=== PATIENT | male | born 1970 | race Caucasian/White ===

== ENCOUNTER 2020-01-15 14:40 | Emergency (ER) | payer BC ==
[~2020-01-15] VITALS: Ht 193 cm; Wt 147.4 kg
[~2020-01-15 14:40] MED LIST: CRESTOR10 MG PO; LEVOXYL200 MCG PO; TRICOR145 MG PO
--- OUTSIDE RECORDS SUMMARY | 2020-01-15 14:43 | XMS REPORT | Summary of Care ---
Author RONI Baker M.A. Organization Unknown Address [facility] Phone Unavailable Care Team Providers Care Tool Lapper Hand Name Role Phone TEREZA BARAJAS Unavailable Unavailable MONSE GARY [place], JOAQUIM MCCANN Unavailable Unavailable LEANNE GARY, PATRIZIA Walter Unavailable Unavailable MONSE Allison, JOAQUIM Unavailable Unavailable ERICKA PANIAGUA, TEREZA Unavailable Unavailable Unavailable Unavailable Functional Status Name Dates Details Functional status health issues are not documented Status: Name Dates Details Cognitive status health issues are not d ocumented Status: Problems Name Dates Details GAIL positive (795.79, R76.8) Status: Active Psoriasis (696.1, L40.9) Status: Active Inflamed scrotum (608.4, N49.2) Status: Active Paresthesia of skin (782.0, R20.2) Status: Active Morbid obesity (278.01, E66.01) Status: Active Acute pharyngitis (462, J02.9) Status: Active Malaise (780.79, R53.81) Status: Active Vitamin D deficiency (268.9, E55.9) Status: Active Hyperlipidemia (272.4, E78.5) Status: Active BMI 35.0-35.9,adult (V85.35, Z68.35) Status: Active Elevated bilirubin (277.4, R17) Status: Active Hematuria (599.70, R31.9) Status: Active Diarrhea (787.91, R19.7) Status: Active Back pain (724.5, M54.9) Status: Active Hospital discharge follow-up (V67.59, Z0 9) Status: Active Stroke (434.91, I63.9) Status: Active Word finding difficulty (V40.1, R47.89) Status: Active Speech block (784.59, R47.89) Status: Active Speech disorder (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 Quantity: 90 BARNETT P.A., TEREZA * Start : 02-Sep-2013 Active Humira Pen KIT INJECT ML Every other week pt states not being sure of dose. * Refills: 0 Active Levothyroxine Sodium 175 MCG Oral Tablet TAKE 1 TABLET DAILY * Quantity: 90 Refills: 1 BARNETT P.A., TEREZA * Start : 04-Apr-2018 Active Duexis 800-26.6 MG Oral Tablet TAKE 1 TABLET BEDTIME * Quantity: 30 Refills: 5 BARNETT P.A., TEREZA * Start : 18-Jul-2019 Active Atorvastatin Calcium 80 MG Oral Tablet TAKE 1 TABLET AT BEDTIME. * Quantity: 90 Refills: 0 BARNETT P.A., TEREZA Active Aspirin 81 MG Oral Tablet Chewable * Refills: 0 Active Clopidogrel Bisulfate 75 MG Oral Tablet TAKE 1 TABLET DAILY. 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, G51.0) Status: Resolved Procedures Procedure Dates Details [[facility]] TSH, 3RD GENERATION W/REFLEX TO FT4 Date: 09-Oct-2019 Immunization Name Dates Details Tdap on: 14-Jul-2008 Tdap (Boostrix) Lot #: [id number] on: 09-Oct-2019 Family History Name Dates Details Family history of Acute Myocardial Infar ction (V17.3) Status: Active Family history of Hypertension (V17.49) Status: Active Name Dates Details Family history of Acute Myocardial Infar ction (V17.3) Status: Active Family history of Diabetes Mellitus (V18 .0) Status: Active Social History Name Dates Details - Status: Name Dates Details Never smoked tobacco (finding) Vital Signs Date Test Result Details [id number] Physical Findings 5 Status: Comments: PH Q-9 Adult Depression Screening Results Date Description Value Details Results not documented Plan of Care Name Dates Details Planned Observations Planned Goals not documented Interventions Provided Labs/Procedures/Imaging* [[facility]] TSH, 3RD GENERATION W/REFLEX TO FT4; To Be Done: 09 Oct 2019 Follow-ups/Referrals* Dermatology Referral; To Be Done: 09 Oct 2019 Medications/Immunizations Administered* Tdap (Boostrix); Done: 09 Oct 2019 Instructions Name Dates Details Instructions not documented Encounters Appointment; TEREZA BARNETT P.A. Encounter Diagnosis: Problem not documented On: 22-Mar-2018 15:00 Appointment; TEREZA BARNETT P.A. Encounter Diagnosis: Problem not documented On: 22-Aug-2018 15:00 Appointment; TEREZA BARNETT P.A. Encounter Diagnosis: Problem not documented On: 20-Mar-2019 15:00 Appointment; PALMA CASAREZ P.A. Encounter Diagnosis: Problem not documented On: 04-May-2019 9:15 Appointment; TEREZA BARNETT P.A. Encounter Diagnosis: Problem not documented On: 22-Aug-2019 10:45 Appointment; TEREZA BARNETT P.A. Encounter Diagnosis: Problem not documented On: 09-Oct-2019 10:00
--- OUTSIDE RECORDS SUMMARY | 2020-01-15 14:43 | XMS REPORT ---
Author Author RONI Pereira Organization Unknown Address Unknown Phone Care Team Providers Care Plate Mounter Name Role Phone Shanti Pereira PP Unavailable Reason for Referral No Reason for Referral was given. History of Present Illness No HPI available. Problems * Normal Routine History And Physical Adult (V70.0); (Active) * Hypothyroidism (244.9); (Active) * Hyperlipidemia (272.4); (Active) Medication * Synthroid 200 MCG Oral Tablet; TAKE 1 TABLET DAILY. NEEDS OFFICE VISIT; Start Date: 09/02/2013; End Date: (Active) * Synthroid 25 MCG Oral Tablet; TAKE 1 TABLET DAILY.NEEDS OFFICE VISIT; Start Date: 09/02/2013; End Date: (Active) * Fenofibrate 145 MG Oral Tablet; 1 po once a day NEEDS OFFICE VISIT; Start Date: 09/02/2013; End Date: (Active) * Crestor 10 MG Oral Tablet; 1 po q dayNEEDS OFFICE VISIT; Start Date: 09/02/2013; End Date: (Active) Allergies and Adverse Reactions * Not Known Past Medical History * No Significant Medical History Advance Directives * No Advance Directives available. Encounters * AUDIT 09/02/2013
--- OUTSIDE RECORDS SUMMARY | 2020-01-15 14:43 | XMS REPORT | Summary of Care ---
Author RONI Sarabia Organization Unknown Address Unknown Phone Unavailable Care Team Providers Care Ammonia Refrigeration Worker Name Role Phone TEREZA BARAJAS Unavailable Unavailable Eduarda Goldberg, Emily Unavailable Unavailable MONSE GARY [place], JOAQUIM MCCANN Unavailable Unavailable LEANNE GARY, PATRIZIA Walter Unavailable Unavailable MONSE Allison, JOAQUIM Pyle Unavailable ERICKA PANIAGUA, TEREZA Unavailable Unavailable Unavailable [...] Status: Active Hyperlipidemia (272.4, E78.5) Status: Active Hypothyroidism (244.9, E03.9) Status: Active BMI 35.0-35.9,adult (V85.35, Z68.35) Status: Active Elevated bilirubin (277.4, R17) Status: Active Hematuria (599.70, R31.9) Status: Active Diarrhea (787.91, R19.7) Status: Active Back pain (724.5, M54.9) Status: Active Hospital discharge follow-up (V67.59, Z0 9) Status: Active Stroke (434.91, I63.9) Status: Active Word finding difficulty (V40.1, R47.89) Status: Active Speech block (784.59, R47.89) Status: Active 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 * Quantity: 30 Refills: 2 BARNETT P.A., TEREZA * Start : 09-Jul-2018 Active Duexis 800-26.6 MG Oral Tablet TAKE 1 TABLET BEDTIME * Quantity: 30 Refills: 5 BARNETT P.A., TEREZA * Start : 18-Jul-2019 Active Atorvastatin Calcium 80 MG Oral Tablet TAKE 1 TABLET AT BEDTIME. 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, G51.0) Status: Resolved Procedures Procedure Dates Details Procedures not documented Immunization Name Dates Details Tdap on: 14-Jul-2008 Family History Name Dates Details Family history of Acute Myocardial Infar ction (V17.3) Status: Active Family history of Hypertension (V17.49) Status: Active Name Dates Details Family history of Acute Myocardial Infar ction (V17.3) Status: Active Family history of Diabetes Mellitus (V18 .0) Status: Active Social History Name Dates Details - Status: Name Dates Details Never smoker Vital Signs Date Test Result Details [id number] BP Systolic 123 mm[Hg] Status: Comments: Lo cation: LUE; Position: Sitting BP Diastolic 82 mm[Hg] Status: Comments: Lo cation: LUE; Position: Sitting Height 76 in Status: Weight 311 lb Status: Body Mass Index Calculated 37.86 kg/m2 Status: Body Surface Area Calculated 2.67 m2 Status: Temperature 98 f Status: Comments: Me thod: Temporal Heart Rate 66 /min Status: Respiration Rate 16 /min Status: Physical Findings 0 Status: Comments: Maurice candelario Screen - How many times in the past yr have you had 5 (for M) or 4 (for F) or 4 (for all > 65yrs) or more drinks in a day? Results Date Description Value Details Results not documented Plan of Care Name Dates Details Planned Observations Planned Goals not documented Interventions Provided Labs/Procedures/Imaging* [O] Urine Dipstick (In Office); Done: 04 May 2019 Instructions Name Dates Details Instructions not documented Encounters Appointment; TEREZA BARNETT PHeather Encounter Diagnosis: Problem not documented On: 22-Mar-2018 15:00 Appointment; TEREZA BARNETT P.A. Encounter Diagnosis: Problem not documented On: 22-Aug-2018 15:00 Appointment; TEREZA BARNETT PHeather Encounter Diagnosis: Problem not documented On: 20-Mar-2019 15:00 Appointment; PALMA CASAREZ P.A. Encounter Diagnosis: Problem not documented On: 04-May-2019 9:15
--- OUTSIDE RECORDS SUMMARY | 2020-01-15 14:43 | XMS REPORT | Summary of Care ---
Author Author [facility] Address Unknown Phone Unavailable Encounter HQ Jose_javi(CASSIUS) [id number] Date(s): 10/10/19 - 11/08/19 [facility] Discharge Disposition: Home or Self Care Attending Physician: TEREZA BARNETT Vital Signs No data available for this section Problem List No data available for this section Allergies, Adverse Reactions, Alerts No data available for this section Medications No data available for this section Results No data available for this section Immunizations No data available for this section Procedures No data available for this section Social History Social History Type Response Assessment and Plan No data available for this section
--- OUTSIDE RECORDS SUMMARY | 2020-01-15 14:43 | XMS REPORT | Clinical Summary ---
Author Author CANDIS [facility] Address Unknown Phone Unavailable Care Team Providers Care Waxer Name Role Phone PCP Unavailable Allergies Comments Active Allergy Reactions Severity Noted Date Other reaction(s): Can not take Brand Synthroid. He takes generic levothyroxine at home Levothyroxine Sodium Itching 08/11/2019 Medications End Date Status Medication Sig Dispensed Refills Start Date Active fenofibrate (TRICOR) 145 Take 145 mg 0 MG tablet by mouth daily. Active HUMIRA PEN 40 mg/0.8 mL 0 PnKt 9 08/16/2020 Active aspirin 81 MG chewable Take 1 tablet 30 tablet 11 0 tablet (81 mg total) 0 by mouth daily. 08/15/2020 Active atorvastatin (LIPITOR) 80 Take 1 tablet 30 tablet 11 MG tablet (80 mg total) 0 by mouth nightly. Active ibuprofen-famotidine Take by mouth 0 (DUEXIS) 800-26.6 mg Tab 3 (three) times daily. Active levothyroxine sodium Take 175 mcg 0 (LEVOXYL ORAL) by mouth daily. 10/03/2019 Discontinued rosuvastatin (CRESTOR) 10 Take 10 mg by 0 08/15 0201 MG tablet mouth daily. 4 10/03/2019 Discontinued levothyroxine (SYNTHROID) Daily 0 200 MCG tablet 11/04/2019 clopidogrel (PLAVIX) 75 Take 1 tablet 30 tablet 0 mg tablet (75 mg total) 0 by mouth daily for 30 days. Active Problems Problem Noted Date PFO (patent foramen ovale) 10/03/2019 Psoriasis 08/12/2019 Status post administration of tPA (rtPA) in a [facility] facility within the 08/12/2019 last 24 hours prior to admission to [facility] Middle cerebral artery stenosis, right 08/12/2019 HTN (hypertension) 08/12/2019 Hyperlipidemia 08/12/2019 Thyroid disease 08/12/2019 Stroke 08/11/2019 Encounters Care Team Description Date Type Specialty Verona Appiah MD TRANSCATHETER CLOSURE OF PFO 10/03/2019 Surgery Aldair Macario MD 10/03/2019 Anesthesia Event Verona Appiah MD Mixed hyperlipidemia; PFO (patent foramen ovale) 10/03/2019 Hospital Cardiology - Encounter 10/04/2019 10/03/2019 Orders Only General Internal Ny dicine 10/03/2019 Travel Elena Lynch MD 08/12/2019 Anesthesia Event Virtual, Surgeon PROCEDURE DONE OUTSIDE OR 08/12/2019 Surgery 08/12/2019 Orders Only General Internal Ny Walter Molina MD Gadicherla, Sonal Muralinath, MD Acute CVA (cerebrovascular accident) (HC C) (Primary Dx); S/P admn tPA in diff fac w/n last 24 hr bef adm to crnt fac; Hyperlipidemia, unspecified hyperlipidemia type; Impaired mobility and ADLs; Hypertension, unspecified type; Status post administration of tPA (rtPA) in a different facility within the last 24 hours prior to admission to current facility; Speech and language deficits; PFO (patent foramen ovale); Cryptogenic stroke (HCC) 08/11/2019 [facility] Internal Ny dicine - Encounter 08/16/2019 08/11/2019 Travel after 01/14/2019 Social History Date Tobacco Use Types Packs/Day Years Used Never Smoker Smokeless Tobacco: Never Used Alcohol Use Drinks/Week oz/Week Comments Yes rarely Sex Assigned at Date Recorded Not on file Industry Job Start Date Occupation Not on file Not on file Not on file Travel End Travel History Travel Start No recent travel history available. Last Filed Vital Signs Time Taken Vital Sign Reading 10/04/2019 7:25 AM [employer] Blood Pressure 120/75 10/04/2019 7:25 AM [employer] Pulse 79 10/04/2019 7:25 AM [employer] Temperature 36.9 C (98.4 F) 10/04/2019 7:25 AM [employer] Respiratory Rate 18 10/04/2019 7:25 AM [employer] Oxygen Saturation 98% - Inhaled Oxygen - Concentration 10/04/2019 9:39 AM [employer] Weight 143.6 kg (316 lb 8 oz) 10/03/2019 8:58 AM [employer] Height 193 cm (6' 4") 10/04/2019 9:39 AM [employer] Body Mass Index 38.53 Plan of Treatment Not on file Implants Device Identifier Shelf Expiration Date Model / Serial / L ot Implanted Type Area Manufactur er [id number] 06/13/2024 9-PFO-025 / / [id number] Occl Pfo Amplatzer 25mm 9-Pfo-025 - IMPLANTS [employer] Navigation [id number] Implanted: Qty: 1 on 10/03/2019 by Verona Appiah MD Procedures Comments Procedure Name Priority Date/Time Associated Diag nosis ECHOCARDIOGRAM REPORT - 10/15/2019 SCAN 9:10 PM [employer] RHYTHM STRIP - SCAN 10/09/2019 7:41 AM [employer] CARDIAC CATH REPORT - 10/09/2019 SCAN 7:41 AM [employer] RHYTHM STRIP - SCAN 10/08/2019 4:00 PM [employer] ECHOCARDIOGRAM REPORT - 10/04/2019 SCAN 9:21 PM [employer] ECHO W CONTRAST & DOPPLER Pending 10/04/2019 Discharge 2:20 PM [employer] CBC W/PLT COUNT & AUTO Routine 10/04/2019 DIFFERENTIAL 4:44 AM [employer] T4, FREE Routine 10/04/2019 4:44 AM [employer] TSH/FREE T4 IF INDICATED Routine 10/04/2019 4:44 AM [employer] MAGNESIUM Routine 10/04/2019 4:44 AM [employer] CBC W/PLT COUNT & AUTO Routine 10/04/2019 DIFFERENTIAL 4:44 AM [employer] PHOSPHORUS Routine 10/04/2019 4:44 AM [employer] CALCIUM, IONIZED Routine 10/04/2019 4:44 AM [employer] BASIC METABOLIC PANEL (7) Routine 10/04/2019 4:44 AM [employer] TRANSCATHETER CLOSURE OF 10/03/2019 PFO (patent foramen PFO 5:15 PM [employer] ovale) Case Notes (1)6TOP/ ANESTHESIA Special Needs REQ. @ 11:30 POCT-ACT Routine 10/03/2019 3:54 PM [employer] CONT WAVE PULSED DOPPLER Routine 10/03/2019 2:16 PM [employer] COLOR-FLOW MAPPING Routine 10/03/2019 2:16 PM [employer] TRANSESOPHAGEAL ECHO Routine 10/03/2019 1:00 PM [employer] ECG 12-LEAD Routine 10/03/2019 9:59 AM [employer] Procedure Note - Interface, External Ris In - 10/03/2019 10:12 AM [employer] Ventricula r Rate 76 BPM Atrial Rate 76 BPM P-R Interval 160 ms QRS Duration 96 ms Q-T Interval 410 ms QTC Calculatio n(Bazett) 461 ms P [place] 46 degrees R [place] 64 degrees T [place] 33 degrees Normal sinus rhythm Normal ECG When compared with ECG of 09:19, Nonspecifi c T wave abnormalit y no longer evident in Inferior leads ECG 12-LEAD Routine 10/03/2019 9:59 AM [employer] CBC W/PLT COUNT & AUTO Routine 10/03/2019 DIFFERENTIAL 9:29 AM [employer] PT/APTT Routine 10/03/2019 9:29 AM [employer] CBC W/PLT COUNT & AUTO Routine 10/03/2019 DIFFERENTIAL 9:29 AM [employer] BASIC METABOLIC PANEL (7) Routine 10/03/2019 9:29 AM [employer] ARRYTHMIA IMPLANT REPORT 09/06/2019 - SCAN 10:21 AM [employer] REPORT OF PROCEDURE - 08/20/2019 ENDOSCOPY SCAN 11:12 AM [employer] PERMANENT LAB REPORT - 08/20/2019 SCAN 11:12 AM [employer] RHYTHM STRIP - SCAN 08/20/2019 11:11 AM [employer] CBC (HEMOGRAM ONLY) Routine 08/16/2019 4:52 AM [employer] ECHOCARDIOGRAM REPORT - 08/15/2019 SCAN 9:10 PM [employer] TRANSESOPHAGEAL ECHO Routine 08/15/2019 12:22 PM [employer] CONT WAVE PULSED DOPPLER Routine 08/15/2019 10:57 AM [employer] COLOR-FLOW MAPPING Routine 08/15/2019 10:57 AM [employer] BASIC METABOLIC PANEL (7) Routine 08/15/2019 5:17 AM [employer] CBC (HEMOGRAM ONLY) Routine 08/15/2019 5:17 AM [employer] PERIPHERAL VASCULAR 08/14/2019 REPORT - SCAN 9:10 PM [employer] BASIC METABOLIC PANEL (7) Routine 08/14/2019 4:12 AM [employer] CBC (HEMOGRAM ONLY) Routine 08/14/2019 4:12 AM [employer] TRANSFUSION SERVICE 08/13/2019 REPORT - SCAN 5:52 PM [employer] PROTEIN C ACTIVITY AP Routine 08/13/2019 4:48 PM [employer] VENOUS DOPPLER LEGS Routine 08/13/2019 BILATERAL 4:35 PM [employer] FACTOR 5 LEIDEN PCR Routine 08/13/2019 (THROMBOTIC RISK) 11:11 AM [employer] PROTHROMBIN GENE MUTATION Routine 08/13/2019 11:11 AM [employer] PROTEIN S ANTIGEN, TOTAL Routine 08/13/2019 11:11 AM [employer] PROTEIN S ACTIVITY Routine 08/13/2019 11:11 AM [employer] PROTEIN C ANTIGEN, TOTAL Routine 08/13/2019 11:11 AM [employer] BASIC METABOLIC PANEL (7) Routine 08/13/2019 4:06 AM [employer] CBC (HEMOGRAM ONLY) Routine 08/13/2019 4:06 AM [employer] CRYOGLOBULIN Routine 08/13/2019 4:06 AM [employer] ANTI-NEUTROPHIL Routine 08/13/2019 CYTOPLASMIC AB (ANCA) 4:06 AM [employer] RHEUMATOID FACTOR AB, Routine 08/13/2019 REFLEX TO TITER 4:06 AM [employer] SJOGREN'S ANTIBODIES Routine 08/13/2019 4:06 AM [employer] COMPLEMENT COMPONENT C4 Routine 08/13/2019 4:06 AM [employer] COMPLEMENT COMPONENT C3 Routine 08/13/2019 4:06 AM [employer] C-REACTIVE PROTEIN Routine 08/13/2019 4:06 AM [employer] DOUBLE-STRANDED DNA Routine 08/13/2019 (DSDNA) ANTIBODY 4:06 AM [employer] ANTI-NUCLEAR ANTIBODY Routine 08/13/2019 (GAIL) 4:06 AM [employer] HOMOCYSTEINE Routine 08/13/2019 4:06 AM [employer] ANTITHROMBIN III Routine 08/13/2019 4:06 AM [employer] ECHOCARDIOGRAM REPORT - 08/12/2019 SCAN 9:12 PM [employer] MR BRAIN WITHOUT IV STAT 08/12/2019 CONTRAST 9:01 PM [employer] NV CEREBRAL 4 VESSEL Routine 08/12/2019 ANGIOGRAM 4:02 PM [employer] PROCEDURE DONE OUTSIDE OR 08/12/2019 Cerebrovasc ular accident 1:00 PM [employer] (CVA), unspecified mechanism (HCC) ABORH, MANUAL STAT 08/12/2019 10:10 AM [employer] 2D ECHO W/ DOPPLER Routine 08/12/2019 (CW/PW/COLOR) 10:08 AM [employer] TYPE AND SCREEN STAT 08/12/2019 9:43 AM [employer] PT/APTT STAT 08/12/2019 9:43 AM [employer] ECG 12-LEAD Routine 08/12/2019 9:19 AM [employer] Procedure Note - Interface, External Ris In - 08/12/2019 2:38 PM [employer] Ventricula r Rate 78 BPM Atrial Rate 78 BPM P-R Interval 168 ms QRS Duration 94 ms Q-T Interval 400 ms QTC Calculatio n(Bazett) 456 ms P [place] 29 degrees R [place] 10 degrees T [place] 31 degrees Normal sinus rhythm Normal ECG No previous ECGs available ECG 12-LEAD STAT 08/12/2019 9:19 AM [employer] BASIC METABOLIC PANEL (7) Routine 08/12/2019 6:18 AM [employer] CBC W/PLT COUNT & AUTO Routine 08/12/2019 DIFFERENTIAL 5:15 AM [employer] CBC W/PLT COUNT & AUTO Routine 08/12/2019 DIFFERENTIAL 5:15 AM [employer] LIPID PANEL Routine 08/12/2019 12:44 AM [employer] HEMOGLOBIN A1C Routine 08/12/2019 12:44 AM [employer] TSH/FREE T4 IF INDICATED Routine 08/12/2019 12:44 AM [employer] TROPONIN I Routine 08/12/2019 12:44 AM [employer] VITAMIN B12 AND FOLATE Routine 08/12/2019 12:44 AM [employer] XR CHEST 1 VIEW STAT 08/11/2019 PORTABLE/BEDSIDE 9:12 PM [employer] CBC W/PLT COUNT & AUTO Routine 08/11/2019 DIFFERENTIAL 9:11 PM [employer] RPR Routine 08/11/2019 9:11 PM [employer] LIPID PANEL Routine 08/11/2019 9:11 PM [employer] HEMOGLOBIN A1C Routine 08/11/2019 9:11 PM [employer] TROPONIN I Routine 08/11/2019 9:11 PM [employer] TSH/FREE T4 IF INDICATED Routine 08/11/2019 9:11 PM [employer] CBC W/PLT COUNT & AUTO Routine 08/11/2019 DIFFERENTIAL 9:11 PM [employer] BASIC METABOLIC PANEL (7) Routine 08/11/2019 9:11 PM [employer] after 01/14/2019 Results * ECHOCARDIOGRAM REPORT - SCAN (10/15/2019 9:10 PM [employer]) Narrative Performed At This result has an attachment that is n ot available. * RHYTHM STRIP - SCAN (10/09/2019 7:41 AM [employer]) Only the most recent of 3 results within the time period is included. Narrative Performed At This result has an attachment that is n ot available. * CARDIAC CATH REPORT - SCAN (10/09/2019 7:41 AM [employer]) Narrative Performed At This result has an attachment that is n ot available. * ECHOCARDIOGRAM REPORT - SCAN (10/04/2019 9:21 PM [employer]) Narrative Performed At This result has an attachment that is n ot available. 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 Height: 76 inches Weight: 144.24 kg (31 8 lbs) BSA: 2.7 m^2 BMI: 38.71 kg/m^2 Summary An atrial septal occluder device appear s normally deployed. IV saline contrast injection was negati ve for a residual PFO (patent foramen ovale) at rest and post Valsalv a . Normal left ventricular chamber size. N o apparent segmental wall motion abnormalities. Estimated LVEF by qualit ative assessment is normal (>60%) . Unable to estimate peak systolic PA pre ssure; inadequate TR velocity signal. Signature Findings Left Ventricle Normal l eft ventricular chamber size. Normal wall thickness. Normal overall left ventricular systolic function. No apparent segmental wall motion abnormalities. Estimated LVEF by qualitative assessment is normal (>60%) . Left AtriumLA s ize is normal . Right VentricleNormal r ight ventricle structure and function. Right Atrium Normal right atrium. Atrial SeptumAn atr ial septal occluder device appears normally deployed. IV saline contrast injection was negative for a residual PFO (patent foramen ovale) at rest and post Valsalva . Aortic Valve Normal AoV structure. Mitral Valve Normal MV structure. Tricuspid ValveA trace of tricuspid regurgitation. Unable to estimate peak systolic PA pressure; inadequate TR velocity signal. Pulmonic Valve Normal P V structure and function by limited views and Doppler. Aorta Aortic root size (SInus of Valsalva diameter) is mildly dilated . PericardiumNo e vidence of pericardial effusion. IVC/SVC/PA/PV/PleuralThe estimated RA pressure by IVC dynamics 5-10mmHg . Chambers/Structures Left Atrium LA Dimension: 4.22 cm LA Area: 23.61 cm^2 LA Volume: 77.41 ml LA Vol. Index: 29 ml/m^2 Left Ventricle LVIDd: 5.41 cmLVEDV:141. 65 ml LV Septum Diastolic: 0.66 cm LV PW Diastolic: 0.95 cm LVEDV Appiah's:145.61 ml LVESV Appiah's:40.15 ml LVEF Appiah's: 72.4 % LVEDVI: 54 ml/m^2 LVESVI: 15 ml/m^2 LVOT Diameter: 2.29 cm Aorta Ao Root S of Kailee.: 4.19 cm Doppler/Quantitative Measurements Mitral Valve MV Peak E-Wave: 0.78 m/s MV Peak A-Wave: 0.58 m/s E/A Ratio: 1.33 Peak Gradient: 2.42 mmHg Decelera tion Time: 202.9 msec MV Mj. Peak: Aortic Valve Peak Velocity: 1.27 m/s Mean Velocity: 0.93 m/s Peak Gradient: 6.48 mmHg Mean Gradient: 3.71 mmHg AV Area (continuity): 3.75 cm^2 AV VTI: 22.76 cm AV DVI: 0.91 LVOT Peak Velocity: 1.06 m/s Peak Gradient: 4.47 mmHg Mean Velocity: 0.75 m/s Mean Gradient: 2.54 mmHg LVOT Diameter: 2.29 cm LVOT VTI: 20.71 cm LVOT Area: 4.12 cm^2 LVOT SV:85.26 ml Procedure Note Interface, External Ris In - 10/04/2019 4:37 PM [employer] Transthoracic Echocardiography Report (TTE) Demographics Patient Name RONI VENTURA Date of Study 10/04/2019 BYRANT Gender Male Visit Number [id number] Race Room Number [id number] Number Date of 1970 Referring Physician VERONA APPIAH Age 49 year(s) [employer]er Angelica Christian [facility] [employer] Interpreting Physician ABDIRAHMAN Mejia Procedure Type of Study TTE procedure:2DECHO W/CONTRAST & DOPPLER Indications:Patent foramen ovale (PFO). Height: 76 inches Weight: 144.24 kg (318 lbs) BSA: 2.7 m^2 BMI: 38.71 kg/m^2 Summary An atrial septal occluder device appears normally deployed. IV saline contrast injection was negative for a residual PFO (patent foramen ovale) at rest and post Valsalva . Normal left ventricular chamber size. No apparent segmental wall motion abnormalities. Estimated LVEF by qualitative assessment is normal (>60%) . Unable to estimate peak systolic PA pressure; inadequate TR velocity signal. Signature Findings Left Ventricle Normal left ventricular chamber size. Normal wall thickness. Normal overall left ventricular systolic function. No apparent segmental wall motion abnormalities. Estimated LVEF by qualitative assessment is normal (>60%) . Left Atrium LA size is normal . Right Ventricle Normal right ventricle structure and function. Right Atrium Normal right atrium. Atrial Septum An atrial septal occluder device appears normally deployed. IV saline contrast injection was negative for a residual PFO (patent foramen ovale) at rest and post Valsalva . Aortic Valve Normal AoV structure. Mitral Valve Normal MV structure. Tricuspid Valve A trace of tricuspid regurgitation. Unable to estimate peak systolic PA pressure; inadequate TR velocity signal. Pulmonic Valve Normal PV structure and function by limited views and Doppler. Aorta Aortic root size (SInus of Valsalva diameter) is mildly dilated . Pericardium No evidence of pericardial effusion. IVC/SVC/PA/PV/Pleural The estimated RA pressure by IVC dynamics 5-10mmHg . Chambers/Structures Left Atrium LA Dimension: 4.22 cm LA Area: 23.61 cm^2 LA Volume: 77.41 ml LA Vol. Index: 29 ml/m^2 Left Ventricle LVIDd: 5.41 cm LVEDV:141.65 ml LV Septum Diastolic: 0.66 cm LV PW Diastolic: 0.95 cm LVEDV Appiah's:145.61 ml LVESV Appiah's:40.15 ml LVEF Appiah's: 72.4 % LVEDVI: 54 ml/m^2 LVESVI: 15 ml/m^2 LVOT Diameter: 2.29 cm Aorta Ao Root S of Kailee.: 4.19 cm Doppler/Quantitative Measurements Mitral Valve MV Peak E-Wave: 0.78 m/s MV Peak A-Wave: 0.58 m/s E/A Ratio: 1.33 Peak Gradient: 2.42 mmHg Deceleration Time: 202.9 msec MV Mj. Peak: Aortic Valve Peak Velocity: 1.27 m/s Mean Velocity: 0.93 m/s Peak Gradient: 6.48 mmHg Mean Gradient: 3.71 mmHg AV Area (continuity): 3.75 cm^2 AV VTI: 22.76 cm AV DVI: 0.91 LVOT Peak Velocity: 1.06 m/s Peak Gradient: 4.47 mmHg Mean Velocity: 0.75 m/s Mean Gradient: 2.54 mmHg LVOT Diameter: 2.29 cm LVOT VTI: 20.71 cm LVOT Area: 4.12 cm^2 LVOT SV:85.26 ml Performing Organization Address City/State/Zipcode Ph one Number [facility] [id number] CPACS * TSH/Free T4 If Indicated (10/04/2019 4:44 AM [employer]) Only the most recent of 3 results within the time period is included. TSH 6.11 (H) 0.35 - 4.94 uIU/mL [facility] Specimen Blood Narrative Performed At Senior Php Web Developer MARIANN Lee [facility] Performing Organization Address City/[facility] Ph one Number [place] [phone] [place] [address] * Calcium, Ionized (10/04/2019 4:44 AM [employer]) Calcium, Ion 1.14 1.12 - 1.27 mmol/L [facility] pH, Blood 7.41 [facility] Specimen Blood Performing Organization Address [facility] Ph one Number [place] [phone] [place] [address] * CBC with platelet count + automated diff (10/04/2019 4:44 AM [employer]) Only the most recent of 4 results within the time period is included. WBC 7.9 3.5 - 10.5 K/L [facility] RBC 4.60 (L) 4.63 - 6.08 M/L [facility] Hemoglobin 13.7 13.7 - 17.5 GM/DL [facility] Hematocrit 42.2 40.1 - 51.0 % [facility] MCV 91.7 79.0 - 92.2 fL [facility] MCH 29.8 25.7 - 32.2 pg [facility] MCHC 32.5 32.3 - 36.5 GM/DL [facility] RDW 12.6 11.6 - 14.4 % [facility] Platelets 187 150 - 450 K/CU MM [facility] MPV 10.8 9.4 - 12.4 fL [facility] nRBC 0 0 - 0 /100 WBC [facility] % Neutros 63 % [facility] % Lymphs 23 % [facility] % Monos 9 % [facility] % Eos 4 % [facility] % Baso 1 % [facility] # Neutros 4.99 1.78 - 5.38 K/L [facility] # Lymphs 1.81 1.32 - 3.57 K/L [facility] # Monos 0.73 0.30 - 0.82 K/L [facility] # Eos 0.30 0.04 - 0.54 K/L [facility] # Baso 0.06 0.01 - 0.08 K/L [facility] Immature 0 0 - 1 % [facility] Granulocytes-[facility] Specimen Blood Performing Organization Address City/[facility] Ph one [place] [phone] [place] [address] * T4, free (10/04/2019 4:44 AM [employer]) Free T4 1.09 0.70 - 1.48 ng/dL [facility] Specimen Blood Narrative Performed At Senior Php Web Developer ID - BS [facility] Performing Organization Address City/[facility] Ph one Number [place] [phone] [facility] * Phosphorus (10/04/2019 4:44 AM [employer]) Phosphorus 3.3 2.3 - 4.7 mg/dL [facility] Specimen Blood Narrative Performed At Senior Php Web Developer ID - ANNE Lee [facility] Performing Organization Address City/[facility] Ph one Number [address] [facility] * Magnesium (10/04/2019 4:44 AM [employer]) Magnesium 1.9 1.6 - 2.6 mg/dL [facility] Specimen Blood Narrative Performed At Senior Php Web Developer ID - ANNE Lee [facility] Performing Organization Address City/[facility] Ph one Number [phone] [facility] * Basic Metabolic Panel (10/04/2019 4:44 AM [employer]) Only the most recent of 7 results within the time period is included. Sodium 142 136 - 145 meq/L [facility] Potassium 3.8 3.5 - 5.1 meq/L [facility] Chloride 111 (H) 98 - 107 meq/L [facility] CO2 24 22 - 29 meq/L [facility] BUN 16 7 - 21 mg/dL [facility] Creatinine 1.06 0.57 - 1.25 mg/dL [facility] Glucose 93 70 - 105 mg/dL [facility] Calcium 8.9 8.4 - 10.2 mg/dL [facility] EGFR 75Comment: ESTIMATED GFR IS mL/min/1.[address] [facility] NOT ACCURATE CREATININE [facility] CLEARANCE IN PREDICTING GLOMERULAR FILTRATION RATE. ESTIMATED GFR IS NOT APPLICABLE FOR DIALYSIS PATIENTS. Specimen Blood Narrative Performed At Senior Php Web Developer ID - ANNE Rosa [facility] Performing Organization Address City/[facility] Ph one Number [address] [address] [facility] * POC ACTIVATED CLOTTING TIME (10/03/2019 3:54 PM [employer]) Activated Clotting Time 252Comment: : 74-137 seconds, sec [facility] Baseline: TESTED AT [facility] [address] [facility], [address]: Senior Php Web Developer/Nutritional Health Coach ID = [id number] for MICHAEL WILSON Specimen Blood Performing Organization Address City/State/Zipcode Ph one Number [address] [facility] * Transesophageal echo (10/03/2019 1:00 PM [employer]) Ejection Fraction [facility] E[facility]ART[facility] Specimen Narrative Performed At Transesophageal Echocardiography Report (WILLIAM) [facility] Demographics [facility], a Division of [facility] Patient Name RONI VENTURA ate of Study 10/03/2019 [id number] GenderMale Visit Number [id number] Greg boyle [id number] Room Number C623 Number Date of Birth1970 Referring Physician Verona Appiah MD 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 Clinical History HLD,STROKE,THYROID DISEASE Height: 76 inches Weight: 144.24 kg (31 8 lbs) BSA: 2.7 m^2 BMI: 38.71 kg/m^2 HR: 74 bpm BP: 142/94 mmHg Summary POST PROCEDURE: PFO closure An atrial septal occluder device appear s normally deployed. No residual atrial level shunt noted by color Doppler. No significant pericardial effusion is visualized. Signature Findings Rhythm/BP Regular sinus rhythm during the exam. LeftNormal left rony tricular chamber size. Normal wall thickness. Ventricle Normal overall left v entricular systolic function. No apparent s egmental wall motion abnormalities. Left Atrium No evidence of left atr ial or left atrial appendage thrombus. Right RV chamber size i s mildly enlarged . Ventricle Global RV systolic fu nction is normal . Right AtriumNo mass or thrombus is seen in the right atrium. Atrial Septum The interatrial septum is adequately visualized. An atrial septal occluder device appears normally deployed. No residua l atrial level shunt noted by color Doppler. Aortic ValveAoV is not well visuali zed. Mitral ValveNormal MV structure and function. Tricuspid TV is not well visual ized. Valve PulmonicPV is not well visu alized. Valve Aorta Aortic root and p roximal ascending aorta are not well visualized in this limited study Pericardium No significant pericard ial effusion is visualized. 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 Clinical History HLD,STROKE,THYROID DISEASE Height: 76 inches Weight: 144.24 kg (318 lbs) BSA: 2.7 m^2 BMI: 38.71 kg/m^2 HR: 74 bpm BP: 142/94 mmHg Summary POST PROCEDURE: PFO closure An atrial septal occluder device appears normally deployed. No residual atrial level shunt noted by color Doppler. No significant pericardial effusion is visualized. Signature Findings Rhythm/BP Regular sinus rhythm during the exam. Left Normal left ventricular chamber size. Normal wall thickness. Ventricle Normal overall left ventricular systolic function. No apparent segmental wall motion abnormalities. Left Atrium No evidence of left atrial or left atrial appendage thrombus. Right RV chamber size is mildly enlarged . Ventricle Global RV systolic function is normal . Right Atrium No mass or thrombus is seen in the right atrium. Atrial Septum The interatrial septum is adequately visualized. An atrial septal occluder device appears normally deployed. No residual atrial level shunt noted by color Doppler. Aortic Valve AoV is not well visualized. Mitral Valve Normal MV structure and function. Tricuspid TV is not well visualized. Valve Pulmonic PV is not well visualized. Valve Aorta Aortic root and proximal ascending aorta are not well visualized in this limited study Pericardium No significant pericardial effusion is visualized. Performing Organization Address City/State/[facility] one Number [facility] ECHO [facility]ART[facility] * ECG 12 lead (10/03/2019 9:59 AM [employer]) Only the most recent of 2 results within the time period is included. Specimen Narrative Performed At Ventricular Rate 76 BPM SeeMedia Atrial Rate 76 BPM P-R Interval 160 ms QRS Duration 96 ms Q-T Interval 410 ms QTC Calculation(Bazett) 461 ms P [place] 46 degrees R [place] 64 degrees T [place] 33 degrees Normal sinus rhythm Normal ECG When compared with ECG of 12-AUG-2019 0 9:19, Nonspecific T wave abnormality no longe r evident in Inferior leads Confirmed by Estefany LARRY, SARITA ([id number]) on 10/04/2019 7:58:15 AM Procedure Note Interface, External Ris In - 10/04/2019 7:58 AM [employer] Ventricular Rate 76 BPM Atrial Rate 76 BPM P-R Interval 160 ms QRS Duration 96 ms Q-T Interval 410 ms QTC Calculation(Bazett) 461 ms P [place] 46 degrees R [place] 64 degrees T [place] 33 degrees Normal sinus rhythm Normal ECG When compared with ECG of 12-AUG-2019 09:19, Nonspecific T wave abnormality no longer evident in Inferior leads Confirmed by Estefany LARRY BASANT ([id number]) on 10/04/2019 7:58:15 AM Performing Organization Address [facility] Ph one Number GE MUSE * PT/aPTT (10/03/2019 9:29 AM [employer]) Only the most recent of 2 results within the time period is included. Protime 13.1 11.9 - 14.2 seconds [facility] INR 1.0 <=5.9 [facility] PTT 25.7 22.5 - 36.0 seconds [facility] Specimen Blood Narrative Performed At Effective 01/09/2019: PT Reference Range Change [facility] New: 11.9-14.2Previous: 11.7-14.7 [facility] MEDICAL CE NTER RECOMMENDED COUMADIN/WARFARIN INR THERA PY RANGES STANDARD DOSE: 2.0-3.0Includes: PRO PHYLAXIS for venous thrombosis, systemic embolization; TREATMENT for venous thro mbosis and/or pulmonary embolus. HIGH RISK: Target INR is 2.5-3.5 for pa tients wiht mechanical heart valves. Performing Organization Address [facility] Ph one Number [place] [address] [facility] * ARRYTHMIA IMPLANT REPORT - SCAN (09/06/2019 10:21 AM [employer]) Narrative Performed At This result has an attachment that is n ot available. * EKG-SCANNED (08/20/2019 11:12 AM [employer]) Narrative Performed At This result has an attachment that is n ot available. * PERMANENT LAB REPORT - SCAN (08/20/2019 11:12 AM [employer]) Narrative Performed At This result has an attachment that is n ot available. * CBC (Hemogram only) (08/16/2019 4:52 AM [employer]) Only the most recent of 4 results within the time period is included. WBC 7.2 3.5 - 10.5 K/L [facility] RBC 5.12 4.63 - 6.08 M/L [facility] Hemoglobin 15.2 13.7 - 17.5 GM/DL [facility] Hematocrit 45.7 40.1 - 51.0 % [facility] MCV 89.3 79.0 - 92.2 fL [facility] MCH 29.7 25.7 - 32.2 pg [facility] MCHC 33.3 32.3 - 36.5 GM/DL [facility] RDW 12.3 11.6 - 14.4 % [facility] Platelets 196 150 - 450 K/CU MM [facility] MPV 10.6 9.4 - 12.4 fL [facility] nRBC 0 0 - 0 /100 WBC [facility] Specimen Blood Performing Organization Address City/State/[facility] Ph one Number [place] [address] [phone] [place] [address] * ECHOCARDIOGRAM REPORT - SCAN (08/15/2019 9:10 PM [employer]) Narrative Performed At This result has an attachment that is n ot available. 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 Clinical History HLD,PSORIASIS,THYROID DISEASE,HTN Height: 76 inches Weight: 131.54 kg (29 0 lbs) BSA: 2.59 m^2 BMI: 35.3 kg/m^2 HR: 72 bpm BP: 121/74 mmHg Procedure Informed Consent WILLIAM procedure notes Moderate sedation by performing MD dillin g 4 mg IV versed and 100 mcg IV fentanyl. . Summary 1. Hypermobile, redundant interatrial s eptum is noted. IV saline contrast injection demonstrates a PFO (patent fo ramen ovale) at rest and post Valsalva. The amount of PFO shunting ap pears to be moderate. 2. The left ventricle is chamber size i s normal. All of the LV segments are hyperkinetic. Global LV systolic fu nction hyperdynamic. No evidence of left atrial or left atrial appendage th rombus. 3. The right ventricular chamber size a nd systolic function are within normal limits. Previous Study Compared to prior study dated 9, there is no significant change. Signature Findings Rhythm/BPRegular sinus rhythm d uring the exam. Left The left ventricle is chamber size is normal. No evidence of VentricleLV hypertrophy. All of the LV segments are hyperkinetic . Global LV s ystolic function hyperdynamic . LVEF by Appiah's method of d isk assessment is increased (>70%) Left AtriumLA size is normal . No evidence of left atrial or left atrial appendage thrombus. RightThe right ventricu lar chamber size and systolic function are Ventriclewithin normal limits. Right Atrium RA size is normal. Atrial IV saline contrast i njection demonstrates a PFO (patent Septum foramen ovale) at re st and post Valsalva. The amount of PFO shunting ap pears to be moderate . Hypermobile , redundant interatrial septum is noted. Aortic Valve Normal AoV structure and f unction. Mitral Valve Normal MV structure and fu nction. TricuspidTV structure is normal . ValveA trace of tricusp id regurgitation. Unable to e stimate peak systolic PA pressure; inadequate TR velocity si gnal. Pulmonic Normal PV structure an d function by limited views and ValveDoppler. PericardiumNo pericardial effusion is visualized. 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 Clinical History HLD,PSORIASIS,THYROID DISEASE,HTN Height: 76 inches Weight: 131.54 kg (290 lbs) BSA: 2.59 m^2 BMI: 35.3 kg/m^2 HR: 72 bpm BP: 121/74 mmHg Procedure Informed Consent WILLIAM procedure notes Moderate sedation by performing MD using 4 mg IV versed and 100 mcg IV fentanyl. . Summary 1. Hypermobile, redundant interatrial septum is noted. IV saline contrast injection demonstrates a PFO (patent foramen ovale) at rest and post Valsalva. The amount of PFO shunting appears to be moderate. 2. The left ventricle is chamber size is normal. All of the LV segments are hyperkinetic. Global LV systolic function hyperdynamic. No evidence of left atrial or left atrial appendage thrombus. 3. The right ventricular chamber size and systolic function are within normal limits. Previous Study Compared to prior study dated 08/12/2019, there is no significant change. Signature Findings Rhythm/BP Regular sinus rhythm during the exam. Left The left ventricle is chamber size is normal. No evidence of Ventricle LV hypertrophy. All of the LV segments are hyperkinetic . Global LV systolic function hyperdynamic . LVEF by Appiah's method of disk assessment is increased (>70%) Left Atrium LA size is normal . No evidence of left atrial or left atrial appendage thrombus. Right The right ventricular chamber size and systolic function are Ventricle within normal limits. Right Atrium RA size is normal. Atrial IV saline contrast injection demonstrates a PFO (patent Septum foramen ovale) at rest and post Valsalva. The amount of PFO shunting appears to be moderate . Hypermobile, redundant interatrial septum is noted. Aortic Valve Normal AoV structure and function. Mitral Valve Normal MV structure and function. Tricuspid TV structure is normal. Valve A trace of tricuspid regurgitation. Unable to estimate peak systolic PA pressure; inadequate TR velocity signal. Pulmonic Normal PV structure and function by limited views and Valve Doppler. Pericardium No pericardial effusion is visualized. Performing Organization Address City/State/[facility] Ph one Number [facility] * PERIPHERAL VASCULAR REPORT - SCAN (08/14/2019 9:10 PM [employer]) Narrative Performed At This result has an attachment that is n ot available. * TRANSFUSION SERVICE REPORT - SCAN (08/13/2019 5:52 PM [employer]) Narrative Performed At This result has an attachment that is n ot available. * Protein C activity (08/13/2019 4:48 PM [employer]) Protein C Activity 134.0 (H) 70.0 - 130.0 % [facility] Specimen Blood Performing Organization Address City/State/Zipcode Ph one Number [facility] [address] [place] [phone] [facility] * Venous doppler legs bilateral (08/13/2019 4:35 PM [employer]) Ejection Fraction [facility] Specimen Impressions Performed At Right Impression [facility] 1. There is no deep venous obstruction in the common femoral, profunda [facility] femoral, femoral, popliteal, posterior tibial or peroneal veins. 2. There is no superficial venous obstr uction in the great saphenous vein. Left Impression 1. There is no deep venous obstruction in the common femoral, profunda femoral, femoral, popliteal, posterior tibial or peroneal veins. 2. There is no superficial venous obstr uction in the great saphenous vein. Conclusions Summary Venous duplex imaging and compression o f the bilateral lower extremities were performed. The veins were adequate ly visualized. The bilateral venous systems were patent and compressible wi th no evidence of thrombus. The venous Doppler waveforms were phasic wi th respiration . Signature Velocities are measured in cm/s ; Diame ters are measured in cm Narrative Performed At PV LAB - Lower Extremities DVT Study [facility] ECHO HEART [facility] Demographics [facility] Patient NameTORONI VASQUEZ Date of Study 08/13/2019 49 Visit [id number] Date of 1970 Referring [facility] Room Number 2243 Physician Melissajeannie Cake Batter Mixer Rishabh Vaca, RV S Physician Procedure Type of Study: Veins: Lower Extremities DVT Study, RONY OUS DOPPLER LEG, BILATERAL. Indications for Study:Embolic stroke wi th PFO. Patient Status:TODAY. Study Location:Portable. Technical Quality:Adequate visualizatio n. Risk Factors History of Disease + + +------ + !Diagnosis !Date!Comments ! + + +------ + !History/Risk! 9!HTN, HLD, Right MCA stenosis, STROKE, S/P ! !Factors:!!tPA ! + + +------ + Procedure Note Interface, External Ris In - 08/14/2019 2:05 PM [employer] PV LAB - Lower Extremities DVT Study Demographics Patient Name RONI VENTURA Date of Study 08/13/2019 Age 49 Visit Number [id number] Gender Male Accession Number [id number] Date of 1970 Referring [facility] Room Number 2243 Physician Gurijt Cake Batter Mixer Rishabh Coronel Interpreting Rosa Elena Vaca, RVS Physician Procedure Type of Study: Veins: Lower Extremities DVT Study, VENOUS DOPPLER LEG, BILATERAL. Indications for Study:Embolic stroke with PFO. Patient Status:TODAY. Study Location:Portable. Technical Quality:Adequate visualization. Risk Factors History of Disease + + +------- + !Diagnosis !Date !Comments ! + + +------- + !History/Risk !08/13/2019!HTN, HLD, Right MCA stenosis, STROKE, S/P ! !Factors: ! !tPA ! + + +------- + Impressions Right Impression 1. There is no deep venous obstruction i n the common femoral, profunda femoral, femoral, popliteal, posterior tibial or peroneal veins. 2. There is no superficial venous obstru ction in the great saphenous vein. Left Impression 1. There is no deep venous obstruction i n the common femoral, profunda femoral, femoral, popliteal, posterior tibial or peroneal veins. 2. There is no superficial venous obstru ction in the great saphenous vein. Conclusions Summary Venous duplex imaging and compression of the bilateral lower extremities were performed. The veins were adequately visualized. The bilateral venous systems were patent and compressible with no evidence of thrombus. The venous Doppler waveforms were phasic with respiration . Signature Velocities are measured in cm/s ; Diameters are measured in cm Performing Organization Address City/State/Zipcode Ph one Number [facility] * Prothrombin Gene Mutation (08/13/2019 11:11 AM [employer]) PROTHROMBIN GENE ANALYSIS SEE BELOWComment: RESULT: [facility] [id number] variant not detected [facility]PORATED Interpretation SEE BELOW [facility] Comment: INCORPORATED INTERPRETATION: This individual is negative (normal) for the [id number] variant in the Prothrombin/Factor II gene. Increased risk of thrombophilia can be caused by a variety of genetic and non-genetic factors not screened for by this assay. Laboratory testing supervised and results monitored by Iris Solomon, Ph.D., [facility], [facility]. The C05163I mutation [[id number]: g.06702Q>A (c.*97G>A)] in the Prothrombin/Factor II gene is the second most common inherited risk factor for thrombosis occurring in approximately 2% of Caucasians. Presence of the mutation is associated with an elevation of prothrombin levels to about 30% above normal in heterozygotes and to 70% above normal in homozygotes. Prothrombin (L73677V) mutations are detected by amplification of their selected gene regions by polymerase chain reaction (PCR) and fluorescent probe hybridization to the targeted region, followed by melting curve analysis with a real time PCR system. Although rare, false positive or false negative results may occur. All results should be interpreted in context of clinical findings, relevant history, and other laboratory data. Health care providers, please contact your local [facility] genetic counselor or call [phone] ([phone]) for assistance with interpretation of these results. This test was developed and its analytical performance characteristics have been determined by [facility] [place]. It has not been cleared or approved by FDA. This assay has been validated pursuant to the CLIA regulations and is used for clinical purposes. Specimen Blood Narrative Performed At Performing Lab [employer] [facility] [address] [address] [place] [address] Keshia Loomis MD, PhD, MOISE Performing Organization Address [facility] one Number [facility], [address] [place] [address] INCORPORATED [facility] [address] * Protein S antigen, total (08/13/2019 11:11 AM [employer]) Protein S, Total Antigen 104 70 - 140 % normal [facility] Specimen Blood Narrative Performed At Performing Lab [facility] [address] [address] [place] [address] Ksehia Loomis MD, PhD, MOISE Performing Organization Address [facility] one Number [facility], [address] [place] [address] * Protein S activity (08/13/2019 11:11 AM [employer]) Protein S Functional 105 70 - 150 % normal [facility] Comment: INCORPORATED Decreased levels of Protein S activity may be found in patients with hereditary deficiency, warfarin therapy, vitamin k deficiency, liver disease, DIC, or recent thrombosis as well as after surgery. In addition, it may be physiologic in . An elevated Protein S activity is not clinically significant. Only deficiencies are associated with an increased thrombotic risk. Specimen Blood Narrative Performed At Performing Lab [facility] [address] [address] [place] [address] Keshia Loomis MD, PhD, MOISE Performing Organization Address [facility] one Number [facility], [address] [facility] [address] * Protein C antigen, total (08/13/2019 11:11 AM [employer]) Protein C Antigen 143 (H) 70 - 140 % normal [facility] Comment: INCORPORATED Decreased levels of Protein C antigen may be found in congenital deficiency, treatment with oral anticoagulants, liver disease, D.I.C. and post surgery. Specimen Blood Narrative Performed At Performing Lab [facility] [address] [address] [place] [address] Keshia Loomis MD, PhD, MOISE Performing Organization Address [facility] one Number [facility], [address] [facility] [address] [address] * Factor 5 Leiden PCR (thrombotic risk) (08/13/2019 11:11 AM [employer]) Factor V Leiden Mutation SEE BELOWComment: RESULT: [facility] FACTOR V LEIDEN (R506Q) INCORPORATED VARIANT NOT DETECTED Interpretation SEE BELOW [facility] Comment: INC[facility]PORATED INTERPRETATION: This individual is negative (normal) for the Factor V Leiden (R506Q) variant in the Factor V gene. Increased risk of thrombophilia can be caused by a variety of genetic and non-genetic factors not screened for by this assay. Laboratory testing supervised and results monitored by Irina Patino MD, PhD, [facility], [facility]. MUTATION ANALYSIS: The Factor V Leiden (R506Q) mutation [NM 499549.2: c.1601G>A (p.R534Q)] in the Factor V gene is one of the most common causes of inherited thrombophilia. This mutation causes resistance to degradation of activated Factor V protein by activated protein C (APC). The Factor V Leiden (R506Q) mutation is detected by amplification of the selected region of Factor V gene by polymerase chain reaction (PCR) and fluorescent probe hybridization to the targeted region, followed by melting curve analysis with a real time PCR system. Although rare, false positive or false negative results may occur. All results should be interpreted in context of clinical findings, relevant history, and other laboratory data. This test was developed and its analytical performance characteristics have been determined by [facility]. It has not been cleared or approved by FDA. This assay has been validated pursuant to the CLIA regulations and is used for clinical purposes. Health care providers, please contact your local [facility] genetic counselor or call [phone] ([phone]) for assistance with interpretation of these results. Specimen Blood Narrative Performed At Performing Lab [facility] [address] [address] [place] [address] Keshia Loomis MD, PhD, MOISE Performing Organization Address [facility]/Zipcode Ph one Number [facility] [place], [address] [place] [facility] [facility] [address] * Sjogren's antibodies (08/13/2019 4:06 AM [employer]) Anti-Ss-A <1.0 NEG <1.0 NEGATIVE AI [facility] Anti-Ss-B <1.0 NEG <1.0 NEGATIVE AI [facility] Specimen Blood Narrative Performed At Performing Lab [facility] [address] [address] [place] [address] Keshia Loomis MD, PhD, MOISE Performing Organization Address [facility] one Number [facility] [address] [place] [address] * C-Reactive Protein (08/13/2019 4:06 AM [employer]) CRP 0.04 0.00 - 0.50 mg/dL [facility] Specimen Blood Performing Organization Address [facility] one Number [facility] [address] [place] [address] [phone] [place] [address] * Cryoglobulin (08/13/2019 4:06 AM [employer]) CRYOGLOBULIN([facility]) POSITIVE (A) NEGATIVE [facility] CRYOGLOBULIN/SERUM TOTAL SEE BELOW NONE DETECTED % [facility] Comment: INCORPORATED A LOW cryoprecipitate was detected (Cryocrit = <1 %). The Cryocrit is primarily intended for following a patient with previously defined and quantitated cryoglobulins. The cryocrit may consist of cryoglobulins, fibrins, complement, or mixtures of these. If not previously characterized, consider ordering test code 70133, Cryoglobulin Screen with Reflex to Cryoglobulin Profile, Serum. Specimen Blood Narrative Performed At Performing Lab [facility] [address] [address] [place] [address] Keshia Loomis MD, PhD, MOISE Performing Organization Address [facility] Ph one Number [facility] [employer] [place], [address] [place] [facility] [address] * Double-Stranded DNA (dsDNA) Antibody (08/13/2019 4:06 AM [employer]) ds DNA Ab Negative [facility] Specimen Blood Performing Organization Address City/[facility] Ph one Number [facility] [address] [place] [address] [address] [facility] * Rheumatoid factor Ab, reflex to titer (08/13/2019 4:06 AM [employer]) Rheumatoid Factor Negative [facility] Specimen Blood Performing Organization Address [facility] Ph one Number [place] [id number] [place], [place] [phone] [place] [address] * Anti-Neutrophil Cytoplasmic Ab (ANCA) (08/13/2019 4:06 AM [employer]) Proteinase-3 Ab <1.0 <1.0 AI [facility] Comment: INCORPORATED <1.0 AI No Antibody Detected > or = 1.0 AI Antibody Detected Autoantibodies to proteinase-3 (VT-3) are accepted as characteristic for granulomatosis with polyangiitis (GPA, Wei's), and are detectable in 95% of the histologically proven cases. The cytoplasmic IFA pattern, (c-ANCA), is based largely on autoantibody to VT-3 which serves as the primary antigen. These autoantibodies are present in active disease. Myeloperoxidase Ab <1.0 <1.0 AI [facility] Comment: INCORPORATED <1.0 AI No Antibody Detected > or = 1.0 AI Antibody Detected Autoantibodies to myeloperoxidase (MPO) are commonly associated with the following small-vessel vasculitides: microscopic polyangiitis, polyarteritis nodosa, Churg-Kyaw syndrome, necrotizing and crescentic glomerulonephritis and occasionally granulomatosis with polyangiitis (GPA, Wei's). The perinuclear IFA pattern, (p-ANCA) is based largely on autoantibody to myeloperoxidase which serves as the primary antigen. These autoantibodies are present in active disease. Specimen Blood Narrative Performed At Performing Lab [facility] [employer] [facility] [address] [address] [place] [address] Keshia Loomis MD, PhD, MOISE Performing Organization Address City/[facility]/Zipcode Ph one Number [facility], [address] [place] [address] [address] * Antithrombin III (08/13/2019 4:06 AM [employer]) Antithrombin III 87.0 80.0 - 120.0 % [facility] Specimen Blood Performing Organization Address City/[facility] Ph one Number [address] [facility] * Complement Component C3 (08/13/2019 4:06 AM [employer]) C3 Complement 135 82 - 193 mg/dL [facility] Specimen Blood Performing Organization Address [facility] one Number [address] [facility] * Complement Component C4 (08/13/2019 4:06 AM [employer]) C4 Complement 21 15 - 57 mg/dL [facility] Specimen Blood Performing Organization Address [facility] Ph one Number [address] [facility] * Anti-Nuclear Antibody (GAIL) (08/13/2019 4:06 AM [employer]) GAIL Negative Negative [facility] Specimen Blood Narrative Performed At Test performed by IFA method. [facility] Test performed by IFA method. [facility] Performing Organization Address [facility] Ph one Number [address] [facility] * Homocysteine (08/13/2019 4:06 AM [employer]) Homocysteine 9.5 5.1 - 15.4 umol/L [facility] Specimen Blood Performing Organization Address [facility] Ph one Number [address] [facility] CENTER * ECHOCARDIOGRAM REPORT - SCAN (08/12/2019 9:12 PM [employer]) Narrative Performed At This result has an attachment that is n ot available. * MR brain without IV contrast (08/12/2019 9:01 PM [employer]) Specimen Narrative Performed At FINAL REPORT [facility] MRI Brain without contrast Clinical History: Stroke, follow up Technique: MRI of the brain utilizing a xial T2, FLAIR, GRE, DWI; sagittal and coronal T1-weighted images . Comparisons: None Findings: No intracranial hemorrhage. Scattered f oci of restricted diffusion within the left frontal and parietal lo be cortex consistent with acute infarction.. Few bilateral T2 and FLAIR hyperintense white matter foci likely represent chronic wh ite matter microvascular disease. Remote small left cerebellar h emisphere infarction. Ventricles are normal in size and confi guration.There is no hydrocephalus or midline shift. There a re no extra-axial fluid collections. The craniocervical junctio n is preserved. The major intracranial flow-voids appear patent. Mucous retention cyst in the bilateral maxillary sinuses. 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 Air-fluid lev els in the bilateral sphenoid sinuses . Middle ears and mastoid air c ells are clear. Intraorbital contents are unremarkable. No aggressiv e osseous or soft tissue lesions identified. IMPRESSION: Scattered foci of restricted diffusion within the left frontal and parietal lobe cortex consistent with ac lucy infarction.. No intracranial hemorrhage. Air-fluid levels in the bilateral sphen oid sinuses may be related to recent oropharyngeal tubes, correlate c linically.. Signed: Devang Corbett MD Report Verified Date/Time: 22:00:00 Procedure Note Interface, External Ris In - 08/12/2019 10:02 PM [employer] FINAL REPORT MRI Brain without contrast Clinical History: Stroke, follow up Technique: MRI of the brain utilizing axial T2, FLAIR, GRE, DWI; sagittal and coronal T1-weighted images. Comparisons: None Findings: No intracranial hemorrhage. Scattered foci of restricted diffusion within the left frontal and parietal lobe cortex consistent with acute infarction.. Few bilateral T2 and FLAIR hyperintense white matter foci likely represent chronic white matter microvascular disease. Remote small left cerebellar hemisphere infarction. Ventricles are normal in size and configuration. There is no hydrocephalus or midline shift. There are no extra-axial fluid collections. The craniocervical junction is preserved. The major intracranial flow-voids appear patent. Mucous retention cyst in the bilateral maxillary sinuses. 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 Air-fluid levels in the bilateral sphenoid sinuses . Middle ears and mastoid air cells are clear. Intraorbital contents are unremarkable. No aggressive osseous or soft tissue lesions identified. IMPRESSION: Scattered foci of restricted diffusion within the left frontal and parietal lobe cortex consistent with acute infarction.. No intracranial hemorrhage. Air-fluid levels in the bilateral sphenoid sinuses may be related to recent oropharyngeal tubes, correlate clinically.. Signed: Devang Corbett MD Report Verified Date/Time: 08/12/2019 22:00:00 Performing Organization Address City/State/Zipcode Ph one Number [employer] * [place] cerebral 4 vessel angiogram (08/12/2019 4:02 PM [employer]) Specimen Narrative Performed At FINAL REPORT [facility] DATE OF PROCEDURE: 08/12/2019 SURGEON: Rio Zarate M.D. WOOD INSPECTOR: Josr Lombardi MD PREOPERATIVE DIAGNOSIS:Transient is chemic attack, possible vasculitis POST OPERATIVE DIAGNOSIS:Transient ischemic attack, No vascular abnormalities PROCEDURE:Diagnostic Cerebral Angio gram ANESTHESIA: MAC ESTIMATED BLOOD LOSS: Minimal COMPLICATIONS: None INDICATIONS: The patient is a 49 years old Male who presented with transient right sided weakness and spee ch difficulty, subsequently resolved. CT angiogram showed some abno rmalities in the caliber of his intracranial vessels, so diagnostic cerebral angiogram was requested to rule out diagnosis of vasc ulitis. PROCEDURE: Following explanation of the benefits, risks and alternatives for the procedure, informe d consent was obtained from the patient. The risks including but no t limited to stroke, intracranial hemorrhage, vascular injur y to the cervical or femoral vessels and puncture site hematoma were discussed with the patient. A time-out was performed. The right arm w as prepped in the usual sterile fashion using Chloraprep, and s terilely draped. The skin over the right wrist was anesthetized with 1 % lidocaine. Using ultrasound guidance, a single wall puncture of the right radial artery was performed using a micropuncture set and a 5-Fr short sheath was inserted into the right distal radial a rtery and maintained on heparinized flush. Using coaxial technique, a 5-Fr Angled Watts catheter was advanced into the subclavian, back-bled, and flu shed in the usual fashion. Using coaxial technique, the catheter w as advanced into the innominate artery, confirming the locat ion with fluoroscopy, and with the aid of the roadmapping, digital flu oroscopy, and careful guidewire manipulation the left vertebr al artery, left common carotid artery, right common carotid artery, an d right vertebral artery were catheterized. Upon each successive cammy ctive catheterization, digital subtraction angiography using the appro priate rate and volume of contrast in multiple projections was pe rformed. The catheter was removed. The sheath wa s removed and hemostasis was achieved with a TR band. The patient to lerated the procedure well and was taken back to the recovery area in stable condition. FINDINGS: LEFT VERTEBRAL ARTERY (DSA - PA, LATERA L - HEAD) The left vertebral artery is patent wit hout significant stenotic lesion. The left posterior inferior cer ebellar artery fills fully and is normal in course and appearance. The basilar artery shows no significant abnormality. 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 No aneurysms, vascular malformations, or stenotic lesions are noted in the vertebrobasila r system. The venous phase shows patent bilateral transverse and s igmoid sinuses. LEFT COMMON CAROTID ARTERY (DSA - PA, L ATERAL - CERVICAL) The origins of the left internal and ex ternal carotid arteries are widely patent without evidence of ulcer ation or stenosis. LEFT COMMON CAROTID ARTERY (DSA - PA, L ATERAL, OBLIQUE - HEAD) The petrous, cavernous, supraclinoid, a nd terminal segments of the ICA are patent without any stenosis. Th e left anterior cerebral artery fills slowly and is normal in co urse and appearance. There is spontaneous flash filling across the an terior communicating artery. The left middle cerebral artery fills s lowly and is normal in course and appearance. No posterior communicat ing artery is visualized. No vascular malformations, stenosis, or va sospasm is observed. No significant abnormalities are seen in t he capillary and venous phases. The venous phase demonstrates p atent transverse and sigmoid sinuses. The visualized portions of the external carotid artery and its branches are normal without evidenc e of ulceration or stenosis. There is no evidence of arteriovenous s hunting. The venous phase is normal. RIGHT COMMON CAROTID ARTERY (DSA - PA, LATERAL - CERVICAL) The origins of the right internal and e xternal carotid arteries are widely patent without evidence of ulcer ation or stenosis. RIGHT COMMON CAROTID ARTERY (DSA - PA, LATERAL, OBLIQUE - HEAD) The petrous, cavernous, supraclinoid, a nd terminal segments of the ICA are patent without any stenosis. Th ere is physiologic filling of the MCA and CONOR branches and territorie s. The distal branches of the anterior cerebral and middle cerebral a rteries are normal in appearance. No posterior communicating artery is visualized. There is spontaneous flash crossfilling across t he anterior communicating artery. No vascular malformation or art eriovenous shunting is noted. No stenosis or vasospasm is observed. N o significant abnormalities are seen in the capillary and venous ph ases. The venous phase demonstrates patent transverse and sigm oid sinuses. The visualized portions of the external carotid artery and its branches are normal without evidence of ulceration or steno sis. There is no evidence of arteriovenous shunting. The venous phas e is normal. RIGHT VERTEBRAL ARTERY (DSA - PA, LATER AL - HEAD) The right vertebral artery is patent wi thout significant stenotic lesion. The right PICA fills fully and is normal in course and appearance. There is contrast reflux in to the left vertebral artery including PICA. The basilar artery show s no significant abnormality. 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 No aneurysms, vascular malformations, or s tenotic lesions are noted in the vertebrobasilar system. The venous phase shows patent bilateral transverse and sigmoid sinuses. SUPERVISION AND INTERPRETATION: Angiographic study demonstrates: 1. No vascular abnormalities. No immediate technical or clinical comp lications. Signed: Rio Zarate MD Report Verified Date/Time: 0 15:33:22 Reading Location: [facility] [address] [place] [address] Reading Room Procedure Note Interface, External Ris In - 08/14/2019 3:35 PM [employer] FINAL REPORT DATE OF PROCEDURE: 08/12/2019 SURGEON: Rio Zarate M.D. WOOD INSPECTOR: Josr Lombardi MD PREOPERATIVE DIAGNOSIS: Transient ischemic attack, possible vasculitis POST OPERATIVE DIAGNOSIS: Transient ischemic attack, No vascular abnormalities PROCEDURE: Diagnostic Cerebral Angiogram ANESTHESIA: MAC ESTIMATED BLOOD LOSS: Minimal COMPLICATIONS: None INDICATIONS: The patient is a 49 years old Male who presented with transient right sided weakness and speech difficulty, subsequently resolved. CT angiogram showed some abnormalities in the caliber of his intracranial vessels, so diagnostic cerebral angiogram was requested to rule out diagnosis of vasculitis. PROCEDURE: Following explanation of the benefits, risks and alternatives for the procedure, informed consent was obtained from the patient. The risks including but not limited to stroke, intracranial hemorrhage, vascular injury to the cervical or femoral vessels and puncture site hematoma were discussed with the patient. A time-out was performed. The right arm was prepped in the usual sterile fashion using Chloraprep, and sterilely draped. The skin over the right wrist was anesthetized with 1% lidocaine. Using ultrasound guidance, a single wall puncture of the right radial artery was performed using a micropuncture set and a 5-Fr short sheath was inserted into the right distal radial artery and maintained on heparinized flush. Using coaxial technique, a 5-Fr Angled [employer] catheter was advanced into the subclavian, back-bled, and flushed in the usual fashion. Using coaxial technique, the catheter was advanced into the innominate artery, confirming the location with fluoroscopy, and with the aid of the roadmapping, digital fluoroscopy, and careful guidewire manipulation the left vertebral artery, left common carotid artery, right common carotid artery, and right vertebral artery were catheterized. Upon each successive selective catheterization, digital subtraction angiography using the appropriate rate and volume of contrast in multiple projections was performed. The catheter was removed. The sheath was removed and hemostasis was achieved with a TR band. The patient tolerated the procedure well and was taken back to the recovery area in stable condition. FINDINGS: LEFT VERTEBRAL ARTERY (DSA - PA, LATERAL - HEAD) The left vertebral artery is patent without significant stenotic lesion. The left posterior inferior cerebellar artery fills fully and is normal in course and appearance. The basilar artery shows no significant abnormality. 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 No aneurysms, vascular malformations, or stenotic lesions are noted in the vertebrobasilar system. The venous phase shows patent bilateral transverse and sigmoid sinuses. LEFT COMMON CAROTID ARTERY (DSA - PA, LATERAL - CERVICAL) The origins of the left internal and external carotid arteries are widely patent without evidence of ulceration or stenosis. LEFT COMMON CAROTID ARTERY (DSA - PA, LATERAL, OBLIQUE - HEAD) The petrous, cavernous, supraclinoid, and terminal segments of the ICA are patent without any stenosis. The left anterior cerebral artery fills slowly and is normal in course and appearance. There is spontaneous flash filling across the anterior communicating artery. The left middle cerebral artery fills slowly and is normal in course and appearance. No posterior communicating artery is visualized. No vascular malformations, stenosis, or vasospasm is observed. No significant abnormalities are seen in the capillary and venous phases. The venous phase demonstrates patent transverse and sigmoid sinuses. The visualized portions of the external carotid artery and its branches are normal without evidence of ulceration or stenosis. There is no evidence of arteriovenous shunting. The venous phase is normal. RIGHT COMMON CAROTID ARTERY (DSA - PA, LATERAL - CERVICAL) The origins of the right internal and external carotid arteries are widely patent without evidence of ulceration or stenosis. RIGHT COMMON CAROTID ARTERY (DSA - PA, LATERAL, OBLIQUE - HEAD) The petrous, cavernous, supraclinoid, and terminal segments of the ICA are patent without any stenosis. There is physiologic filling of the MCA and CONOR branches and territories. The distal branches of the anterior cerebral and middle cerebral arteries are normal in appearance. No posterior communicating artery is visualized. There is spontaneous flash crossfilling across the anterior communicating artery. No vascular malformation or arteriovenous shunting is noted. No stenosis or vasospasm is observed. No significant abnormalities are seen in the capillary and venous phases. The venous phase demonstrates patent transverse and sigmoid sinuses. The visualized portions of the external carotid artery and its branches are normal without evidence of ulceration or stenosis. There is no evidence of arteriovenous shunting. The venous phase is normal. RIGHT VERTEBRAL ARTERY (DSA - PA, LATERAL - HEAD) The right vertebral artery is patent without significant stenotic lesion. The right PICA fills fully and is normal in course and appearance. There is contrast reflux into the left vertebral artery including PICA. The basilar artery shows no significant abnormality. 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 No aneurysms, vascular malformations, or stenotic lesions are noted in the vertebrobasilar system. The venous phase shows patent bilateral transverse and sigmoid sinuses. SUPERVISION AND INTERPRETATION: Angiographic study demonstrates: 1. No vascular abnormalities. No immediate technical or clinical complications. Signed: Rio Zarate MD Report Verified Date/Time: 08/14/2019 15:33:22 Reading Location: [facility] Y026 Neuro Angio Reading Room Performing Organization Address City/State/Zipcode Ph one Number GE [facility]IS * ABORH, manual (08/12/2019 10:10 AM [employer]) ABO Grouping A [facility] Rh Factor NEG [facility] Specimen Blood Performing Organization Address City/[facility]/Zipcode Ph one Number [facility] [address] [place] [address] MEDICAL CENTER * 2D Echo W/Doppler(CW/PW/Color) (08/12/2019 10:08 AM [employer]) Ejection Fraction [facility] ECHO [facility] Specimen Narrative Performed At Transthoracic Echocardiography Report (TTE) [facility] ECH O HEARTLAB Demographics [facility] Patient Name RONI VENTURA e of Study 08/12/2019 [id number] GenderMale Visit Number [id number] Greg boyle [id number] Room Number 7402 Number Date of Birth1970 Referring Physician Walter Cagle Age49 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 Clinical History HGB 14.8 HCT 44.2 % DEFINITY HTN, HLD, HYPOTHYROID Contrast Medium: Bubble Study. Height: 76 inches Weight: 131.54 kg (29 0 lbs) BSA: 2.59 m^2 BMI: 35.3 kg/m^2 HR: 81 bpm BP: 129/96 mmHg Summary LV endocardium is adequately visualized with IV ultrasound enhancing agent. The left ventricle is chamber si ze (by vol index) is normal (male - LVED vol - 34-74ml/m2). No evidence of LV hypertrophy. All of the LV segments are hyperkinetic . Global LV s ystolic function hyperdynamic . LVEF by Appiah's method of disk assess ment is increased (>70%) . Normal diastolic function. TV structure is normal. A trace of tricuspid regurgitation. Unable to estimate peak systolic PA pre ssure; inadequate TR velocity signal. The estimated RA pressure by IVC dynami cs 11-15mmHg . IV saline contrast injection demonstrat es a PFO (patent foramen ovale) at rest and post Valsalva . The amount of PFO shunting appears to b e moderate . Previous Study No prior studies available for comparis on. Signature Findings Technical Quality: Technically adequate exam. Left Ventricle LV endoc ardium is adequately visualized with IV ultrasound enhancing agent. The left ventricle is chamber size (by vol index) is normal (male - LVED vol - 34-74ml/m2). No evidence of LV hypertrophy. All of the LV segments are hyperkinetic . Global LV systolic function hyperdynamic . LVEF by Appiah's method of disk assessment is increased (>70%) . Normal diastolic function. Left AtriumLA s ize is normal (16-34 ml/m2) . Right VentricleThe righ t ventricular chamber size and systolic function are within normal limits. Right Atrium RA siz e is normal. Atrial SeptumIV treva ine contrast injection demostrates a PFO (patent foramen ovale) at rest and post Valsalva . The amount of PFO shunting appears to be moderate . Aortic Valve Normal AoV structure and function. Mitral Valve Normal MV structure and function. Tricuspid ValveTV struc ture is normal. A trace of tricuspid regurgitation. Unable to estimate peak systolic PA pressure; inadequate TR velocity signal. Pulmonic Valve Normal P V structure and function by limited views and Doppler. Aorta Aortic root size (Sinus of Valsalva diameter) is borderline dilated. 4.0 cm PericardiumNo p ericardial effusion is visualized. IVC/SVC/PA/PV/PleuralThe estimated RA pressure by IVC dynamics 11-15mmHg . Chambers/Structures Left Atrium LA Volume: 87.54 ml LA Area: 26.42 cm^2 LA Vol. Index: 34 ml/m^2 Left Ventricle LVIDd: 5.85 cm LV Septum Diastolic: 0.97 cm LV PW Diastolic: 1.03 cm LVEDV Appiah's:148.55 ml LVESV Appiah's:38.12 ml LVEF Appiah's: 74.3 % LVEDVI: 57 ml/m^2 LVESVI: 15 ml/m^2 LVOT Diameter: 2.27 cm Aorta Ao Root S of Kailee.: 4.05 cm Doppler/Quantitative Measurements Mitral Valve MV Peak E-Wave: 0.81 m/s MV Peak A-Wave: 0.74 m/s P1/2t: 66.9 msec E/A Ratio: 1.09 Peak Gradient: 2.64 mmHg Deceleration Time: 209.9 msec MV Area (PHT): 3.29 cm^2 MV Mj. Peak: Tissue Doppler E' Lateral Velocity: 0.09 m/s E/E': 9.35 Aortic Valve Peak Velocity: 1.59 m/s Mean Velocity: 1.17 m/s Peak Gradient: 10.15 mmHg Mean Gradient: 5.9 mmHg AV Area (continuity): 3.64 cm^2 AV VTI: 29.79 cm AV DVI: 0.9 LVOT Peak Velocity: 1.32 m/s Peak Gradient: 6.97 mmHg Mean Velocity: 0.93 m/s Mean Gradient: 3.87 mmHg LVOT Diameter: 2.27 cm LVOT VTI: 26.82 cm LVOT Area: 4.05 cm^2 LVOT SV:108.49 ml LVOT CO: 8.79 l/min LVOT CI: 3.39 l/min/m^2 Procedure Note Interface, External Ris In - 08/12/2019 5:35 PM [employer] Transthoracic Echocardiography Report (TTE) Demographics Patient Name RONI VENTURA Date of Study 08/12/2019 Gender Male Visit Number [id number] Race Room Number 7402 Number Date of 1970 Referring Physician Walter Cagle Age 49 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 Clinical History HGB 14.8 HCT 44.2 % DEFINITY HTN, HLD, HYPOTHYROID Contrast Medium: Bubble Study. Height: 76 inches Weight: 131.54 kg (290 lbs) BSA: 2.59 m^2 BMI: 35.3 kg/m^2 HR: 81 bpm BP: 129/96 mmHg Summary LV endocardium is adequately visualized with IV ultrasound enhancing agent. The left ventricle is chamber size (by vol index) is normal (male - LVED vol - 34-74ml/m2). No evidence of LV hypertrophy. All of the LV segments are hyperkinetic . Global LV systolic function hyperdynamic . LVEF by Appiah's method of disk assessment is increased (>70%) . Normal diastolic function. TV structure is normal. A trace of tricuspid regurgitation. Unable to estimate peak systolic PA pressure; inadequate TR velocity signal. The estimated RA pressure by IVC dynamics 11-15mmHg . IV saline contrast injection demonstrates a PFO (patent foramen ovale) at rest and post Valsalva . The amount of PFO shunting appears to be moderate . Previous Study No prior studies available for comparison. Signature Findings Technical Quality: Technically adequate exam. Left Ventricle LV endocardium is adequately visualized with IV ultrasound enhancing agent. The left ventricle is chamber size (by vol index) is normal (male - LVED vol - 34-74ml/m2). No evidence of LV hypertrophy. All of the LV segments are hyperkinetic . Global LV systolic function hyperdynamic . LVEF by Appiah's method of disk assessment is increased (>70%) . Normal diastolic function. Left Atrium LA size is normal (16-34 ml/m2) . Right Ventricle The right ventricular chamber size and systolic function are within normal limits. Right Atrium RA size is normal. Atrial Septum IV saline contrast injection demostrates a PFO (patent foramen ovale) at rest and post Valsalva . The amount of PFO shunting appears to be moderate . Aortic Valve Normal AoV structure and function. Mitral Valve Normal MV structure and function. Tricuspid Valve TV structure is normal. A trace of tricuspid regurgitation. Unable to estimate peak systolic PA pressure; inadequate TR velocity signal. Pulmonic Valve Normal PV structure and function by limited views and Doppler. Aorta Aortic root size (Sinus of Valsalva diameter) is borderline dilated. 4.0 cm Pericardium No pericardial effusion is visualized. IVC/SVC/PA/PV/Pleural The estimated RA pressure by IVC dynamics 11-15mmHg . Chambers/Structures Left Atrium LA Volume: 87.54 ml LA Area: 26.42 cm^2 LA Vol. Index: 34 ml/m^2 Left Ventricle LVIDd: 5.85 cm LV Septum Diastolic: 0.97 cm LV PW Diastolic: 1.03 cm LVEDV Appiah's:148.55 ml LVESV Appiah's:38.12 ml LVEF Appiah's: 74.3 % LVEDVI: 57 ml/m^2 LVESVI: 15 ml/m^2 LVOT Diameter: 2.27 cm Aorta Ao Root S of Kailee.: 4.05 cm Doppler/Quantitative Measurements Mitral Valve MV Peak E-Wave: 0.81 m/s MV Peak A-Wave: 0.74 m/s P1/2t: 66.9 msec E/A Ratio: 1.09 Peak Gradient: 2.64 mmHg Deceleration Time: 209.9 msec MV Area (PHT): 3.29 cm^2 MV Mj. Peak: Tissue Doppler E' Lateral Velocity: 0.09 m/s E/E': 9.35 Aortic Valve Peak Velocity: 1.59 m/s Mean Velocity: 1.17 m/s Peak Gradient: 10.15 mmHg Mean Gradient: 5.9 mmHg AV Area (continuity): 3.64 cm^2 AV VTI: 29.79 cm AV DVI: 0.9 LVOT Peak Velocity: 1.32 m/s Peak Gradient: 6.97 mmHg Mean Velocity: 0.93 m/s Mean Gradient: 3.87 mmHg LVOT Diameter: 2.27 cm LVOT VTI: 26.82 cm LVOT Area: 4.05 cm^2 LVOT SV:108.49 ml LVOT CO: 8.79 l/min LVOT CI: 3.39 l/min/m^2 Performing Organization Address [facility] one Number [facility] ECHO HEARTLAB MKCKESSON CPACS * Type and screen (08/12/2019 9:43 AM [employer]) Ab Scrn NEGATIVEComment: PEG [facility] ABO Grouping A [facility] Rh Factor NEG [facility] Specimen Blood Performing Organization Address [facility] one Number [address] [address] [facility] * Vitamin B12 and Folate (08/12/2019 12:44 AM [employer]) Vitamin B12 427 213 - 816 pg/mL [facility] Folate 16.9 >=7.0 ng/mL [facility] Specimen Blood Performing Organization Address [facility] one Number [address] [address] [facility] * Troponin I (08/12/2019 12:44 AM [employer]) Only the most recent of 2 results within the time period is included. Troponin I 0.01 0.00 - 0.03 ng/mL [facility] Specimen Blood Narrative Performed At Troponin I (TnI) levels must be interpreted in the co ntext of the presenting [facility] symptoms and the clinical findings. Elevated TnI leve ls indicate myocardial [facility] damage, but are not specific for ischem ic heart disease. Elevated TnI levels are seen in patients with other cardiac con ditions (including myocarditis and congestive heart failure), and slight T nI elevations occur in patients with other conditions, including sepsis, kandace al failure, acidosis, acute neurological disease, and persistent tachyarrhythmia . Fasting Performing Organization Address [facility] one Number [place] [address] [facility] * Hemoglobin A1c (08/12/2019 12:44 AM [employer]) Only the most recent of 2 results within the time period is included. Hemoglobin A1C 5.2 4.3 - 6.1 % [facility] Specimen Blood Performing Organization Address [facility] one Number [place] [address] [facility] * Fasting lipid panel (08/12/2019 12:44 AM [employer]) Only the most recent of 2 results within the time period is included. Triglycerides 126 mg/dL [facility] Cholesterol 183 mg/dL [facility] HDL 64 mg/dL [facility] LDL Calculated 94 mg/dL [facility] Specimen Blood Narrative Performed At Triglyceride Reference Range: [facility] Low Risk <150 [facility] R [id number] High Risk 200-499 Very High Risk>=500 Cholesterol Reference Range: Low Risk <200 [id number] High Risk>240 HDL Cholesterol Reference Range: Low Risk >=60 High Risk <40 LDL Cholesterol Reference Range: Optimal<100 Near [id number] [id number] Qlkm164-160 Very High >=190 Fasting Performing Organization Address [facility] one Number [place] [address] [facility] * XR chest 1 view portable / bedside (08/11/2019 9:12 PM [employer]) Specimen Narrative Performed At FINAL REPORT [facility] History: CVA. Comparison: None. Findings: A single view of the chest is submitted . The cardiomediastinal contours are unre markable. There is no focal consolidation, pneumo thorax, large pleural effusion or evidence of overt pulmonary edema. There is no acute bony abnormality. Impression: No acute abnormality. Signed: Ralf Taylor MD Report Verified Date/Time: 9 21:32:20 Procedure Note Interface, External Ris In - 08/11/2019 9:34 PM [employer] FINAL REPORT History: CVA. Comparison: None. Findings: A single view of the chest is submitted. The cardiomediastinal contours are unremarkable. There is no focal consolidation, pneumothorax, large pleural effusion or evidence of overt pulmonary edema. There is no acute bony abnormality. Impression: No acute abnormality. Signed: Ralf Taylor MD Report Verified Date/Time: 08/11/2019 21:32:20 Performing Organization Address [facility]/State[facility] one Number GE RIS * RPR (08/11/2019 9:11 PM [employer]) RPR Nonreactive Nonreactive [facility] Specimen Blood Performing Organization Address [facility] Ph one Number [address] [address] [facility] after 01/14/2019 Insurance Payer Benefit Subscriber ID Type Phone Address Plan / Group BLUE CROSS/BLUE SHIELD BCBS PPO xxxxxxxxxxxx PPO [address] [place] [address] CHOICE [phone] Advance Directives For more information, please contact: [address] [phone] Date Inactivated Comments Code Status Date Activated 10/04/2019 5:34 PM Full Code 10/03/2019 9:12 AM This code status was determined by: Patient 08/16/2019 6:04 PM Full Code 08/15/2019 12:59 PM This code status was determined by: Patient 08/15/2019 12:59 PM Full Code 08/11/2019 8:56 PM This code status was determined by: Patient
--- OUTSIDE RECORDS SUMMARY | 2020-01-15 14:43 | XMS REPORT | Summary of Care ---
Author Author RONI Mcgee LVN [facility] Unknown Address [facility] Phone Unavailable Care Team Providers Care Bit Sharpener Operator Name Role Phone ERICKA Romo, TEREZA Unavailable Unavailable MONSE GARY [place], JOAQUIM MCCANN Unavailable Unavailable PATRIZIA PERDOMO MD Unavailable Unavailable MONSE Allison, JOAQUIM Unavailable Unavailable [...] smoker Vital Signs Date Test Result Details [id number] BP Systolic 123 mm[Hg] Status: Comments: Lo [...] Observations Planned Goals not documented Interventions Provided Medication Changes* Fenofibrate 145 MG Oral Tablet - Renew * Levoxyl 175 MCG Oral Tablet - Renew Instructions Name Dates Details Instructions not documented Encounters Appointment; TEREZA BARNETT P.A. Encounter Diagnosis: Problem not documented On: 22-Mar-2018 15:00 Appointment; TEREZA BARNETT P.A. Encounter Diagnosis: Problem not documented On: 22-Aug-2018 15:00 Appointment; TEREZA BARNETT P.A. Encounter Diagnosis: Problem not documented On: 20-Mar-2019 15:00 Appointment; PALMA CSAAREZ P.A. Encounter Diagnosis: Problem not documented On: 04-May-2019 9:15 Appointment; TEREZA BARNETT P.A. Encounter Diagnosis: Problem not documented On: 22-Aug-2019 10:45
--- OUTSIDE RECORDS SUMMARY | 2020-01-15 14:43 | XMS REPORT | Summary of Care ---
Author RONI Sarabia Organization Unknown Address Unknown Phone Unavailable Care Team Providers Care Energy Analyst Name Role Phone TEREZA BARAJAS Unavailable Unavailable MONSE GARY [place], JOAQUIM MCCANN Unavailable Unavailable PATRIZIA PERDOMO MD Unavailable Unavailable MONSE Allison, JOAQUIM Unavailable Unavailable TEREZA BARNETT PA-C Unavailable Unavailable Unavailable Unavailable Functional Status Name [...] G51.0) Status: Resolved Procedures Procedure Dates Details [[facility]] T3, TOTAL Date: 09-Oct-2019 [[facility]] T4, FREE Date: 09-Oct-2019 [QL] TSH, 3RD GENERATION W/REFLEX TO FT4 Date: [...] (finding) Vital Signs Date Test Result Details [id number] Physical Findings 5 Status: Comments: PH Q-9 Adult Depression Screening Results Date Description Value Details Results not documented Plan of Care Name Dates Details Planned Observations Planned Goals not documented Planned Encounters Dermatology Referral Interventions Provided Labs/Procedures/Imaging* [QLH] T3, TOTAL; To Be Done: 09 Oct 2019 * [QL] T4, FREE; To Be Done: 09 Oct 2019 * [QL] TSH, 3RD GENERATION W/REFLEX TO FT4; To Be Done: 09 Oct 2019 Medications/Immunizations [...]
--- OUTSIDE RECORDS SUMMARY | 2020-01-15 14:43 | XMS REPORT | Continuity of Care Document ---
Author Author [employer] RONI Pérez Organization [employer] Address Unknown Phone Unavailable Care Team Providers Care Pellet Press Operator Name Role Phone [employer] Unavailable Un available Problems Problem Status Onset Date Classification Date Reported Comments Source SPEECH Active 08/30/2019 [facility] [place] STROKE Active 08/27/2019 [facility] QUIQUE BILLING Active 08/11/2019 [facility] Hypothyroidism Active 09/24/2013 [facility] Hyperlipidemia Active 09/24/2013 [facility] Arthralgia Active 09/24/2013 [facility] Medications Medication Details Route Status Patient Instructions Ordering Provider Order Date Source Ibuprofen 800 MG Oral Tablet ; Start Date: 09/20/2013; End Date: 10/20/2013 (Active) Active 09/20/2013 [facility] Synthroid 200 MCG Oral Tablet ; Start Date: 09/02/2013; End Date: 03/19/2014 (Active) Active 09/02/2013 [facility] Synthroid 25 MCG Oral Tablet ; Start Date: 09/02/2013; End Date: (Active) Active 09/02/2013 [facility] Fenofibrate 145 MG Oral Tablet ; Start Date: 09/02/2013; End Date: 03/19/2014 (Active) Active 09/02/2013 [facility] Crestor 10 MG Oral Tablet ; St art Date: 09/02/2013; End Date: 03/19/2014 (Active) Active 09/02/2013 [facility] Allergies, Adverse Reactions, Alerts Substance Category Reaction Severity Reaction type Status Date Reported Comments Source Not Known [facility] Levothyroxine Sodium TABS drug allergy drug aller gy Active [facility] Immunizations No Data Provided for This Section Results No Data Provided for This Section Pathology Reports No Data Provided for This Section Diagnostic Reports No Data Provided for This Section Consultation Notes No Data Provided for This Section Discharge Summaries No Data Provided for This Section History and Physicals No Data Provided for This Section Vital Signs No Data Provided for This Section Encounters Location Location Details Encounter Type Encounter Number Reason For Visit Attending Provider ADM Date DC Date Status Source AUDIT [id number] 09/02/2013 09/02/2013 [facility] AUDIT [id number] 09/24/2013 09/24/2013 [facility] [place] OP Therapy Patients [id number] TEREZA BARNETT 08/30/2019 09/29/2019 [facility] [place] [facility] [id number] TEREZA BROWNOS 10/10/2019 11/09/2019 [facility] [place] Procedures No Data Provided for This Section Assessment and Plan No Data Provided for This Section Plan of Care Plan of Care Date Source [QL] TSH, 3RD GENERATION W/REFLEX TO FT 4 09/20/2013 Routine 09/24/2013 [facility] Social History Social History Date Source Social History TypeResponse 11/09/2019 [facility] Marital History - Currently (Active) Alcohol Use Comments: one drink a month (Active) Never A Smoker (Active) No History of Drug Use (Denied) 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 09/24/2013 [facility] Advance Directives Advance Dir ectives No Advance Directives available. 09/02/2013 [facility] Functional Status No Data Provided for This Section
--- OUTSIDE RECORDS SUMMARY | 2020-01-15 14:43 | XMS REPORT | Summary of Care ---
Author RONI Sarabia Organization Unknown Address Unknown Phone Unavailable Care Team Providers Care Center Consultant Name Role Phone TEREZA BARAJAS Unavailable Unavailable MONSE GARY [place], JOAQUIM MCCANN Unavailable Unavailable PATRIZIA PERDOMO MD [...] being sure of dose. * Refills: 0 M.A. Active Levothyroxine Sodium 175 MCG Oral Tablet [...] MG Oral Tablet Chewable * Refills: 0 M.A. Active Clopidogrel Bisulfate 75 MG Oral Tablet TAKE 1 TABLET DAILY. * Refills: 0 M.A. 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 40-4.50 Plan of Care Name Dates Details Planned Observations Planned Goals not documented Interventions Provided Discussion/Summary* Thyroid is stable // no change in meds months Instructions Name Dates Details Instructions not documented [...]
--- OUTSIDE RECORDS SUMMARY | 2020-01-15 14:43 | XMS REPORT ---
Author Author RONI BEAVER Organization Unknown Address Unknown Phone Care Team Providers Care Coupon Collection Clerk Name Role Phone SD BRAYDEN PP Unavailable Reason for Referral No Reason for Referral was given. History of Present Illness No HPI available. Problems * Normal Routine History And Physical Adult (V70.0); (Active) * Hyperlipidemia (272.4); (Active) * Hypothyroidism (244.9); (Active) * Arthralgia (719.40); (Active) Medication * Synthroid 200 MCG Oral Tablet; TAKE 1 TABLET DAILY.; Start Date: 09/02/2013; End Date: 03/19/2014 (Active) * Synthroid 25 MCG Oral Tablet; TAKE 1 TABLET DAILY; Start Date: 09/02/2013; End Date: (Active) * Fenofibrate 145 MG Oral Tablet; TAKE 1 TABLET DAILY.; Start Date: 09/02/2013; End Date: 03/19/2014 (Active) * Crestor 10 MG Oral Tablet; TAKE 1 TABLET DAILY; Start Date: 09/02/2013; End Date: 03/19/2014 (Active) * Ibuprofen 800 MG Oral Tablet; TAKE 1 TABLET 3 TIMES DAILY WITH FOOD NEEDED. ; Start Date: 09/20/2013; End Date: 10/20/2013 (Active) Allergies and Adverse Reactions * Levothyroxine Sodium TABS (Active) Past Medical History * No Significant Medical History Family History * Paternal history of Acute Myocardial Infarction (V17.3); (Active) * Maternal history of Acute Myocardial Infarction (V17.3); (Active) * Paternal history of Diabetes Mellitus (V18.0); (Active) * Maternal history of Hypertension (V17.49); (Active) Social History * Marital History - Currently (Active) * Alcohol Use Comments: one drink a month (Active) * Never A Smoker (Active) * No History of Drug Use (Denied) * 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 Encounters * AUDIT 09/24/2013
--- OUTSIDE RECORDS SUMMARY | 2020-01-15 14:43 | XMS REPORT | Summary of Care ---
Author RONI Sarabia Organization Unknown Address Unknown Phone Unavailable Care Team Providers Care Mail Agent Name Role Phone TEREZA BARAJAS Unavailable Unavailable MONSE GARY [place], JOAQUIM MCCANN Unavailable Unavailable PATRIZIA PERDOMO MD Unavailable Unavailable MONSE Allison, JOAQUIM Unavailable Unavailable TEREZA BARNETT PA-C Unavailable Unavailable Unavailable Unavailable Functional Status Name Dates Details Functional status health issues are not documented Status: Name Dates Details Cognitive status health issues are not d ocumented Status: Problems Name Dates Details GAIL positive (795.79, R76.8) Status: Active Psoriasis (696.1, L40.9) Status: Active Paresthesia of skin (782.0, R20.2) Status: Active Malaise (780.79, R53.81) Status: Active Vitamin D deficiency (268.9, E55.9) Status: Active Hyperlipidemia (272.4, E78.5) Status: Active Elevated bilirubin (277.4, R17) Status: Active Back pain (724.5, M54.9) Status: Active Stroke (434.91, I63.9) Status: Active Word finding difficulty (V40.1, R47.89) Status: Active Speech block (784.59, R47.89) Status: Active Speech disorder (784.59, R47.9) Status: Active Hypothyroidism (244.9, E03.9) Status: Active Nevus, non-neoplastic (448.1, I78.1) Status: Active Need for Tdap vaccination (V06.1, Z23) Status: Active BMI 37.0-37.9, adult (V85.37, Z68.37) Status: Active Morbid obesity (278.01, E66.01) Status: Active Medications Name Dates Details Fenofibrate 145 MG Oral Tablet TAKE 1 TABLET BY MOUTH EVERY DAY. Quantity: 90 ERICKA Feliz., TEREZA * Start : 02-Sep-2013 Active Humira [...] of Morgan's palsy (351.0, G51.0) Status: Resolved History of BMI 35.0-35.9,adult (V85.35, Z68.35) Status: Resolved Procedures Procedure Dates Details [QLH] [...] (finding) Vital Signs Date Test Result Details [id number]-Frz-[id number] Physical Findings 5 Status: Comments: PH Q-9 Adult Depression Screening Results Date Description Value Details [id number] [QLH] T3, TOTAL T3, TOTAL 85 ng/dl (Normal) Range: 76-181 47-Fen-[id number] [QLH] T4, FREE T4, FREE 1.5 ng/dl (Normal) Range: 0.8-1 .8 59-[id number] [QLH] TSH, 3RD GENERATION Comments: REP ORT COMMENT:FASTING:NO TSH 3.43 {MIU/L} (Normal) Range: 0. 40-4.50 Plan of Care Name Dates Details Planned Observations Planned Goals not documented Interventions Provided Labs/Procedures/Imaging* [[facility]] TSH, 3RD GENERATION W/REFLEX TO FT4; To [...]
--- OUTSIDE RECORDS SUMMARY | 2020-01-15 14:43 | XMS REPORT | Summary of Care ---
Author Author RONI Mcgee LVN Organization Unknown Address [facility] Phone Unavailable Care Team Providers Care Wort Extractor Name Role Phone ERICKA Romo, TEREZA Unavailable Unavailable Alicia Mcgee LVN Unavailable Unavailable MONSE GARY [place], JOAQUIM MCCANN Unavailable Unavailable LEANNE GARY, PATRIZIA [...] 145 MG Oral Tablet TAKE 1 TABLET DAILY Quantity: 90 BARNETT P.A., TEREZA * Start [...] P.A., TEREZA * Start : 18-Jul-2019 Active Aspirin 81 MG Oral Tablet Chewable * Refills: 0 Active Atorvastatin Calcium 80 MG Oral Tablet TAKE 1 TABLET AT BEDTIME. * Quantity: 90 Refills: 0 BARNETT P.A., TEREZA Active Allergies and Adverse Reactions Name Dates [...] smoker Vital Signs Date Test Result Details [id number] BP Systolic 123 mm[Hg] Status: Comments: Lo [...] Details Planned Observations Planned Goals not documented Instructions Name Dates Details Instructions not documented Encounters Appointment; DANTE SINGH NP Encounter Diagnosis: Problem not documented On: 08-Sep-2017 15:45 Appointment; TEREZA BARNETT P.A. Encounter Diagnosis: Problem [...]
--- OUTSIDE RECORDS SUMMARY | 2020-01-15 14:43 | XMS REPORT | Summary of Care ---
Author RONI De La Cruz M.A. Organization Unknown Address Unknown Phone Unavailable Care Team Providers Care Plug Machine Operator Name Role Phone BARNETT P.A., TEREZA Unavailable Unavailable Priya Goldberg, Nathaly Unavailable Unavailable MONSE GARY [place], JOAQUIM MCCANN Unavailable Unavailable LEANNE GARY, PATRIZIA Walter Unavailable Unavailable MONSE Allison, JOAQUIM Pyle Unavailable BARNETT PA-C, TEREZA Unavailable Unavailable Unavailable Unavailable Functional Status [...] (finding) Vital Signs Date Test Result Details [id number] Physical Findings 5 Status: Comments: PH Q-9 Adult Depression Screening Results Date Description Value Details [id number] [QLH] T3, TOTAL T3, TOTAL 85 ng/dl (Normal) Range: 76-181 96-[id number] [QL] T4, FREE T4, FREE 1.5 ng/dl (Normal) Range: 0.8-1 .8 [id number] [[facility]] TSH, 3RD GENERATION Comments: REP ORT COMMENT:FASTING:NO [...]
--- OUTSIDE RECORDS SUMMARY | 2020-01-15 14:43 | XMS REPORT | Summary of Care ---
Author Author [facility] Organization [facility] Address Unknown Phone Unavailable Care Team Providers Care Chair Car Driver Name Role Phone PCP Unavailable Reason for Visit * Reason Comments Cerebrovascular Accident Encounter Details Care Team Description Date Type Department Rosa Elena Saleh, KAY-ACNP [address] [facility] [address] [place] [address] Cerebrovascular Accident 09/12/2019 Office Visit [facility] Cardiology [address], [address] [place] [address] Allergies No Known Allergiesdocumented as of this encounter (statuses as of 09/13/2019) Medications End Date Status Medication Sig Dispensed Refills Start Date 08/16/2020 Active aspirin EC 81 MG tablet Take 81 mg by 0 mouth. 0 08/15/2020 Active atorvastatin (LIPITOR) 80 Take 80 mg by 0 202 MG tablet mouth. 0 Active fenofibrate (TRICOR) 145 Take 145 mg 0 MG tablet by mouth. Active levothyroxine (SYNTHROID) Daily 0 200 MCG tablet Active Adalimumab (HUMIRA SC) Inject into 0 the skin every 14 days. documented as of this encounter (statuses as of 09/13/2019) Active Problems Problem Noted Date Cryptogenic stroke (HCCode) 09/13/2019 HTN (hypertension) 09/13/2019 HLD (hyperlipidemia) 09/13/2019 Psoriasis 09/13/2019 PFO (patent foramen ovale) 09/13/2019 documented as of this encounter (statuses as of 09/13/2019) Social History Date Tobacco Use Types Packs/Day Years Used Never Smoker Smokeless Tobacco: Never Used Sex Assigned at Date Recorded Not on file Industry Job Start Date Occupation Not on file Not on file Not on file Travel End Travel History Travel Start No recent travel history available. documented as of this encounter Last Filed Vital Signs Reading Time Taken Comments Vital Sign 140/98 09/12/2019 2:03 PM [employer] Blood Pressure 63 09/12/2019 1:02 PM [employer] Pulse - - Temperature 15 09/12/2019 1:02 PM [employer] Respiratory Rate 99% 09/12/2019 1:02 PM [employer] Oxygen Saturation - - Inhaled Oxygen Concentration 144.7 kg (319 lb) 09/12/2019 1:02 PM [employer] Weight 193 cm (6' 4") 09/12/2019 1:02 PM [employer] Height 38.83 09/12/2019 1:02 PM [employer] Body Mass Index documented in this encounter Patient Instructions * Patient Instructions* Rosa Elena Saleh AG-ЕЛЕНА - 09/12/2019 1:00 PM [employer] Thank you for choosing the [facility]. 1. Please let us know what we can do better. Please provide comments on the surv ey you will receive. We value your feedback. 2. Continue same medications 3. PFO closure - scheduled for October 03, 2019 4. Call office if new symptoms occur Tell Us About Your Experience You may receive an email or letter from [facility] via our partn er, Summer Moura. This is a survey about your experience as a patient at [facility]. ? Please take time to fill out the survey as your feedback is important to us. ? If you would like to recognize one of our employees for great service, you can either write this on the [employer] survey or call our customer service repres entative at . Call Us You are also welcome to call us at if you would like to speak wit h a Vascular Technologist Sonographer. Thank you for helping us to improve our service. We look forward to hearing from you. Your team today: ? Eric Appiah MD - Rivet Sticker [phone] ? Rosa Elena Saleh, THERAPY ADMINISTRATIVE ASSISTANT - Nurse practitioner [phone] ? Jennifer Hubbard CMA - Jewelry Salesperson [phone] ? Becca Espinoza, MPH - Home Worker [phone] Our Fax Number is [phone] [employer] documented in this encounter Progress Notes * Rosa Elena Saleh AG-ACNP - 09/12/2019 1:00 PM [employer] Patient name: Barry Ventura : 1970 Today's date: 09/12/19 CHIEF COMPLAINT: PFO closure consult HISTORY OF PRESENT ILLNESS: Patient is a 49 year old male with past medical history significant for Barry Ventura is a 49 y.o. old male with medical history significant for CVA s/p tPA 08/11/19, HTN, HLD, moderate PFO presents for follow-up of ILR for cryptoge darron stroke. Went to OSH with R sided weakness consistent with CVA, tPA was administered and he was transferred to [facility] for further management. Imaging showed R frontopariet al multifocal stroke concerning for cardioembolic source. Echo did not demonstra te LV or LA thrombus, but a moderate PFO was noted on TTE and WILLIAM. No evidence o f arrhythmias on telemetry. Underwent ILR prior to discharge. ILR monitored by Dr. Chowdary - no AF detected. Pt was referred to us for evaluatio n for PFO closure. Given PFO with moderate shunting and cryptogenic stroke, pt is a good candidate for PFO closure. BP was 132/88 this AM at home. Will monitor at home, call if consistently >140 systolic or >90 diastolic. In speech therapy for residual expressive aphasia Has some L arm tingling Otherwise feels well Denies palpitations, chest pain PAST MEDICAL HISTORY: 1) Cryptogenic stroke - s/p tPA 08/11/19 - Residual expressive aphasia, L arm tingling - PFO with moderate shunting on WILLIAM 2) Hypertension 3) Hyperlipidemia 4) Psoriasis PAST SURGICAL HISTORY: CURRENT MEDICATIONS: Current Outpatient Medications Medication Sig Dispense Refill Adalimumab (HUMIRA SC) Inject into the skin every 14 days. aspirin EC 81 MG tablet Take 81 mg by mouth. atorvastatin (LIPITOR) 80 MG tablet Take 80 mg by mouth. fenofibrate (TRICOR) 145 MG tablet Take 145 mg by mouth. levothyroxine (SYNTHROID) 200 MCG tablet Daily No current facility-administered medications for this visit. 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 HENT: Negative. Eyes: Negative. Respiratory: Negative for shortness of breath. Cardiovascular: Negative Gastrointestinal: Negative for abdominal pain. Genitourinary: Negative. Musculoskeletal: Negative. Skin: Negative. Neurological: Negative. Endo/Heme/Allergies: Negative. Psychiatric/Behavioral: Negative. PHYSICAL EXAMINATION: BP (!) 150/98 | Pulse 63 | Resp 15 | Ht 6' 4" (1.93 m) | Wt (!) 319 lb (144. 7 kg) | SpO2 99% | BMI 38.83 kg/m General Appearance: Alert, cooperative, no distress, appears stated age Head: Normocephalic, without obvious abnormality, atraumatic Eyes: PERRL, conjunctiva/corneas clear, EOM's intact, fundi benign, both eyes Nose: Nares normal, septum midline, mucosa normal, no drainage or sinus tendern ess Throat: Lips, mucosa, and tongue normal; teeth and gums normal Neck: Supple, symmetrical, trachea midline, no adenopathy; thyroid: no enlargement/tenderness/nodules; no carotid bruit or JVD Back: Symmetric, no curvature, ROM normal, no CVA tenderness Lungs: Clear to auscultation bilaterally, respirations unlabored Chest Wall: No tenderness or deformity Heart: Regular rate and rhythm, S1 and S2 normal, no murmur, rub or gallop Abdomen: Soft, non-tender, bowel sounds active all four quadrants, no masses, no organomegaly Extremities: Extremities normal, atraumatic, no cyanosis or edema Pulses: 2+ and symmetric all extremities Skin: Skin color, texture, turgor normal, no rashes or lesions Psychiatry : Normal mood and Affect Lymph nodes: Cervical, supraclavicular, and axillary nodes normal Neurologic: CNII-XII intact, normal strength, sensation and reflexes throughout PERTINENT TEST RESULTS: ECHO 08/12/2019 LV endocardium is adequately visualized with IV ultrasound enhancing agent. The left ventricle is chamber size (by vol index) is normal (male - LVED vol - 34-74ml/m2). No evidence of LV hypertrophy. All of the LV segments are hyperkinetic . Global LV systolic function hyperdynamic . LVEF by Papiah's method of disk assessment is increased (>70%) [...] of PFO shunting appears to be moderate. Previous Study No prior studies available for comparison. WILLIAM 08/15/2019 Summary 1. Hypermobile, redundant interatrial septum is [...] dated 08/12/2019, there is no significant change. ASSESSMENT: Cryptogenic CVA s/p ILR 07/2019 no AF on ILR Residual expressive aphasia, L arm tingling on ASA PFO Moderate shunting on TTE 08/12/19, WILLIAM 08/15/2019 HTN HLD On statin, fibrate Psoriasis On Humira PLAN: PFO closure - scheduled for 10/03/2019 Risk factor modification BP control Statin - dose recently increased Fibrate ASA Procedure discussed with pt, Discussed DAPT post PFO closure Activity restrictions after procedure as pt has a physical job - will need exten amanda of FMLA All questions answered Rosa Elena Saleh RN, AGAP- Nurse Practitioner/Instructor Office Office direct Nurse Practitioner to Eric Appiah MD [facility]/[place], [place] [address] [employer] documented in this encounter Plan of Treatment Care Team Description Date Type Specialty Lyn Chowdary MD [address] [facility] [address] [place] [address] [phone] 11/27/2019 Office Visit Cardiology Health Maintenance Due Date Last Done Comments TETANUS SHOT (ADULT) 1987 BMI FOLLOW UP PLAN 1990 HIV SCREENING 1990 FLU VACCINE > 6 MONTHS 03/14/2019 documented as of this encounter Results Not on filedocumented in this encounter Visit Diagnoses Diagnosis PFO (patent foramen ovale) - Primary Ostium secundum type atrial septal defe ct Hyperlipidemia, unspecified hyperlipide tanya type Essential hypertension Unspecified essential hypertension Cryptogenic stroke (HCCode) Unspecified cerebral artery occlusion w ith cerebral infarction documented in this encounter Insurance Type Payer Benefit Subscriber ID Effective Phone Address Plan / Dates Group PPO BLUE CROSS BLUE SHIELD PPO/EPO - xxxxxxxxxxxx 2008-P [address] [employer] [id number] [place] [phone] documented as of this encounter
--- OUTSIDE RECORDS SUMMARY | 2020-01-15 14:43 | XMS REPORT | Summary of Care ---
Author Author [facility] Address Unknown Phone Unavailable Encounter HQ Jose_javi(CASSIUS) [id number] Date(s): 08/30/19 - 09/28/19 [facility] Discharge Disposition: Home or Self Care Attending [...]
--- OUTSIDE RECORDS SUMMARY | 2020-01-15 14:43 | XMS REPORT | Continuity of Care Document ---
Author Author [facility] t Organization [facility] Address [address] [place] [address] Phone Unavailable Care Team Providers Care Shower Screen Installer Name Role Phone NONSTAFF PCP Unavailable TEREZA BARNETT Attphys Unavailable Rosa Elena Curtis Attphys [phone] TEREZA BARNETT, P.A. Attphys Unavailable VERONA GARCIA Attphys Unavailable HIRZALLAH, I. MOHAMMAD Attphys Unavailable Scott ESPARZA Attphys Unavailable PALMA CASAREZ P.A. Attphys Unavailable DANTE SINGH NP Attphys Unavailable GARCIA, VERONA Admphys Unavailable HIRZALLAH, I. MOHAMMAD Admphys Unavailable Payers Payer Name Policy Type Policy Number Effective Date Expiration Date S mark [employer] [place] Ppo [id number] 2008 00:00:00 [facility] Problems Condition Name Condition Details Condition Category Status Onset Date Resolution Date Last Treatment Date Treating Clinician Comments Source SPEECH SPEE CH Active 08/30/2019 [facility] [place] Diagnosis Active 2019-08-30 08:00:00 2019-10-10 09:45:00 [facility] STROKE STRO KE Active 08/27/2019 [facility] [place] Diagnosis Active 2019-08-27 08:00:00 2019-08-30 10:59:00 [facility] QUIQUE BILLING RUDDY DILLON BILLMARÍA Active 08/11/2019 [facility] Diagnosis Active 2019-08-11 00:00:00 2019-07 20:22:00 [facility] 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 [facility] History of BMI 35.0-35.9,adult History of BMI 35.0-35.9,adult Probl em Resolved [facility] Malaise Malaise Problem Active [facility] Morbid obesity Morbid obesity Problem Active [facility] BMI 37.0-37.9, adult BMI 37.0-37.9, adult Problem Active [facility] Back pain Back pain Problem Active [facility] Hyperlipidemia Hyperlipidemia Problem Active [facility] Hypothyroidism Hypothyroidism Problem Active [facility] Speech block Speech block Problem Active [facility] Nevus, non-neoplastic Nevus, non-neoplastic Problem Active [facility] Speech disorder Speech disorder Problem Active [facility] Stroke Stroke Problem Active [facility] Vitamin D deficiency Vitamin D deficiency Problem Active [facility] Psoriasis Psoriasis Problem Active [facility] GAIL positive GAIL positive Problem Active [facility] Need for Tdap vaccination Need for Tdap vaccination Problem Active [facility] Paresthesia of skin Paresthesia of skin Problem Active [facility] Elevated bilirubin Elevated bilirubin Problem Active [facility] Hypothyroidism Hypo thyroidism Active 09/24/2013 [facility] Problem Active 2013-09-24 21:56:18 [facility] Hyperlipidemia Hype rlipidemia Active 09/24/2013 [facility] Problem Active 2013-09-24 21:56:18 [facility] Arthralgia Arth ralgia Active 09/24/2013 [facility] Problem Active 2013-09-24 21:56:18 [facility] Allergies, Adverse Reactions, Alerts Allergy Name Allergy Type Status Severity Reaction(s) Onset Date Inacti ve Date Treating Clinician Comments Source Levothyroxine sodium Allergy to Substance Active 2019-08-11 00:00:00 [facility] Not Known Not Known Active Tavares toro [facility] Levothyroxine Sodium TABS Levothyroxine Sodium TABS Active [facility] Family History Family Member Diagnosis Comments Start Date Stop Date Source Mother Family history of Acute Myocardial Infarction [facility] Mother Family history of Hypertension [facility] Father Family history of Acute Myocardial Infarction [facility] Father Family history of Diabetes Mellitus [facility] Social History Social Habit Start Date Stop Date Quantity Comments Source Social History 2013-09-24 21:56:18 2013-09-24 21:56:18 [facility] Smoking Status Start Date Stop Date Source [facility] smoked tobacco (finding[facility] Medications Ordered Medication Name Filled Medication Name Start Date Stop Da te Current Medication? Ordering Clinician Indication Dosage Frequency Signature (SIG) Comments Components Source Duexis 800-26.6 MG Oral Tablet Duexis 800-26.6 MG Oral Table t 2019-07-18 00:00:00 Yes TEREZA BARNETT P.A. 1 TAKE 1 TABLET BED TIME [facility] Levoxyl 175 MCG Oral Tablet Levoxyl 175 MCG Oral Tablet 2018-07-09 00:00:00 Yes TEREZA BARNETT P.A. TAKE 1 TABLET BY MOUTH EVERY DAY. [facility] Levothyroxine Sodium 175 MCG Oral Tablet Levothyroxine Sodium 175 MCG Oral Tablet 2018-04-04 00:00:00 Yes TEREZA BARNETT P.A. 1 Q D TAKE 1 TABLET DAILY [facility] Ibuprofen 800 MG Oral Tablet 2013-09-20 06:00:00 Yes ; Start Date: 09/20/2013; End Date: 10/20/2013 (Active) [facility] Synthroid 200 MCG Oral Tablet 2013-09-02 06:00:00 Yes ; Start Date: 09/02/2013; End Date: 03/19/2014 (Active) [facility] Synthroid 25 MCG Oral Tablet 2013-09-02 06:00:00 Yes ; Start Date: 09/02/2013; End Date: (Active) [facility] Fenofibrate 145 MG Oral Tablet 2013-09-02 06:00:00 Yes ; Start Date: 09/02/2013; End Date: 03/19/2014 (Active) [facility] Crestor 10 MG Oral Tablet 2013-09-02 06:00:00 Yes ; Start Date: 09/02/2013; End Date: 03/19/2014 (Active) [facility] Fenofibrate 145 MG Oral Tablet Fenofibrate 145 MG Oral Table t 2013-09-02 00:00:00 Yes TEREZA BARNETT P.A. 1 QD TAKE 1 TABLET EDGARD LY. [facility] Fenofibrate (Tricor) 145 Mg Tab Fenofibrate (Tricor) 145 Mg Tab Yes 1 Daily [facility] Levothyroxine Sodium (Levoxyl) 200 Mcg Tablet Levothyr oxine Sodium (Levoxyl) 200 Mcg Tablet Yes 250 Daily [facility] Rosuvastatin Calcium (Crestor) 10 Mg Tab Rosuvastatin Calcium (Crestor) 10 Mg Tab Yes 1 Daily [facility] Humira Pen KIT Humira Pen KIT Yes INJECT ML Every other week pt states not being sure of dose. [facility] Atorvastatin Calcium 80 MG Oral Tablet Atorvastatin Calcium 80 M G Oral Tablet Yes TEREZA BARNETT P.A. 1 TAKE 1 TABLET AT BEDT DAFNE. [facility] Aspirin 81 MG Oral Tablet Chewable Aspirin 81 MG Oral Tablet Chewable Yes [facility] Clopidogrel Bisulfate 75 MG Oral Tablet Clopidogrel Bisulfat e 75 MG Oral Tablet Yes 1 QD TAKE 1 TABLET DAILY. [facility] Immunizations Ordered Immunization Name Filled Immunization Name Date Status Comments Source Tdap (Boostrix) 2019-10-09 10:47:00 Completed [facility] Tdap 2008-07-14 00:00:00 Completed [facility] Vital Signs Vital Name Observation Time Observation Value Comments Source BP Systolic 2019-08-22 10:30:00 123 mm[Hg] Location: [place] on: Sitting [facility] BP Diastolic 2019-08-22 10:30:00 82 mm[Hg] Location: [place]: Sitting [facility] Height 2019-08-22 10:30:00 76 [in_us] [facility] Weight 2019-08-22 10:30:00 311 [lb_av] [facility] Body Mass Index Calculated 2019-08-22 10:30:00 37.86 kg/m2 [facility] Temperature 2019-08-22 10:30:00 98 [degF] Method: Temporal [facility] Heart Rate 2019-08-22 10:30:00 66 /min [facility] Respiration Rate 2019-08-22 10:30:00 16 /min [facility] BP Systolic 2019-03-20 15:03:00 119 mm[Hg] Location: [place] on: Sitting [facility] BP Diastolic 2019-03-20 15:03:00 81 mm[Hg] Location: LUE; [place] on: Sitting [facility] Height 2019-03-20 15:03:00 76 [in_us] [facility] Weight 2019-03-20 15:03:00 295.125 [lb_av] [facility] Body Mass Index Calculated 2019-03-20 15:03:00 35.92 kg/m2 [facility] Temperature 2019-03-20 15:03:00 98 [degF] Method: Temporal [facility] Heart Rate 2019-03-20 15:03:00 67 /min [facility] Respiration Rate 2019-03-20 15:03:00 16 /min [facility] Procedures Procedure Date / Time Performed Performing Clinician Sour e [QL] T3, TOTAL 2019-10-09 00:00:00 [place] [facility] [QL] T4, FREE 2019-10-09 00:00:00 [place] [facility] [QL] TSH, 3RD GENERATION W/REFLEX TO FT4 2019-10-09 00:00:00 [facility] [QL] TSH, 3RD GENERATION W/REFLEX TO FT4 2019-10-09 00:00:00 [facility] Computed tomography of brain without radiopaque contrast 201 04-25-29 00:00:00 TAD SHARP [facility] Computed tomography angiography of brain 2019-08-11 00:00:00 PIYUSH RODRIGUEZ [facility] [[facility]] HEPATIC FUNCTION PANEL 2019-05-05 00:00:00 [facility] [QL] CBC (INCLUDES DIFF/PLT) 2019-05-04 00:00:00 [facility] [QL] CMP W/EGFR 2019-05-04 00:00:00 [facility] [[facility]] CULTURE, URINE, ROUTINE 2019-05-04 00:00:00 [facility] [Q] CULTURE, STOOL, ERNESTO/SHIG/CAMPY AND SHIGA TOXINS EI A W/RFL E.COLI O157 CULT 2019-05-04 00:00:00 [facility] [QL] OVA AND PARASITES, STOOL CONC/PERM SMEAR, 3 SPEC 2019-04-15 1 00:00:00 [facility] [Q] Clostridium difficile Toxin/GDH with reflex to PCR 2019-04-15 1 00:00:00 [facility] [QLH] TSH, 3RD GENERATION W/REFLEX TO FT4 2019-03-20 00:00:00 [facility] Plan of Care Planned Activity Planned Date Details Comments Source Diagnostic Test Pending 2019-05-19 00:00:00 [QL] HEPATIC FU NCTION PANEL [code = [[facility]] HEPATIC FUNCTION PANEL] [facility] Future Scheduled Test Plan of Care [code = 42041-3] [facility] Encounters Start Date/Time End Date/Time Encounter Type Admission Type [facility] Care Department Encounter ID Source 2019-10-10 15:43:00 2019-11-09 04:59:00 OP Therapy Patients [facility] [id number] [facility] 2019-10-10 09:43:00 2019-11-08 23:59:00 Outpatient TEREZA BARNETT [id number] 2019-10-24 14:50:17 2019-10-24 15:54:00 Office Visit Rosa Elena Jasmine ra [facility] [id number] 2019-10-09 10:00:00 2019-10-09 10:00:00 Appointment; TEREZA BARNETT P.A. CAMPOS, BERTHA, P.A. [facility], [address] [id number] [facility] 2019-08-30 16:40:00 2019-09-29 05:59:00 OP Therapy Patients MH[facility]ALT [facility] [id number] [facility] 2019-08-30 10:40:00 2019-09-28 23:59:00 Outpatient TEREZA BARNETT [id number] 2019-09-12 12:53:23 2019-09-12 16:42:22 Office Visit Rosa Elena Jasmine ra [facility] [id number] 2019-08-22 10:45:00 2019-08-22 10:45:00 Appointment; TEREZA BARNETT P.A. CAMPOS, BERTHA PHeather ROSALES [facility] [id number] [facility] 2019-08-11 17:13:00 2019-08-11 19:25:00 Departed Emergency Room 1 PIYUSH ESPARZA [facility] [id number] [facility] 2019-08-11 00:00:00 2019-08-11 00:00:00 Outpatient [facility] [id number] [facility] 2019-05-04 09:15:00 2019-05-04 09:15:00 Appointment; ELLIOT CASAREZ P.A. SPOONER, JOSEPH, P.A. UTP [facility] [id number] [facility] 2019-03-20 15:00:00 2019-03-20 15:00:00 Appointment; TEREZA BARNETT P.A. CAMPOS, BERTHA PHeather ROSALES UTP [id number] [facility] 2018-08-22 15:00:00 2018-08-22 15:00:00 Appointment; TEREZA BARNETT P.A. CAMPOS, BERTHA PHeather ROSALES UTP [id number] [facility] 2018-03-22 15:00:00 2018-03-22 15:00:00 Appointment; TEREZA BARNETT P.A. CAMPOS, BERTHA, PKirstenAKirsten ROSALES UTP [id number] [facility] 2017-09-08 15:45:00 2017-09-08 15:45:00 Appointment; DANTE SINGH NP TRAN, THUY, NP [facility] UTP [id number] [facility] 2013-09-24 15:56:18 2013-09-24 21:56:18 AUDIT [facility] [id number] [facility] 2013-09-24 15:56:18 2013-09-24 15:56:18 Outpatient MHIEA LT [facility] [id number] 2013-09-02 16:36:38 2013-09-02 22:36:37 [facility] [id number] [facility] 2013-09-02 16:36:38 2013-09-02 16:36:37 [facility] [id number] Results Test Description Test Time Test Comments Results Result Comments Source [[facility]] T3, TOTAL 2019-10-09 10:58:00 Test Item T3, TOTAL (test code = T3, TOTAL) 85 ng/dl 76-181 N [facility]] T4, [id number] 10:58:00* Test Item Value Reference Range Interpretation Comments T4, FREE (test code = T4, FREE) 1.5 ng/dl 0.8-1.8 N [facility]] TSH, 3RD [id number] 10:58:00* Test Item Value Reference Range Interpretation Comments TSH; Normal (test code = 32086-8) 3.43 {MIU/L} 0.40-4.50 N [facility]icians[facility], [id number] 07:32:00* Test Item Value Reference Range Interpretation Comments FREE T4 (BEAKER) (test code = 655) 1.09 ng/dL 0.70-1.48 Speech/Language Therapist ID - BSTSH/FREE T4 IF [id number] 06:13:00* Test Item Value Reference Range Interpretation Comments THYROID STIMULATING HORMONE (BEAKER) (test code = 772) 6.11 uIU/mL 0.35-4.94 H Speech/Language Therapist ID - ANNE [id number] 05:49:00* Test Item Value Reference Range Interpretation Comments PHOSPHORUS (BEAKER) (test code = 604) 3.3 mg/dL 2.3-4.7 Speech/Language Therapist ID - ANNE [id number] 05:49:00* Test Item Value Reference Range Interpretation Comments MAGNESIUM (BEAKER) (test code = 627) 1.9 mg/dL 1.6-2.6 Speech/Language Therapist ID - ANNE MBASIC METABOLIC [id number] 05:49:00* Test Item Value Reference Range Interpretation Comments SODIUM (BEAKER) (test code = 381) 142 meq/L 136-145 POTASSIUM (BEAKER) (test code = 379) 3.8 meq/L 3.5-5.1 CHLORIDE (BEAKER) (test code = 382) 111 meq/L 98-107 H CO2 (BEAKER) (test code = 355) 24 meq/L 22-29 BLOOD UREA NITROGEN (BEAKER) (test code = 354) 16 mg/dL 7-21 CREATININE (BEAKER) (test code = 358) 1.06 mg/dL 0.57-1.25 GLUCOSE RANDOM (BEAKER) (test code = 652) 93 mg/dL 70-105 CALCIUM (BEAKER) (test code = 697) 8.9 mg/dL 8.4-10.2 EGFR (BEAKER) (test code = 1092) 75 mL/min/1.73 sq m ESTIMATED GFR IS NOT ACCURATE CREATININE CLEARANCE IN PREDICTING GLOMERULAR FILTRATION RATE. ESTIMATED GFR IS NOT APPLICABLE FOR DIALYSIS PATIENTS. Speech/Language Therapist ID - ANNE MCALCIUM, [id number] 05:22:00* Test Item Value Reference Range Interpretation Comments CALCIUM IONIZED (BEAKER) (test code = 698) 1.14 mmol/L 1.12-1.27 PH, BLOOD (BEAKER) (test code = 1810) 7.41 CBC W/PLT COUNT & AUTO [id number] 05:11:00* Test Item Value Reference Range Interpretation Comments WHITE BLOOD CELL COUNT (BEAKER) (test code = 775) 7.9 K/ L 3.5- 10.5 RED BLOOD CELL COUNT (BEAKER) (test code = 761) 4.60 M/ L 4.63-6 .08 L HEMOGLOBIN (BEAKER) (test code = 410) 13.7 GM/DL 13.7-17.5 HEMATOCRIT (BEAKER) (test code = 411) 42.2 % 40.1-51.0 MEAN CORPUSCULAR VOLUME (BEAKER) (test code = 753) 91.7 fL 79. 0-92.2 MEAN CORPUSCULAR HEMOGLOBIN (BEAKER) (test code = 751) 29.8 pg 25.7-32.2 MEAN CORPUSCULAR HEMOGLOBIN CONC (BEAKER) (test code = 752) 32.5 GM/DL 32.3-36.5 RED CELL DISTRIBUTION WIDTH (BEAKER) (test code = 412) 12.6 % 11.6-14.4 PLATELET COUNT (BEAKER) (test code = 756) 187 K/CU MM 150-450 MEAN PLATELET VOLUME (BEAKER) (test code = 754) 10.8 fL 9.4-12 .4 NUCLEATED RED BLOOD CELLS (BEAKER) (test code = 413) 0 /100 WBC 0 -0 NEUTROPHILS RELATIVE PERCENT (BEAKER) (test code = 429) 63 % LYMPHOCYTES RELATIVE PERCENT (BEAKER) (test code = 430) 23 % MONOCYTES RELATIVE PERCENT (BEAKER) (test code = 431) 9 % EOSINOPHILS RELATIVE PERCENT (BEAKER) (test code = 432) 4 % BASOPHILS RELATIVE PERCENT (BEAKER) (test code = 437) 1 % NEUTROPHILS ABSOLUTE COUNT (BEAKER) (test code = 670) 4.99 K/ L 1.78-5.38 LYMPHOCYTES ABSOLUTE COUNT (BEAKER) (test code = 414) 1.81 K/ L 1.32-3.57 MONOCYTES ABSOLUTE COUNT (BEAKER) (test code = 415) 0.73 K/ L 0. 30-0.82 EOSINOPHILS ABSOLUTE COUNT (BEAKER) (test code = 416) 0.30 K/ L 0.04-0.54 BASOPHILS ABSOLUTE COUNT (BEAKER) (test code = 417) 0.06 K/ L 0. 01-0.08 IMMATURE GRANULOCYTES-RELATIVE PERCENT (BEAKER) (test code = 2801) 0 % 0-1 [id number] 16:19:00* Test Item Value Reference Range Interpretation Comments ACTIVATED CLOTTING TIME (BEAKER) (test code = 441) 252 sec : 74-137 seconds, Baseline: TESTED AT [address], [address]: Speech/Language Therapist/Tourist Information Officer ID = [id number] for MICHAEL WILSON BASIC METABOLIC [id number] 10:01:00* Test Item Value Reference Range Interpretation Comments SODIUM (BEAKER) (test code = 381) 143 meq/L 136-145 POTASSIUM (BEAKER) (test code = 379) 4.0 meq/L 3.5-5.1 CHLORIDE (BEAKER) (test code = 382) 109 meq/L 98-107 H CO2 (BEAKER) (test code = 355) 28 meq/L 22-29 BLOOD UREA NITROGEN (BEAKER) (test code = 354) 16 mg/dL 7-21 CREATININE (BEAKER) (test code = 358) 1.14 mg/dL 0.57-1.25 GLUCOSE RANDOM (BEAKER) (test code = 652) 96 mg/dL 70-105 CALCIUM (BEAKER) (test code = 697) 9.4 mg/dL 8.4-10.2 EGFR (BEAKER) (test code = 1092) 69 mL/min/1.73 sq m ESTIMATED GFR IS NOT ACCURATE CREATININE CLEARANCE IN PREDICTING GLOMERULAR FILTRATION RATE. ESTIMATED GFR IS NOT APPLICABLE FOR DIALYSIS PATIENTS. Speech/Language Therapist ID - PIAYA LPT/[id number] 09:45:00* Test Item Value Reference Range Interpretation Comments PROTIME (BEAKER) (test code = 759) 13.1 seconds 11.9-14.2 INR (BEAKER) (test code = 370) 1.0 <=5.9 PARTIAL THROMBOPLASTIN TIME (BEAKER) (test code = 760) 25.7 seconds 22.5-36.0 Effective 01/09/2019: PT Reference Range ChangeNew: 11.9-14.2 Previous: 11.7-14. 7RECOMMENDED COUMADIN/WARFARIN INR THERAPY RANGESSTANDARD DOSE: 2.0-3.0 Include s: PROPHYLAXIS for venous thrombosis, systemic embolization; TREATMENT for venou s thrombosis and/or pulmonary embolus.HIGH RISK: Target INR is 2.5-3.5 for patie nts wiht mechanical heart valves.CBC W/PLT COUNT & AUTO [id number] 09:38:00* Test Item Value Reference Range Interpretation Comments WHITE BLOOD CELL COUNT (BEAKER) (test code = 775) 5.3 K/ L 3.5- 10.5 RED BLOOD CELL COUNT (BEAKER) (test code = 761) 5.03 M/ L 4.63-6 .08 HEMOGLOBIN (BEAKER) (test code = 410) 15.1 GM/DL 13.7-17.5 HEMATOCRIT (BEAKER) (test code = 411) 46.3 % 40.1-51.0 MEAN CORPUSCULAR VOLUME (BEAKER) (test code = 753) 92.0 fL 79. 0-92.2 MEAN CORPUSCULAR HEMOGLOBIN (BEAKER) (test code = 751) 30.0 pg 25.7-32.2 MEAN CORPUSCULAR HEMOGLOBIN CONC (BEAKER) (test code = 752) 32.6 GM/DL 32.3-36.5 RED CELL DISTRIBUTION WIDTH (BEAKER) (test code = 412) 12.6 % 11.6-14.4 PLATELET COUNT (BEAKER) (test code = 756) 196 K/CU MM 150-450 MEAN PLATELET VOLUME (BEAKER) (test code = 754) 10.6 fL 9.4-12 .4 NUCLEATED RED BLOOD CELLS (BEAKER) (test code = 413) 0 /100 WBC 0 -0 NEUTROPHILS RELATIVE PERCENT (BEAKER) (test code = 429) 52 % LYMPHOCYTES RELATIVE PERCENT (BEAKER) (test code = 430) 35 % MONOCYTES RELATIVE PERCENT (BEAKER) (test code = 431) 8 % EOSINOPHILS RELATIVE PERCENT (BEAKER) (test code = 432) 4 % BASOPHILS RELATIVE PERCENT (BEAKER) (test code = 437) 1 % NEUTROPHILS ABSOLUTE COUNT (BEAKER) (test code = 670) 2.75 K/ L 1.78-5.38 LYMPHOCYTES ABSOLUTE COUNT (BEAKER) (test code = 414) 1.85 K/ L 1.32-3.57 MONOCYTES ABSOLUTE COUNT (BEAKER) (test code = 415) 0.42 K/ L 0. 30-0.82 EOSINOPHILS ABSOLUTE COUNT (BEAKER) (test code = 416) 0.21 K/ L 0.04-0.54 BASOPHILS ABSOLUTE COUNT (BEAKER) (test code = 417) 0.06 K/ L 0. 01-0.08 IMMATURE GRANULOCYTES-RELATIVE PERCENT (BEAKER) (test code = 2801) 0 % 0-1 PROTEIN C [id number] 09:09:00* Test Item Value Reference Range Interpretation Comments PROTEIN C ACTIVITY (BEAKER) (test code = 582) 134.0 % 70.0-130 .0 H CBC (HEMOGRAM ONLY)2019-08-16 05:03:00* Test Item Value Reference Range Interpretation Comments WHITE BLOOD CELL COUNT (BEAKER) (test code = 775) 7.2 K/ L 3.5- 10.5 RED BLOOD CELL COUNT (BEAKER) (test code = 761) 5.12 M/ L 4.63-6 .08 HEMOGLOBIN (BEAKER) (test code = 410) 15.2 GM/DL 13.7-17.5 HEMATOCRIT (BEAKER) (test code = 411) 45.7 % 40.1-51.0 MEAN CORPUSCULAR VOLUME (BEAKER) (test code = 753) 89.3 fL 79. 0-92.2 MEAN CORPUSCULAR HEMOGLOBIN (BEAKER) (test code = 751) 29.7 pg 25.7-32.2 MEAN CORPUSCULAR HEMOGLOBIN CONC (BEAKER) (test code = 752) 33.3 GM/DL 32.3-36.5 RED CELL DISTRIBUTION WIDTH (BEAKER) (test code = 412) 12.3 % 11.6-14.4 PLATELET COUNT (BEAKER) (test code = 756) 196 K/CU MM 150-450 MEAN PLATELET VOLUME (BEAKER) (test code = 754) 10.6 fL 9.4-12 .4 NUCLEATED RED BLOOD CELLS (BEAKER) (test code = 413) 0 /100 WBC 0 -0 BASIC METABOLIC [id number] 07:12:00* Test Item Value Reference Range Interpretation Comments SODIUM (BEAKER) (test code = 381) 140 meq/L 136-145 POTASSIUM (BEAKER) (test code = 379) 3.7 meq/L 3.5-5.1 Specimen slightly hemolyzed CHLORIDE (BEAKER) (test code = 382) 107 meq/L 98-107 CO2 (BEAKER) (test code = 355) 23 meq/L 22-29 BLOOD UREA NITROGEN (BEAKER) (test code = 354) 17 mg/dL 7-21 CREATININE (BEAKER) (test code = 358) 0.92 mg/dL 0.57-1.25 Specimen slightly hemolyzed GLUCOSE RANDOM (BEAKER) (test code = 652) 78 mg/dL 70-105 CALCIUM (BEAKER) (test code = 697) 9.3 mg/dL 8.4-10.2 EGFR (BEAKER) (test code = 1092) 88 mL/min/1.73 sq m ESTIMATED GFR IS NOT ACCURATE CREATININE CLEARANCE IN PREDICTING GLOMERULAR FILTRATION RATE. ESTIMATED GFR IS NOT APPLICABLE FOR DIALYSIS PATIENTS. CBC (HEMOGRAM ONLY)2019-08-15 06:56:00* Test Item Value Reference Range Interpretation Comments WHITE BLOOD CELL COUNT (BEAKER) (test code = 775) 7.0 K/ L 3.5- 10.5 RED BLOOD CELL COUNT (BEAKER) (test code = 761) 4.97 M/ L 4.63-6 .08 HEMOGLOBIN (BEAKER) (test code = 410) 14.9 GM/DL 13.7-17.5 HEMATOCRIT (BEAKER) (test code = 411) 44.5 % 40.1-51.0 MEAN CORPUSCULAR VOLUME (BEAKER) (test code = 753) 89.5 fL 79. 0-92.2 MEAN CORPUSCULAR HEMOGLOBIN (BEAKER) (test code = 751) 30.0 pg 25.7-32.2 MEAN CORPUSCULAR HEMOGLOBIN CONC (BEAKER) (test code = 752) 33.5 GM/DL 32.3-36.5 RED CELL DISTRIBUTION WIDTH (BEAKER) (test code = 412) 12.6 % 11.6-14.4 PLATELET COUNT (BEAKER) (test code = 756) 193 K/CU MM 150-450 MEAN PLATELET VOLUME (BEAKER) (test code = 754) 11.8 fL 9.4-12 .4 NUCLEATED RED BLOOD CELLS (BEAKER) (test code = 413) 0 /100 WBC 0 -0 NV, ANGIOGRAM, [id number] 15:33:00Reason for exam:->stroke, stenosis FINAL REPORT DATE OF PROCEDURE: 08/12/2019 SURGEON: James Zarate M.D. CEMETERY KEEPER: Josr Lombardi MD PREOPERATIVE DIAGNOSIS: Transient ischemic attack, possible vasculitis POST OPERATIVE DIAGNOSIS: Transient ische sharee attack, No vascular abnormalities PROCEDURE: Diagnostic Cerebral Angiogram ANESTHESIA: MAC ESTIMATED BLOOD LOSS: Minimal COMPLICATIONS: None INDICATIONS: T he patient is a 49 years old Male who presented with transient right sided weakn ess and speech difficulty, subsequently resolved. CT angiogram showed some abnor malities in the caliber of his intracranial vessels, so diagnostic cerebral judi ogram was requested to rule out diagnosis of vasculitis. PROCEDURE: Following ex planation of the benefits, risks and alternatives for the procedure, informed co nsent was obtained from the patient. The risks including but not limited to stro ke, intracranial hemorrhage, vascular injury to the cervical or femoral vessels and puncture site hematoma were discussed with the patient. A time-out was perfo rmed. The right arm was prepped in the usual sterile fashion using Chloraprep, a nd sterilely draped. The skin over the right wrist was anesthetized with 1% lido mary kay. Using ultrasound guidance, a single wall puncture of the right radial art enzo was performed using a micropuncture set and a 5-Fr short sheath was inserted into the right distal radial artery and maintained on heparinized flush. Using coaxial technique, a 5-Fr Angled Watts catheter was advanced into the subclavi an, back-bled, and flushed in the usual fashion. Using coaxial technique, the ca theter was advanced into the innominate artery, confirming the location with flu oroscopy, and with the aid of the roadmapping, digital fluoroscopy, and careful guidewire manipulation the left vertebral artery, left common carotid artery, ri ght common carotid artery, and right vertebral artery were catheterized. Upon ea ch successive selective catheterization, digital subtraction angiography using t he appropriate rate and volume of contrast in multiple projections was performed . The catheter was removed. The sheath was removed and hemostasis was achieved w ith a TR band. The patient tolerated the procedure well and was taken back to th e recovery area in stable condition. FINDINGS: LEFT VERTEBRAL ARTERY (DSA - PA, LATERAL - HEAD) The left vertebral artery is patent without significant stenoti c lesion. The left posterior inferior cerebellar artery fills fully and is rajinder l in course and appearance. The basilar artery shows no significant abnormality. 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 No aneurysms, vascu lar malformations, or stenotic lesions are noted in the vertebrobasilar system. The venous phase shows patent bilateral transverse and sigmoid sinuses. LEFT COM MON CAROTID ARTERY (DSA - PA, LATERAL - CERVICAL) The origins of the left application support intern al and external carotid arteries are widely patent without evidence of ulceratio n or stenosis. LEFT COMMON CAROTID ARTERY (DSA - PA, LATERAL, OBLIQUE - HEAD) Th e petrous, cavernous, supraclinoid, and terminal segments of the ICA are patent without any stenosis. The left anterior cerebral artery fills slowly and is norm al in course and appearance. There is spontaneous flash filling across the anter ior communicating artery. The left middle cerebral artery fills slowly and is no rmal in course and appearance. No posterior communicating artery is visualized. No vascular malformations, stenosis, or vasospasm is observed. No significant ab normalities are seen in the capillary and venous phases. The venous phase demons trates patent transverse and sigmoid sinuses. The visualized portions of the ext ernal carotid artery and its branches are normal without evidence of ulceration or stenosis. There is no evidence of arteriovenous shunting. The venous phase is normal. RIGHT COMMON CAROTID ARTERY (DSA - PA, LATERAL - CERVICAL) The origins of the right internal and external carotid arteries are widely patent without ev idence of ulceration or stenosis. RIGHT COMMON CAROTID ARTERY (DSA - PA, LATERAL , OBLIQUE - HEAD) The petrous, cavernous, supraclinoid, and terminal segments of the ICA are patent without any stenosis. There is physiologic filling of the MC A and CONOR branches and territories. The distal branches of the anterior cerebral and middle cerebral arteries are normal in appearance. No posterior communicati ng artery is visualized. There is spontaneous flash crossfilling across the ante rior communicating artery. No vascular malformation or arteriovenous shunting is noted. No stenosis or vasospasm is observed. No significant abnormalities are s een in the capillary and venous phases. The venous phase demonstrates patent tra nsverse and sigmoid sinuses. The visualized portions of the external carotid art enzo and its branches are normal without evidence of ulceration or stenosis. Ther e is no evidence of arteriovenous shunting. The venous phase is normal. RIGHT VE RTEBRAL ARTERY (DSA - PA, LATERAL - HEAD) The right vertebral artery is patent w ithout significant stenotic lesion. The right PICA fills fully and is normal in course and appearance. There is contrast reflux into the left vertebral artery i ncluding PICA. The basilar artery shows no significant abnormality. There is sym metric caudal regression of the basilar artery. No aneurysms, vascular malformat ions, or stenotic lesions are noted in the vertebrobasilar system. The venous ph ase shows patent bilateral transverse and sigmoid sinuses. SUPERVISION AND INTE RPRETATION: Angiographic study demonstrates: 1. No vascular abnormalities. No im mediate technical or clinical complications. Signed: Rio Zarate Date/Time: 08/14/2019 15:33:22 Reading Location: [facility] Y026 Neuro Angio Read ing Room C METABOLIC [id number] 05:38:00* Test Item Value Reference Range Interpretation Comments SODIUM (BEAKER) (test code = 381) 142 meq/L 136-145 POTASSIUM (BEAKER) (test code = 379) 3.8 meq/L 3.5-5.1 CHLORIDE (BEAKER) (test code = 382) 109 meq/L 98-107 H CO2 (BEAKER) (test code = 355) 23 meq/L 22-29 BLOOD UREA NITROGEN (BEAKER) (test code = 354) 12 mg/dL 7-21 CREATININE (BEAKER) (test code = 358) 0.90 mg/dL 0.57-1.25 GLUCOSE RANDOM (BEAKER) (test code = 652) 89 mg/dL 70-105 CALCIUM (BEAKER) (test code = 697) 9.5 mg/dL 8.4-10.2 EGFR (BEAKER) (test code = 1092) 90 mL/min/1.73 sq m ESTIMATED GFR IS NOT ACCURATE CREATININE CLEARANCE IN PREDICTING GLOMERULAR FILTRATION RATE. ESTIMATED GFR IS NOT APPLICABLE FOR DIALYSIS PATIENTS. CBC (HEMOGRAM ONLY)2019-08-14 05:02:00* Test Item Value Reference Range Interpretation Comments WHITE BLOOD CELL COUNT (BEAKER) (test code = 775) 7.9 K/ L 3.5- 10.5 RED BLOOD CELL COUNT (BEAKER) (test code = 761) 5.08 M/ L 4.63-6 .08 HEMOGLOBIN (BEAKER) (test code = 410) 15.1 GM/DL 13.7-17.5 HEMATOCRIT (BEAKER) (test code = 411) 45.6 % 40.1-51.0 MEAN CORPUSCULAR VOLUME (BEAKER) (test code = 753) 89.8 fL 79. 0-92.2 MEAN CORPUSCULAR HEMOGLOBIN (BEAKER) (test code = 751) 29.7 pg 25.7-32.2 MEAN CORPUSCULAR HEMOGLOBIN CONC (BEAKER) (test code = 752) 33.1 GM/DL 32.3-36.5 RED CELL DISTRIBUTION WIDTH (BEAKER) (test code = 412) 12.5 % 11.6-14.4 PLATELET COUNT (BEAKER) (test code = 756) 191 K/CU MM 150-450 MEAN PLATELET VOLUME (BEAKER) (test code = 754) 11.1 fL 9.4-12 .4 NUCLEATED RED BLOOD CELLS (BEAKER) (test code = 413) 0 /100 WBC 0 -0 [id number] 09:40:00* Test Item Value Reference Range Interpretation Comments RPR SCREEN (BEAKER) (test code = 420) Nonreactive Nonreactive RHEUMATOID FACTOR AB, REFLEX TO [id number] 09:39:00* Test Item Value Reference Range Interpretation Comments RHEUMATOID FACTOR (BEAKER) (test code = 573) Negative ANTI-NUCLEAR ANTIBODY (GAIL)2019-08-13 09:22:00* Test Item Value Reference Range Interpretation Comments ANTI-NUCLEAR ANTIBODY (GAIL) (BEAKER) (test code = 418) Negative Negative Test performed by IFA method.Test performed by IFA method.DOUBLE-STRANDED DNA (DSDNA) [id number] 09:22:00* Test Item Value Reference Range Interpretation Comments ANTI-DNA DS (BEAKER) (test code = 1055) Negative ANTITHROMBIN [id number] 08:35:00* Test Item Value Reference Range Interpretation Comments ANTITHROMBIN III ACTIVITY (BEAKER) (test code = 711) 87.0 % 8 0.0-120.0 [id number] 06:14:00* Test Item Value Reference Range Interpretation Comments HOMOCYSTEINE (BEAKER) (test code = 642) 9.5 umol/L 5.1-15.4 COMPLEMENT COMPONENT [id number] 05:29:00* Test Item Value Reference Range Interpretation Comments C4 COMPLEMENT (BEAKER) (test code = 394) 21 mg/dL 15-57 COMPLEMENT COMPONENT [id number] 05:29:00* Test Item Value Reference Range Interpretation Comments C3 COMPLEMENT (BEAKER) (test code = 393) 135 mg/dL 82-193 BASIC METABOLIC [id number] 05:15:00* Test Item Value Reference Range Interpretation Comments SODIUM (BEAKER) (test code = 381) 140 meq/L 136-145 POTASSIUM (BEAKER) (test code = 379) 3.7 meq/L 3.5-5.1 CHLORIDE (BEAKER) (test code = 382) 109 meq/L 98-107 H CO2 (BEAKER) (test code = 355) 23 meq/L 22-29 BLOOD UREA NITROGEN (BEAKER) (test code = 354) 13 mg/dL 7-21 CREATININE (BEAKER) (test code = 358) 0.93 mg/dL 0.57-1.25 GLUCOSE RANDOM (BEAKER) (test code = 652) 89 mg/dL 70-105 CALCIUM (BEAKER) (test code = 697) 9.1 mg/dL 8.4-10.2 EGFR (BEAKER) (test code = 1092) 87 mL/min/1.73 sq m ESTIMATED GFR IS NOT ACCURATE CREATININE CLEARANCE IN PREDICTING GLOMERULAR FILTRATION RATE. ESTIMATED GFR IS NOT APPLICABLE FOR DIALYSIS PATIENTS. C-REACTIVE [id number] 05:15:00* Test Item Value Reference Range Interpretation Comments C-REACTIVE PROTEIN (BEAKER) (test code = 676) 0.04 mg/dL 0.00-0.5 0 CBC (HEMOGRAM ONLY)2019-08-13 04:47:00* Test Item Value Reference Range Interpretation Comments WHITE BLOOD CELL COUNT (BEAKER) (test code = 775) 7.1 K/ L 3.5- 10.5 RED BLOOD CELL COUNT (BEAKER) (test code = 761) 4.88 M/ L 4.63-6 .08 HEMOGLOBIN (BEAKER) (test code = 410) 14.4 GM/DL 13.7-17.5 HEMATOCRIT (BEAKER) (test code = 411) 44.3 % 40.1-51.0 MEAN CORPUSCULAR VOLUME (BEAKER) (test code = 753) 90.8 fL 79. 0-92.2 MEAN CORPUSCULAR HEMOGLOBIN (BEAKER) (test code = 751) 29.5 pg 25.7-32.2 MEAN CORPUSCULAR HEMOGLOBIN CONC (BEAKER) (test code = 752) 32.5 GM/DL 32.3-36.5 RED CELL DISTRIBUTION WIDTH (BEAKER) (test code = 412) 12.6 % 11.6-14.4 PLATELET COUNT (BEAKER) (test code = 756) 189 K/CU MM 150-450 MEAN PLATELET VOLUME (BEAKER) (test code = 754) 11.2 fL 9.4-12 .4 NUCLEATED RED BLOOD CELLS (BEAKER) (test code = 413) 0 /100 WBC 0 -0 MR, BRAIN, WITHOUT [id number] 22:00:00FINAL REPORT MRI Brain without contrast Clinical History: [...] disease. Remote small left cerebellar hemisphere infarction. Ventr icles are normal in size and configuration. There is no hydrocephalus or midlin e shift. There are no extra-axial fluid collections. The craniocervical junction is preserved. The major intracranial flow-voids appear patent. Mucous retentio n cyst in the bilateral maxillary sinuses. 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 Air- fluid levels in the bilateral sphenoid sinuses . Middle ears and mastoid air sophia ls are clear. Intraorbital contents are unremarkable. No aggressive osseous or s oft tissue lesions identified. IMPRESSION: Scattered foci of restricted diffusio n within the left frontal and parietal lobe cortex consistent with acute infarct ion.. No intracranial hemorrhage. Air-fluid levels in the bilateral sphenoid s inuses may be related to recent oropharyngeal tubes, correlate clinically.. Sig alena: Devang Corbett MDReport Verified Date/Time: 08/12/2019 22:00:00 Mary Alice ctronically signed by: DEVANG CORBETT MD on 08/12/2019 10:00 PM BASIC METABOLIC [id number] 21:21:00* Test Item Value Reference Range Interpretation Comments SODIUM (BEAKER) (test code = 381) 140 meq/L 136-145 POTASSIUM (BEAKER) (test code = 379) 4.0 meq/L 3.5-5.1 Specimen slightly hemolyzed CHLORIDE (BEAKER) (test code = 382) 110 meq/L 98-107 H CO2 (BEAKER) (test code = 355) 21 meq/L 22-29 L BLOOD UREA NITROGEN (BEAKER) (test code = 354) 14 mg/dL 7-21 CREATININE (BEAKER) (test code = 358) 1.02 mg/dL 0.57-1.25 Specimen slightly hemolyzed GLUCOSE RANDOM (BEAKER) (test code = 652) 100 mg/dL 70-105 CALCIUM (BEAKER) (test code = 697) 9.0 mg/dL 8.4-10.2 EGFR (BEAKER) (test code = 1092) 78 mL/min/1.73 sq m ESTIMATED GFR IS NOT ACCURATE CREATININE CLEARANCE IN PREDICTING GLOMERULAR FILTRATION RATE. ESTIMATED GFR IS NOT APPLICABLE FOR DIALYSIS PATIENTS. VITAMIN B12 AND [id number] 20:20:00* Test Item Value Reference Range Interpretation Comments VITAMIN B12 (BEAKER) (test code = 774) 427 pg/mL 213-816 FOLATE (BEAKER) (test code = 362) 16.9 ng/mL >=7.0 HEMOGLOBIN [id number] 16:07:00* Test Item Value Reference Range Interpretation Comments HEMOGLOBIN A1C (BEAKER) (test code = 368) 5.2 % 4.3-6.1 HEMOGLOBIN [id number] 16:07:00* Test Item Value Reference Range Interpretation Comments HEMOGLOBIN A1C (BEAKER) (test code = 368) 5.2 % 4.3-6.1 CBC W/PLT COUNT & AUTO [id number] 12:29:00* Test Item Value Reference Range Interpretation Comments WHITE BLOOD CELL COUNT (BEAKER) (test code = 775) 8.9 K/ L 3.5- 10.5 RED BLOOD CELL COUNT (BEAKER) (test code = 761) 4.50 M/ L 4.63-6 .08 L HEMOGLOBIN (BEAKER) (test code = 410) 13.4 GM/DL 13.7-17.5 L HEMATOCRIT (BEAKER) (test code = 411) 40.7 % 40.1-51.0 MEAN CORPUSCULAR VOLUME (BEAKER) (test code = 753) 90.4 fL 79. 0-92.2 MEAN CORPUSCULAR HEMOGLOBIN (BEAKER) (test code = 751) 29.8 pg 25.7-32.2 MEAN CORPUSCULAR HEMOGLOBIN CONC (BEAKER) (test code = 752) 32.9 GM/DL 32.3-36.5 RED CELL DISTRIBUTION WIDTH (BEAKER) (test code = 412) 12.6 % 11.6-14.4 PLATELET COUNT (BEAKER) (test code = 756) 204 K/CU MM 150-450 MEAN PLATELET VOLUME (BEAKER) (test code = 754) 11.1 fL 9.4-12 .4 NUCLEATED RED BLOOD CELLS (BEAKER) (test code = 413) 0 /100 WBC 0 -0 NEUTROPHILS RELATIVE PERCENT (BEAKER) (test code = 429) 66 % LYMPHOCYTES RELATIVE PERCENT (BEAKER) (test code = 430) 23 % MONOCYTES RELATIVE PERCENT (BEAKER) (test code = 431) 8 % EOSINOPHILS RELATIVE PERCENT (BEAKER) (test code = 432) 2 % BASOPHILS RELATIVE PERCENT (BEAKER) (test code = 437) 0 % NEUTROPHILS ABSOLUTE COUNT (BEAKER) (test code = 670) 5.92 K/ L 1.78-5.38 H LYMPHOCYTES ABSOLUTE COUNT (BEAKER) (test code = 414) 2.08 K/ L 1.32-3.57 MONOCYTES ABSOLUTE COUNT (BEAKER) (test code = 415) 0.72 K/ L 0. 30-0.82 EOSINOPHILS ABSOLUTE COUNT (BEAKER) (test code = 416) 0.13 K/ L 0.04-0.54 BASOPHILS ABSOLUTE COUNT (BEAKER) (test code = 417) 0.04 K/ L 0. 01-0.08 IMMATURE GRANULOCYTES-RELATIVE PERCENT (BEAKER) (test code = 2801) 0 % 0-1 PT/[id number] 11:31:00* Test Item Value Reference Range Interpretation Comments PROTIME (BEAKER) (test code = 759) 15.5 seconds 11.9-14.2 H INR (BEAKER) (test code = 370) 1.3 <=5.9 PARTIAL THROMBOPLASTIN TIME (BEAKER) (test code = 760) 29.2 seconds 22.5-36.0 Effective 01/09/2019: PT Reference Range ChangeNew: 11.9-14.2 Previous: 11.7-14. 7RECOMMENDED COUMADIN/WARFARIN INR THERAPY RANGESSTANDARD DOSE: 2.0-3.0 Include s: PROPHYLAXIS for venous thrombosis, systemic embolization; TREATMENT for venou s thrombosis and/or pulmonary embolus.HIGH RISK: Target INR is 2.5-3.5 for patie nts wiht mechanical heart valves.TSH/FREE T4 IF [id number] 01:48:00* Test Item Value Reference Range Interpretation Comments THYROID STIMULATING HORMONE (BEAKER) (test code = 772) 1.58 uIU/mL 0.35-4.94 TROPONIN [id number] 01:35:00* Test Item Value Reference Range Interpretation Comments TROPONIN I (BEAKER) (test code = 397) 0.01 ng/mL 0.00-0.03 Troponin I (TnI) levels must be interpreted in the context of the presenting sym ptoms and the clinical findings. Elevated TnI levels indicate myocardial damage, but are not specific for ischemic heart disease. Elevated TnI levels are seen i n patients with other cardiac conditions (including myocarditis and congestive h eart failure), and slight TnI elevations occur in patients with other conditions , including sepsis, renal failure, acidosis, acute neurological disease, and per sistent tachyarrhythmia.FastingLIPID [id number] 01:28:00* Test Item Value Reference Range Interpretation Comments TRIGLYCERIDES (BEAKER) (test code = 540) 126 mg/dL CHOLESTEROL (BEAKER) (test code = 631) 183 mg/dL HDL CHOLESTEROL (BEAKER) (test code = 976) 64 mg/dL LDL CHOLESTEROL CALCULATED (AKER) (test code = 633) 94 mg/dL Triglyceride Reference Range: Low Risk <150 Borderline 150-199 High Risk 200-499 Very High Risk >=500Cholesterol Reference Range: Low Risk <200 Borderline 200-239 High Risk >240HDL Cholesterol Reference Range: Low Risk >=60 High Risk <40LDL Cholesterol Reference Range: Optimal <100 Near Optimal 100-129 Borderline 130-159 High 160-189 Very High >=190 Fasting TSH/FREE T4 IF [id number] 21:53:00* Test Item Value Reference Range Interpretation Comments THYROID STIMULATING HORMONE (BEAKER) (test code = 772) 2.31 uIU/mL 0.35-4.94 TROPONIN [id number] 21:38:00* Test Item Value Reference Range Interpretation Comments TROPONIN I (BEAKER) (test code = 397) 0.01 ng/mL 0.00-0.03 Troponin I (TnI) levels must be interpreted in the context of the presenting sym ptoms and the clinical findings. Elevated TnI levels indicate myocardial damage, but are not specific for ischemic heart disease. Elevated TnI levels are seen i n patients with other cardiac conditions (including myocarditis and congestive h eart failure), and slight TnI elevations occur in patients with other conditions , including sepsis, renal failure, acidosis, acute neurological disease, and per sistent tachyarrhythmia.LIPID [id number] 21:35:00* Test Item Value Reference Range Interpretation Comments TRIGLYCERIDES (BEAKER) (test code = 540) 144 mg/dL CHOLESTEROL (BEAKER) (test code = 631) 182 mg/dL HDL CHOLESTEROL (BEAKER) (test code = 976) 60 mg/dL LDL CHOLESTEROL CALCULATED (BEAKER) (test code = 633) 93 mg/dL Triglyceride Reference Range: Low Risk <150 Borderline 150-199 High Risk 200-499 Very High Risk >=500Cholesterol Reference Range: Low Risk <200 Borderline 200-239 High Risk >240HDL Cholesterol Reference Range: Low Risk >=60 High Risk <40LDL Cholesterol Reference Range: Optimal <100 Near Optimal 100-129 Borderline 130-159 High 160-189 Very High >=190 BASIC METABOLIC [id number] 21:35:00* Test Item Value Reference Range Interpretation Comments SODIUM (BEAKER) (test code = 381) 140 meq/L 136-145 POTASSIUM (BEAKER) (test code = 379) 3.4 meq/L 3.5-5.1 L CHLORIDE (BEAKER) (test code = 382) 105 meq/L 98-107 CO2 (BEAKER) (test code = 355) 24 meq/L 22-29 BLOOD UREA NITROGEN (BEAKER) (test code = 354) 15 mg/dL 7-21 CREATININE (BEAKER) (test code = 358) 1.08 mg/dL 0.57-1.25 GLUCOSE RANDOM (BEAKER) (test code = 652) 121 mg/dL 70-105 H CALCIUM (BEAKER) (test code = 697) 9.3 mg/dL 8.4-10.2 EGFR (BEAKER) (test code = 1092) 73 mL/min/1.73 sq m ESTIMATED GFR IS NOT ACCURATE CREATININE CLEARANCE IN PREDICTING GLOMERULAR FILTRATION RATE. ESTIMATED GFR IS NOT APPLICABLE FOR DIALYSIS PATIENTS. RAD, CHEST, 1 VIEW, NON [id number] 21:32:00Reason for exam:->CEREBROVASCULAR ACCIDENTShould this be performed at the bedside?->YesFINAL REPORT History: CVA. Comparison: None. Findings: A single view of the chest is submitted. The cardiomediastinal contours are unremarkable. There is no focal consolidation, pneumothorax, large pleural effusion or evidence of overt pulmonary edema. There is no acute bony abnormality. Impression: No acute abnormality. Signed: Ralf Taylor MDReport Verified Date/Time: 08/11/2019 21:32:20 W/PLT COUNT & AUTO [id number] 21:26:00* Test Item Value Reference Range Interpretation Comments WHITE BLOOD CELL COUNT (BEAKER) (test code = 775) 10.3 K/ L 3.5- 10.5 RED BLOOD CELL COUNT (BEAKER) (test code = 761) 5.01 M/ L 4.63-6 .08 HEMOGLOBIN (BEAKER) (test code = 410) 14.8 GM/DL 13.7-17.5 HEMATOCRIT (BEAKER) (test code = 411) 44.2 % 40.1-51.0 MEAN CORPUSCULAR VOLUME (BEAKER) (test code = 753) 88.2 fL 79. 0-92.2 MEAN CORPUSCULAR HEMOGLOBIN (BEAKER) (test code = 751) 29.5 pg 25.7-32.2 MEAN CORPUSCULAR HEMOGLOBIN CONC (BEAKER) (test code = 752) 33.5 GM/DL 32.3-36.5 RED CELL DISTRIBUTION WIDTH (BEAKER) (test code = 412) 12.5 % 11.6-14.4 PLATELET COUNT (BEAKER) (test code = 756) 195 K/CU MM 150-450 MEAN PLATELET VOLUME (BEAKER) (test code = 754) 11.0 fL 9.4-12 .4 NUCLEATED RED BLOOD CELLS (BEAKER) (test code = 413) 0 /100 WBC 0 -0 NEUTROPHILS RELATIVE PERCENT (BEAKER) (test code = 429) 85 % LYMPHOCYTES RELATIVE PERCENT (BEAKER) (test code = 430) 10 % MONOCYTES RELATIVE PERCENT (BEAKER) (test code = 431) 4 % EOSINOPHILS RELATIVE PERCENT (BEAKER) (test code = 432) 0 % BASOPHILS RELATIVE PERCENT (BEAKER) (test code = 437) 0 % NEUTROPHILS ABSOLUTE COUNT (BEAKER) (test code = 670) 8.72 K/ L 1.78-5.38 H LYMPHOCYTES ABSOLUTE COUNT (BEAKER) (test code = 414) 1.03 K/ L 1.32-3.57 L MONOCYTES ABSOLUTE COUNT (BEAKER) (test code = 415) 0.43 K/ L 0. 30-0.82 EOSINOPHILS ABSOLUTE COUNT (BEAKER) (test code = 416) 0.03 K/ L 0.04-0.54 L BASOPHILS ABSOLUTE COUNT (BEAKER) (test code = 417) 0.04 K/ L 0. 01-0.08 IMMATURE GRANULOCYTES-RELATIVE PERCENT (BEAKER) (test code = 2801) 0 % 0-1 CTA [id number] 19:21:00 [facility] [address] [address] Patient Name: RONI VENTURA MR #: [id number] : 1970 Age/Sex: 49/M Req #: [id number] Adm Physician: Ordered by: PIYUSH ESPARZA MD Report #: [id number] Location: ER Room/Bed: Procedure: [id number] CT/CT A BRAIN Exam Date: 08/11/19 Exam Time: 1841 REPORT STATUS: Signed History:Altered me ntal status, right-sided weakness. Comparison studies:No direct comparison, compared with CT brain from earlier the same day. Technique: Axial im ages were obtained from the skull base to the vertex. Coronal and sagittal maddie ges reconstructed from the axial data. Multi-planar and 3-D reconstructed maddie ges were obtained. Dose modulation, iterative reconstruction, and/or weight ba sed adjustment of the mA/kV was utilized to reduce the radiation dose to as lo w as reasonably achievable. Intravenous contrast: 100 cc of Isovue 370. Findings: Internal carotid arteries: Right: Patent, no abnormality in ri ght M1, A1 and A2 segments. Nonspecific mild diminutive caliber of distal righ t M2 and M3 segments. Left: Patent, no abnormality in the intracranial segment s of left internal carotid artery and left M1, A1, A2 segments. 4 mm segment o cclusion of distal left M2 segment with distal flow (image 131, series 301), c orresponds to focal punctate hyperdensity in precontrast CT head from earlier the same day (best seen in image 44, series 400) represents nonocclusive throm bus. Moderate to good collaterals. Vertebral arteries: Patent, no abnor mality. Basilar artery: Patent, no abnormality. Posterior cerebral a rteries: Patent, no abnormality in left posterior cerebral artery. Diminutiv e caliber of distal right P3 and P4 segments. Anatomical variants: Anteri or communicating artery :Patent Posterior communicating arteries: Not visualiz ed. Vertebral arteries: Codominant. IMPRESSION: 1. A 4 mm segme nt nonocclusive thrombus in distal left M2 segment with distal flow. 2. M ild diminutive caliber of distal right M2 and M3 segments of middle cerebral a rtery, distal right P3 and P4 segments of posterior cerebral artery raises pos sibility of underlying vasculitis. Recommendation: Neuro endovascular con sultation and further evaluation with conventional angiogram for further asses sment. Findings were informed to ER physician Dr. Mcnally by phone at 7: 35 PM on 08/11/2019. Signed by: Dr. Rizwana Elliott M.D. on 08/11/2019 7 :59 PM Dictated By: RIZWANA ELLIOTT MD 58 Transcribed By: MARIA on 08/11/191958 PARTITION ASSEMBLY MACHINE OPERATOR Y TO: PIYUSH ESPARZA MD Acetaminophen [id number] 18:58:00* Test Item Value Reference Range Interpretation Comments Acetaminophen Level (test code = 06264-9) < 3 10-30 [facility] [id number] 18:58:00* Test Item Value Reference Range Interpretation Comments Ethyl Alcohol Level (test code = 5643-2) < 10.0 0.0-10.0 [facility] Stationalicylates [id number] 18:58:00* Test Item Value Reference Range Interpretation Comments Salicylates Level (test code = 4024-6) < 5.0 0-30 [facility] CenterB[facility] Natriuretic Afrimdk2107-17-09 18:56:00* Test Item Value Reference Range Interpretation Comments B-Type Natriuretic Peptide (test code = 30901-8) 19.4 0-100 [facility] CenterCreatine Kinase [id number] 18:56:00* Test Item Value Reference Range Interpretation Comments Creatine Kinase MB (test code = 35621-0) 2.90 0-5.0 [facility] CenterTroponin [id number] 18:56:00* Test Item Value Reference Range Interpretation Comments Troponin I (test code = ROF2369) < 0.001 0-0.300 [facility] CenterCHEST SINGLE (PORTABLE)2019-08-11 18:28:00 [facility] [address] [place] [address] Patient Name: RONI VENTURA MR #: [id number] : 1970 Age/Sex: 49/M Req #: [id number] Adm Physician: Ordered by: TAD SHARP [employer] SYSTEM[employer] ANALYST Report #: [id number] Location: ER Room/Bed: Procedure: [id number] DX/ CHEST SINGLE (PORTABLE) Exam Date: 08/11/19 Exam Steven e: 1803 REPORT STATUS: Signed Ex amination: Single AP view of the chest. COMPARISON: None. INDICATION: Altered mental status DISCUSSION: Lines/tubes: None. Lungs: Central pulmonary venous congestion. Low lung volume. Pleura: No pleural effusion or pneumothorax. Heart and mediastinum: Mild cardiomegaly B ones and soft tissues: No acute bony abnormalities. IMPRESSION: Mild cardiomegaly with central venous congestion Signed by: Dr. Mercy juarez M.D. on 08/11/2019 6:29 PM Dictated By: MERCY ALVAREZ MD Electr onically Signed By: MERCY ALVAREZ MD on 08/11/191828 Transcribed By: CHANCE Haskins on 08/11/191828 COPY TO: TAD SHARP NP Sodium Level 2019-08-11 18:26:00* Test Item Value Reference Range Interpretation Comments Sodium Level (test code = 2951-2) 140 136-145 [facility] CenterPotassium Ryjoh2664-99-06 18:26:00* Test Item Value Reference Range Interpretation Comments Potassium Level (test code = 2823-3) 3.2 3.5-5.1 L [facility] CenterChloride Povue1418-12-89 18:26:00* Test Item Value Reference Range Interpretation Comments Chloride Level (test code = 2075-0) 104 98-107 [facility] CenterCarbon Dioxide Qbesb6318-87-03 18:26:00* Test Item Value Reference Range Interpretation Comments Carbon Dioxide Level (test code = 2028-9) 24 - [facility] CenterAnion Dwv8856-32-31 18:26:00* Test Item Value Reference Range Interpretation Comments Anion Gap (test code = 29683-9) 15.2 8-16 [facility] CenterBlood Urea Sjopcweg2324-16-01 18:26:00* Test Item Value Reference Range Interpretation Comments Blood Urea Nitrogen (test code = 3094-0) 15 7-26 [facility] CenterCreatinine2019-12-29 18:26:00* Test Item Value Reference Range Interpretation Comments Creatinine (test code = 2160-0) 1.19 0.72-1.25 [facility] CenterBUN/Creatinine Rewjo2850-96-29 18:26:00* Test Item Value Reference Range Interpretation Comments BUN/Creatinine Ratio (test code = 3097-3) 13 6- [facility] CenterEstimat Glomerular Filtration Rate 2019-08-11 18:26:00* Test Item Value Reference Range Interpretation Comments Estimat Glomerular Filtration Rate (test code = 806199432) > 60 >60 Ranges were taken from the National Kidney Disease Education Program and the [facility] access hospital Kidney Foundation literature.Reference ranges:60 or greater: Ydnxpj79-97 ( for 3 consecutive months): Chronic kidney disease 15 or less: Kidney failureFort [facility] Regional Medical CenterGlucose Vpmxl3643-06-75 18:26:00* Test Item Value Reference Range Interpretation Comments Glucose Level (test code = UEM5258) 88 74-118 [facility] CenterCalcium Vnqal6349-71-54 18:26:00* Test Item Value Reference Range Interpretation Comments Calcium Level (test code = 87369-0) 10.0 8.4-10.2 [facility] CenterTotal Hwlqswbim3816-04-80 18:26:00* Test Item Value Reference Range Interpretation Comments Total Bilirubin (test code = 1975-2) 0.8 0.2-1.2 [facility] CenterAspartate Amino Transf (AST/SGOT) 2019-08-11 18:26:00* Test Item Value Reference Range Interpretation Comments Aspartate Amino Transf (AST/SGOT) (test code = Aspartate Amino Transf (AST/SGOT)) 26 5-34 [facility] CenterAlanine Aminotransferase (ALT/SGPT) 2019-08-11 18:26:00* Test Item Value Reference Range Interpretation Comments Alanine Aminotransferase (ALT/SGPT) (test code = 1742-6) 26 0-55 [facility] CenterTotal Nfmoumu7047-60-10 18:26:00* Test Item Value Reference Range Interpretation Comments Total Protein (test code = 2885-2) 7.9 6.5-8.1 [facility] CenterAlbumin2019-12-29 18:26:00* Test Item Value Reference Range Interpretation Comments Albumin (test code = 1751-7) 4.3 3.5-5.0 [facility] CenterGlobulin2019-12-29 18:26:00* Test Item Value Reference Range Interpretation Comments Globulin (test code = 53302-0) 3.6 2.3-3.5 H [facility] CenterAlbumin/Globulin Eimxf5388-23-35 18:26:00 * Test Item Value Reference Range Interpretation Comments Albumin/Globulin Ratio (test code = 1759-0) 1.2 0.8-2.0 [facility] CenterAlkaline Zhuaesiextn5522-37-29 18:26:00* Test Item Value Reference Range Interpretation Comments Alkaline Phosphatase (test code = 6768-6) 43 40-150 [facility] CenterCreatine Lflfvv4886-91-84 18:26:00* Test Item Value Reference Range Interpretation Comments Creatine Kinase (test code = 2157-6) 266 30-200 H [facility] CenterUrine Vnfjm6946-31-48 18:24:00* Test Item Value Reference Range Interpretation Comments Urine Color (test code = 5778-6) YELLOW YELLOW [facility] CenterUrine Cayphvm1341-50-15 18:24:00* Test Item Value Reference Range Interpretation Comments Urine Clarity (test code = 04852-2) CLEAR CLEAR [facility] CenterUrine Specific Aayfcjy9548-64-93 18:24:00 * Test Item Value Reference Range Interpretation Comments Urine Specific [place] (test code = 5811-5) 1.005 1.010-1.02 5 L [facility] CenterUrine dY1455-68-27 18:24:00* Test Item Value Reference Range Interpretation Comments Urine pH (test code = 58423-1) 7 5-7 [facility] CenterUrine Leukocyte Pwdkhcja3261-11-09 18:24:00* Test Item Value Reference Range Interpretation Comments Urine Leukocyte Esterase (test code = 5799-2) NEGATIVE NEGATIVE [facility] CenterUrine Kkjwhmd7226-38-00 18:24:00* Test Item Value Reference Range Interpretation Comments Urine Nitrite (test code = 71133-1) NEGATIVE NEGATIVE [facility] CenterUrine Uanlsvx8421-98-41 18:24:00* Test Item Value Reference Range Interpretation Comments Urine Protein (test code = 5804-0) NEGATIVE NEGATIVE [facility] CenterUrine Glucose (UA)2019-08-11 18:24:00* Test Item Value Reference Range Interpretation Comments Urine Glucose (UA) (test code = 2349-9) NEGATIVE NEGATIVE [facility] CenterUrine Zlofdpf5113-62-04 18:24:00* Test Item Value Reference Range Interpretation Comments Urine Ketones (test code = 85412-9) NEGATIVE NEGATIVE [facility] CenterUrine Igxkjpvcgvxy2270-33-65 18:24:00* Test Item Value Reference Range Interpretation Comments Urine Urobilinogen (test code = 55073-7) 0.2 0.2-1 [facility] CenterUrine Gzhnklxdg2810-38-63 18:24:00* Test Item Value Reference Range Interpretation Comments Urine Bilirubin (test code = 1978-6) NEGATIVE NEGATIVE [facility] Sknue5958-91-25 18:24:00* Test Item Value Reference Range Interpretation Comments Urine Blood (test code = 35699-4) TRACE NEGATIVE [facility] SUO2279-21-43 18:24:00* Test Item Value Reference Range Interpretation Comments Urine WBC (test code = 5821-4) 6-10 0-5 H [facility] YRN8298-26-52 18:24:00* Test Item Value Reference Range Interpretation Comments Urine RBC (test code = 15688-6) 6-10 0-5 H [facility] Hyzzduuc5663-27-66 18:24:00* Test Item Value Reference Range Interpretation Comments Urine Bacteria (test code = 30171-7) RARE NONE [facility] CenterUrine Epithelial Hnwwh3208-82-08 18:24:00 * Test Item Value Reference Range Interpretation Comments Urine Epithelial Cells (test code = 27678-5) FEW NONE [facility] CenterActivated Partial Thromboplast Time 2019-08-11 18:21:00* Test Item Value Reference Range Interpretation Comments Activated Partial Thromboplast Time (test code = 04782-8) 24.3 23.8-35.5 [facility] CenterUrine Opiates Xkouib4512-76-20 18:20:00* Test Item Value Reference Range Interpretation Comments Urine Opiates Screen (test code = 10408-6) NEGATIVE NEGATIVE ALL TESTS PERFORMED MANUALLY ON [employer] TOX/SEE TESTFort [facility] Regional Medical CenterUrine Barbiturates Hsvizw0287-30-76 18:20:00* Test Item Value Reference Range Interpretation Comments Urine Barbiturates Screen (test code = 100741919) NEGATIVE NEGA TIVE [facility] CenterUrine Phencyclidine Zfnozl9145-96-65 18:20:00* Test Item Value Reference Range Interpretation Comments Urine Phencyclidine Screen (test code = 06711-0) NEGATIVE NEGAT TRICIA [facility] CenterUrine Amphetamines Acoady7435-24-15 18:20:00* Test Item Value Reference Range Interpretation Comments Urine Amphetamines Screen (test code = 39398-3) NEGATIVE NEGATI VE [facility] CenterUrine Methamphetamines Gvjnve0936-57-22 18:20:00* Test Item Value Reference Range Interpretation Comments Urine Methamphetamines Screen (test code = Urine Metha mphetamines Screen) NEGATIVE NEGATIVE [facility] CenterUrine Benzodiazepines Yjtkig3085-61-86 18:20:00* Test Item Value Reference Range Interpretation Comments Urine Benzodiazepines Screen (test code = 97623-8) NEGATIVE NEG ATIVE [facility] CenterUrine Cocaine Czqlnc1343-23-71 18:20:00* Test Item Value Reference Range Interpretation Comments Urine Cocaine Screen (test code = 3398-5) NEGATIVE NEGATIVE [facility] CenterUrine Cannabinoids Kllxsa3537-70-88 18:20:00* Test Item Value Reference Range Interpretation Comments Urine Cannabinoids Screen (test code = 99315-0) NEGATIVE NEGATI VE THESE RESULTS ARE FOR MEDICAL TREATMENT ONLYTHIS REPORT CONTAINS UNCONFIR MED SCREENING RESULTS*POSITIVE RESULTS WILL BE CONFIRMED BY REFERENCE LAB UPON R EQUEST CUT-OFFDRUG CLASS CONCENTRATION ng/mLAmphetamines 1000Methamphetamines 1000Cocaine 300Opiate 300Phencyc lidine 25Cannabinoid 50Barbiturates 300Benzodiazepine 300Methadone 300[facility] Cgvpjr8149-61-47 18:20:00* Test Item Value Reference Range Interpretation Comments Urine Methadone Screen (test code = 45083-9) NEGATIVE NEGATIVE THESE RESULTS ARE FOR MEDICAL TREATMENT ONLYTHIS REPORT CONTAINS UNCONFIR MED SCREENING RESULTS*POSITIVE RESULTS WILL BE CONFIRMED BY REFERENCE LAB UPON R EQUEST CUT-OFFDRUG CLASS CONCENTRATION ng/mLAmphetamines 1000Methamphetamines 1000Cocaine Metabolite 300Opiate 300Phencyc lidine 25Cannabinoid 50Barbiturates 300Benzodiazepine 300Methadone 300[facility] CenterProthrombin Hycd9423-48-26 18:19:00* Test Item Value Reference Range Interpretation Comments Prothrombin Time (test code = 5902-2) 12.1 11.9-14.5 [facility] CenterProthromb Time International Ratio 2019-08-11 18:19:00* Test Item Value Reference Range Interpretation Comments Prothromb Time International Ratio (test code = 6301-6) 0.85 Oral Anticoagulant Therapy INR Values:1. Low Intensity Therapy 1.5 - 2.02 . Moderate Intensity Therapy 2.0 - 3.03. High Intensity Therapy(1) 2.5 - 3. 54. High Intensity Therapy(2) 3.0 - 4.05. Panic Value INR > 5.0 [facility] CenterBedside Azscsbp9542-63-71 18:02:00* Test Item Value Reference Range Interpretation Comments Bedside Glucose (test code = 36575-7) 93 70-120 Meter ID: [id number] [facility] CenterWhite Blood Count 2019-08-11 17:56:00* Test Item Value Reference Range Interpretation Comments White Blood Count (test code = 6690-2) 8.53 4.8-10.8 [facility] CenterRed Blood Wezbl8156-08-22 17:56:00* Test Item Value Reference Range Interpretation Comments Red Blood Count (test code = 789-8) 5.18 4.3-5.7 [facility] CenterHemoglobin2019-12-29 17:56:00* Test Item Value Reference Range Interpretation Comments Hemoglobin (test code = 88768-3) 15.6 14.0-18.0 [facility] CenterHematocrit2019-12-29 17:56:00* Test Item Value Reference Range Interpretation Comments Hematocrit (test code = 4544-3) 45.0 38.2-49.6 [facility] CenterMean Corpuscular Bxmhhx7993-81-10 17:56:00* Test Item Value Reference Range Interpretation Comments Mean Corpuscular Volume (test code = 787-2) 86.9 81-99 [facility] CenterMean Corpuscular Ecvxseyxeg3461-34-18 17:56:00* Test Item Value Reference Range Interpretation Comments Mean Corpuscular Hemoglobin (test code = 785-6) 30.1 28-32 [facility] CenterMean Corpuscular Hemoglobin Concent 2019-08-11 17:56:00* Test Item Value Reference Range Interpretation Comments Mean Corpuscular Hemoglobin Concent (test code = 786-4) 34.7 31-35 [facility] CenterRed Cell Distribution Olaiz3768-91-66 17:56:00* Test Item Value Reference Range Interpretation Comments Red Cell Distribution Width (test code = 41459-3) 12.5 11.7 -14.4 [facility] CenterPlatelet Zecnn8115-69-41 17:56:00* Test Item Value Reference Range Interpretation Comments Platelet Count (test code = 777-3) 197 140-360 [facility] CenterNeutrophils (%) (Auto)2019-08-11 17:56:00 * Test Item Value Reference Range Interpretation Comments Neutrophils (%) (Auto) (test code = 09867-8) 33.3 38.7-80.0 L [facility] CenterLymphocytes (%) (Auto)2019-08-11 17:56:00 * Test Item Value Reference Range Interpretation Comments Lymphocytes (%) (Auto) (test code = 736-9) 51.9 18.0-39.1 H [facility] CenterMonocytes (%) (Auto)2019-08-11 17:56:00* Test Item Value Reference Range Interpretation Comments Monocytes (%) (Auto) (test code = 5905-5) 10.2 4.4-11.3 [facility] CenterEosinophils (%) (Auto)2019-08-11 17:56:00 * Test Item Value Reference Range Interpretation Comments Eosinophils (%) (Auto) (test code = 713-8) 3.6 0.0-6.0 [facility] CenterBasophils (%) (Auto)2019-08-11 17:56:00* Test Item Value Reference Range Interpretation Comments Basophils (%) (Auto) (test code = 706-2) 0.8 0.0-1.0 [facility] CenterIM GRANULOCYTES %2019-08-11 17:56:00* Test Item Value Reference Range Interpretation Comments IM GRANULOCYTES % (test code = IM GRANULOCYTES %) 0.2 0.0- 1.0 [facility] CenterNeutrophils # (Auto)2019-08-11 17:56:00* Test Item Value Reference Range Interpretation Comments Neutrophils # (Auto) (test code = 751-8) 2.8 2.1-6.9 [facility] CenterLymphocytes # (Auto)2019-08-11 17:56:00* Test Item Value Reference Range Interpretation Comments Lymphocytes # (Auto) (test code = 26188-8) 4.4 1.0-3.2 H [facility] CenterMonocytes # (Auto)2019-08-11 17:56:00* Test Item Value Reference Range Interpretation Comments Monocytes # (Auto) (test code = 742-7) 0.9 0.2-0.8 H [facility] CenterEosinophils # (Auto)2019-08-11 17:56:00* Test Item Value Reference Range Interpretation Comments Eosinophils # (Auto) (test code = 711-2) 0.3 0.0-0.4 [facility] CenterBasophils # (Auto)2019-08-11 17:56:00* Test Item Value Reference Range Interpretation Comments Basophils # (Auto) (test code = 704-7) 0.1 0.0-0.1 [facility] CenterAbsolute Immature Granulocyte (auto 2019-08-11 17:56:00* Test Item Value Reference Range Interpretation Comments Absolute Immature Granulocyte (auto (shantel t code = Absolute Immature Granulocyte (auto) 0.02 0-0.1 [facility] CenterCT BRAIN YR8800-92-68 17:42:00 [place] [address] Patient Name: RONI VENTURA MR #: [id number] : 1970 Age/Sex: 49/M Req #: [id number] Adm Physician: Ordered by: TAD SHARP LIN[employer] SYSTEM[employer] ANALYST Report #: [id number] Location: ER Room/Bed: Procedure: [id number] CT/ CT BRAIN WO Exam Date: 08/11/19 Exam Time: 1725 REPORT STATUS: Signed CT BRAIN WO HISTORY: Altered mental status, right-sided weakness COMPARISON: None. TECHNIQUE: Noncontrast axial scans were obtained from skull base to the vertex. Coronal and sagittal reconstructions obtained from the axial data. O ne or more of the following dose reduction techniques were used: Automated exp osure control, adjustment of the mA and/or kV according to patient size, and/o r utilization of iterative reconstruction technique. DISCUSSION: Sca lp/Skull: Unremarkable. Brain sulci: Appropriate for patient's age. Ventricl es: Normal in size and configuration. No hydrocephalus. Extra-axial spaces: N o masses or fluid collections. Parenchyma: Small focal hypodensity in the right garnica radiata does not exert significant mass effect. Otherwis e, no mass, hemorrhage, or large vascular territory acute infarct. Dural si nuses: No abnormal densities. Sellar/Suprasellar region: Intact. Skull base : Intact. Incidental findings: Mild scattered paranasal sinus mucosal thickeni ng is present. IMPRESSION: 1. Nonspecific subtle small focal hypodensi ty in the right garnica radiata may be due to age indeterminate ischemia or dem yelination in the proper clinical setting. 2. No other intracranial abnorma lities. Signed by: Dr. Stefano Eastman M.D. on 08/11/2019 5:48 PM Dictated By: STEFANO EASTMAN MD 49 Transcribed By: MARIA on 08/11/191747 COPY TO: TAD SHARP [employer] SYSTEM[employer] ANALYST [Q] Clostridium difficile Toxin/GDH with reflex to [id number] 07:21:00* Test Item Value Reference Range Interpretation Comments Clostridium Difficile Toxin/GDH w/Refl t o PCR (test code = Clostridium Difficile Toxin/GDH w/Refl to PCR) See Comment CLOSTR IDIUM DIFFICILE TOXIN/GDH W/REFL TO PCR MICRO NUMBER: [id number] TEST STATUS: FINAL SPECIMEN SOURCE: STOOL SPECIMEN QUALITY: ADEQUATE GDH ANTIGEN: Not Detected TOXIN A AND B: Not Detected COMMENT: No toxigenic C. difficile detected For additional information, please refer to [email or web address] (This link is being provided for informational/educational purposes only.) [facility]] OVA AND PARASITES, STOOL CONC/PERM SMEAR, 3 FWTW2666-98-18 07:21:00* Test Item Value Reference Range Interpretation Comments OVA AND PARASITES, STOOL CONC AND PERM S MEAR (test code = OVA AND PARASITES, STOOL CONC AND PERM SMEAR) See Comment OVA A ND PARASITES, CONC/PERM SMEAR, 3 SPEC MICRO NUMBER: [id number] TEST STATUS: FINAL SPECIMEN SOURCE: STOOL SPECIMEN QUALITY: ADEQUATE CONCENTRATION 1: No ova or parasites seen TRICHROME 1: No ova or parasites seen CONCENTRATION 2: No ova or parasites seen TRICHROME 2: No ova or parasites seen CONCENTRATION 3: No ova or parasites seen TRICHROME 3: No ova or parasites seen Routine Ova and Parasite exam may not detect some parasites that occasionally cause diarrheal illness. Test code(s) 05295 (Cryptosporidium Ag., DFA) and/or 89490 (Cyclospora and Isospora Exam) may be ordered to detect these parasites. For additional information, please refer to [email or web address] (This link is being provided for informational/ educational purposes only.) [facility][Q] CULTURE, STOOL, ERNESTO/SHIG/CAMPY AND SHIGA TOXINS EIA W/RFL E.COLI O157 QHWS3444-52-72 07:21:00* Test Item Value Reference Range Interpretation Comments EIA (test code = EIA) See Comment SHIGA TOXINS, EIA W/RFL TO E.COLI O157 CULTURE MICRO NUMBER: [id number] TEST STATUS: FINAL SPECIMEN SOURCE: STOOL SPECIMEN QUALITY: ADEQUATE RESULT: Not Detected Not Detected CULTURE (test code = CULTURE) See Comment SALMONELLA AND SHIGELLA, CULTURE MICRO NUMBER: [id number] TEST STATUS: FINAL SPECIMEN SOURCE: STOOL SPECIMEN QUALITY: ADEQUATE RESULT: No Salmonella or Shigella isolated [facility]] CMP W/ANUA9738-07-71 10:06:00* Test Item Value Reference Range Interpretation Comments GLUCOSE; Normal (test code = 1547-9) 85 mg/dl 65-99 N Fasting reference interval UREA NITROGEN (BUN) (test code = UREA NITROGEN (BUN)) 17 mg/dl 7-25 N CREATININE (test code = CREATININE) 1.03 mg/dl 0.60-1.35 N eGFR NON- (test code = eGFR NON-LETITIA N SERBIAN) 86 {ML/MIN/1.7} > OR = 60 N eGFR (test code = eGFR ) 10 0 {ML/MIN/1.7} > OR = 60 N BUN/CREATININE RATIO (test code = BUN/CREATININE RATIO) NOT APPLICA BLE 6-22 SODIUM (test code = SODIUM) 141 mmol/L 135-146 N POTASSIUM (test code = POTASSIUM) 4.3 mmol/L 3.5-5.3 N CHLORIDE (test code = CHLORIDE) 105 mmol/L 98-110 N CARBON DIOXIDE (test code = CARBON DIOXIDE) 29 mmol/L 20-32 N CALCIUM (test code = CALCIUM) 9.6 mg/dl 8.6-10.3 N PROTEIN, TOTAL (test code = PROTEIN, TOTAL) 7.3 g/dl 6.1-8.1 N ALBUMIN (test code = ALBUMIN) 4.5 g/dl 3.6-5.1 N GLOBULIN (test code = GLOBULIN) 2.8 {G/DL CALC} 1.9-3.7 N ALBUMIN/GLOBULIN RATIO (test code = ALBUMIN/GLOBULIN RATIO) 1.6 {CALC} 1.0-2.5 N BILIRUBIN, TOTAL; Above High Threshold (test code = 38415-4) 1.3 mg/dl 0.2-1.2 ALKALINE PHSPHATASE (test code = ALKALINE PHSPHATASE) 44 u/l 40-115 N AST; Normal (test code = 1916-6) 22 u/l 10-40 N ALT; Normal (test code = 1742-6) 21 u/l 9-46 N [facility]] CBC (INCLUDES DIFF/PLT)2019-05-04 10:06:00* Test Item Value Reference Range Interpretation Comments WHITE BLOOD CELL COUNT (test code = WHITE BLOOD CELL COUNT) 6.7 {Thousand/u} 3.8-10.8 N RED BLOOD CELL COUNT (test code = RED BLOOD CELL COUNT) 5.12 {Million/uL} 4.20-5.80 N HEMAGLOBIN; Normal (test code = 48469-6) 15.5 g/dl 13.2-17.1 N HEMATOCRIT; Normal (test code = 4544-3) 44.9 % 38.5-50.0 N MCV; Normal (test code = 787-2) 87.7 fL 80.0-100.0 N MCHC; Normal (test code = 59198-3) 34.5 g/dl 32.0-36.0 N RDW; Normal (test code = 788-0) 12.4 % 11.0-15.0 N PLATELET COUNT; Normal (test code = 777-3) 190 {Thousand/u} 140-400 N MPV; Normal (test code = 22320-0) 11.6 fL 7.5-12.5 N ABSOLUTE NEUTROPHILS (test code = ABSOLUTE NEUTROPHILS) 4382 {cells/uL} 2330-7465 N ABSOLUTE LYMPHOCYTES (test code = ABSOLUTE LYMPHOCYTES) 1146 {cells/uL} 850-3900 N ABSOLUTE MONOCYTES (test code = ABSOLUTE MONOCYTES) 1025 {cells/uL} 200-950 ABSOLUTE EOSINOPHILS (test code = ABSOLUTE EOSINOPHILS) 114 {cells/ uL} 15-500 N ABSOLUTE BASOPHILS (test code = ABSOLUTE BASOPHILS) 34 {cells/uL} 0 -200 N NEUTROPHILS (test code = NEUTROPHILS) 65.4 % N LYMPHOCYTES (test code = LYMPHOCYTES) 17.1 % N MONOCYTES; Normal (test code = 69408-9) 15.3 % N EOSINOPHILS; Normal (test code = 97861-7) 1.7 % N BASOPHILS; Normal (test code = 43682-7) 0.5 % N [facility][O] Urine Dipstick (In Office)2019-05-04 09:40:00 * Test Item Value Reference Range Interpretation Comments Glucose (test code = Glucose) NORMAL N LEUKOCYTES (test code = LEUKOCYTES) NEGATIVE N NITRITE; Normal (test code = 58793-8) NEGATIVE N UROBILINOGEN; Normal (test code = 72409-3) NORMAL N PROTEIN; Normal (test code = 39744-3) NEGATIVE N pH (test code = pH) 5 N URINE BLOOD; Abnormal (test code = 15802-6) ABOUT 50 A SPECIFIC GRAVITY; Normal (test code = 2965-2) 1.010 N KETONES; Normal (test code = 12502-4) NEGATIVE N BILIRUBIN; Normal (test code = 40465-7) NEGATIVE N COLOR URINE; Normal (test code = 5778-6) YELLOW N [facility]] CULTURE, URINE, YDYLZXG5008-13-93 09:36:00* Test Item Value Reference Range Interpretation Comments CULTURE (test code = CULTURE) See Comment CULTURE, URINE, ROUTINE MICRO NUMBER: [id number] TEST STATUS: FINAL SPECIMEN SOURCE: URINE SPECIMEN QUALITY: ADEQUATE RESULT: No Growth [facility][] LIPID PANEL WITH REFLEX TO DIRECT LDL 2019-03-20 15:28:00* Test Item Value Reference Range Interpretation Comments CHOLESTEROL, TOTAL; Normal (test code = 2093-3) 147 mg/dl <200 N HDL CHOLESTEROL; Normal (test code = 2085-9) 70 mg/dl >40 N TRIGLYCERIDES; Normal (test code = 2571-8) 62 mg/dl <150 N LDL-CHOLESTEROL; Normal (test code = 97470-4) 63 {MG/DL MADDIE} N Reference range: <100 Desirable range <100 mg/dL for primary prevention; <70 mg/dL for patients with CHD or diabetic patients with > or = 2 CHD risk factors. LDL-C is now calculated using the Kai-Simi calculation, which is a validated novel method providing better accuracy than the Friedewald equation in the estimation of LDL-C. Kai SS et al. MELISSA. 2013;310(19): 3380-5363 (http ://education.[employer]ger[employer].com/faq/VJI704) CHOL/HDLC RATIO (test code = CHOL/HDLC RATIO) 2.1 {CALC} <5.0 N NON HDL CHOLESTEROL (test code = NON HDL CHOLESTEROL) 77 {MG/DL CA L} <130 N For patients with diabetes plus 1 major ASCVD risk factor, treating to a non-HDL-C goal of <100 mg/dL (LDL-C of <70 mg/dL) is considered a therapeutic option. [facility]] CMP [id number] 15:28:00* Test Item Value Reference Range Interpretation Comments GLUCOSE; Normal (test code = 1547-9) 81 mg/dl 65-99 N Fasting reference interval UREA NITROGEN (BUN) (test code = UREA NITROGEN (BUN)) 17 mg/dl 7-25 N CREATININE (test code = CREATININE) 1.06 mg/dl 0.60-1.35 N eGFR NON- (test code = eGFR NON-LETITIA N SERBIAN) 84 {ML/MIN/1.7} > OR = 60 N eGFR (test code = eGFR ) 97 {ML/MIN/1.7} > OR = 60 N BUN/CREATININE RATIO (test code = BUN/CREATININE RATIO) NOT APPLICA BLE 6-22 SODIUM (test code = SODIUM) 143 mmol/L 135-146 N POTASSIUM (test code = POTASSIUM) 4.0 mmol/L 3.5-5.3 N CHLORIDE (test code = CHLORIDE) 108 mmol/L 98-110 N CARBON DIOXIDE (test code = CARBON DIOXIDE) 28 mmol/L 20-32 N CALCIUM (test code = CALCIUM) 9.8 mg/dl 8.6-10.3 N PROTEIN, TOTAL (test code = PROTEIN, TOTAL) 7.3 g/dl 6.1-8.1 N ALBUMIN (test code = ALBUMIN) 4.7 g/dl 3.6-5.1 N GLOBULIN (test code = GLOBULIN) 2.6 {G/DL CALC} 1.9-3.7 N ALBUMIN/GLOBULIN RATIO (test code = ALBUMIN/GLOBULIN RATIO) 1.8 {CALC} 1.0-2.5 N BILIRUBIN, TOTAL; Above High Threshold (test code = 75697-1) 1.3 mg/dl 0.2-1.2 ALKALINE PHSPHATASE (test code = ALKALINE PHSPHATASE) 42 u/l 40-115 N AST; Normal (test code = 1916-6) 24 u/l 10-40 N ALT; Normal (test code = 1742-6) 21 u/l 9-46 N [facility]] CREATINE KINASE, [id number] 15:28:00* Test Item Value Reference Range Interpretation Comments CREATINE KINASE, TOTAL (test code = CREATINE KINASE, TOTAL) 286 u/l 44-196 [facility]] T3, [id number] 15:28:00* Test Item Value Reference Range Interpretation Comments T3, TOTAL (test code = T3, TOTAL) 85 ng/dl 76-181 N [facility]] T4, [id number] 15:28:00* Test Item Value Reference Range Interpretation Comments T4, FREE (test code = T4, FREE) 1.4 ng/dl 0.8-1.8 N [facility]] TSH, 3RD [id number] 15:28:00* Test Item Value Reference Range Interpretation Comments TSH; Normal (test code = 77282-7) 1.10 {MIU/L} 0.40-4.50 N [facility]
--- OUTSIDE RECORDS SUMMARY | 2020-01-15 14:44 | XMS REPORT | Summary of Care ---
Author RONI Sarabia Organization Unknown Address Unknown Phone Unavailable Care Team Providers Care Bus Starter Name Role Phone TEREZA BARAJAS Unavailable Unavailable MONSE GARY [place], JOAQUIM MCCANN Unavailable Unavailable PATRIZIA PERDOMO MD Unavailable Unavailable MONSE Allison, JOAQUIM Unavailable Unavailable TEREZA BARNETT PA-C Unavailable Unavailable Unavailable Unavailable Functional Status Name Dates Details Functional status health issues are not documented Status: Name Dates Details Cognitive status health issues are not d ocumented Status: Problems Name Dates Details Malaise (780.79, R53.81) Status: Active Morbid obesity (278.01, E66.01) Status: Active BMI 37.0-37.9, adult (V85.37, Z68.37) Status: Active Back pain (724.5, M54.9) Status: Active Hyperlipidemia (272.4, E78.5) Status: Active Hypothyroidism (244.9, E03.9) Status: Active Word finding difficulty (V40.1, R47.89) Status: Active Nevus, non-neoplastic (448.1, I78.1) Status: Active 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 Quantity: 90 ERICKA Cabrales.Scott., TEREZA * Start : 02-Sep-2013 Active Humira [...] MOUTH EVERY DAY. * Quantity: 30 Refills: 1 BARNETT P.A., TEREZA * Start : 09-Jul-2018 [...] Z68.35) Status: Resolved Procedures Procedure Dates Details Procedures [...] (finding) Vital Signs Date Test Result Details No Known Vitals to report Results Date Description Value Details Results not documented Plan of Care Name Dates Details Planned Observations Planned Goals not documented Interventions Provided Medication Changes* Fenofibrate 145 MG Oral Tablet - Renew Instructions Name Dates [...]
--- OUTSIDE RECORDS SUMMARY | 2020-01-15 14:44 | XMS REPORT | Summary of Care ---
Author Author RONI Mcgee LVN [facility] [place] Unknown Address [facility] Phone Unavailable Care Team Providers Care Ship Rigger Name Role Phone BARNETT P.A., TEREZA Unavailable Unavailable MONSE GARY [place], JOAQUIM MCCANN Unavailable Unavailable PATRIZIA PERDOMO MD Unavailable Unavailable MONSE Allison, JOAQUIM Unavailable Unavailable BARNETTBECCA PANIAGUA, TEREZA Unavailable Unavailable Unavailable Unavailable Functional [...] TAKE 1 TABLET BY MOUTH EVERY DAY. DUE FOR 6 MONTH FOLLOW UP, NEEDS LABS AND OFFICE VISIT WITH PCP. PLEASE SCHEDULE APPOINTMENT. Quantity: 30 BARNETT P.A., TEREZA * Start : 02-Sep-2013 [...]
--- OUTSIDE RECORDS SUMMARY | 2020-01-15 14:44 | XMS REPORT | Summary of Care ---
Author RONI Sarabia Organization Unknown Address Unknown Phone Unavailable Care Team Providers Care Research Program Coordinator Name Role Phone TEREZA BARAJAS Unavailable Unavailable MONSE GARY [place], JOAQUIM MCCANN Unavailable Unavailable PATRIZIA PERDOMO MD [...] Z68.35) Status: Resolved Procedures Procedure Dates Details [QL] TSH, 3RD GENERATION W/REFLEX TO FT4 [...] Planned Goals not documented Interventions Provided Labs/Procedures/Imaging* [QL] TSH, 3RD GENERATION W/REFLEX TO FT4; [...]
--- OUTSIDE RECORDS SUMMARY | 2020-01-15 14:44 | XMS REPORT | Summary of Care ---
Author Author RONI Mcgee LVN [facility] Unknown Address [facility] Phone Unavailable Care Team Providers Care Spring Fitter Helper Name Role Phone BARNETT P.A., TEREZA Unavailable Unavailable MONSE GARY [place], JOAQUIM MCCANN Unavailable Unavailable PATRIZIA PERDOMO MD [...] Goals not documented Interventions Provided Medication Changes* Levoxyl 175 MCG Oral Tablet - Renew [...]
--- OUTSIDE RECORDS SUMMARY | 2020-01-15 14:44 | XMS REPORT | Summary of Care ---
Author RONI Baker M.A. Organization Unknown Address [facility] Phone Unavailable Care Team Providers Care Switchboard Operator Supervisor Name Role Phone ERICKA Romo TEREZA Unavailable Unavailable Jessy Mallory M.A. Unavailable Unavailable MONSE GARY [place], JOAQUIM MCCANN Unavailable Unavailable PATRIZIA PERDOMO MD [...]
--- OUTSIDE RECORDS SUMMARY | 2020-01-15 14:44 | XMS REPORT | Summary of Care ---
Author Author RONI BARAJAS Organization Unknown Address Unknown Phone Unavailable Care Team Providers Care Electrical Engineer Mep Name Role Phone TEREZA BARAJAS Unavailable Unavailable MONSE GARY [place], JOAQUIM MCCANN Unavailable Unavailable PATRIZIA PERDOMO MD [...] PCP. PLEASE SCHEDULE APPOINTMENT. Quantity: 30 BARNETT PTEREZA Romero * Start : 02-Sep-2013 Active Humira Pen [...]
--- OUTSIDE RECORDS SUMMARY | 2020-01-15 14:44 | XMS REPORT | Summary of Care ---
Author Author RONI Mcgee LVN [facility] Unknown Address [facility] Phone Unavailable Care Team Providers Care Boat Canvas Maker And Installer Name Role Phone BARNETT P.A., TEREZA Unavailable Unavailable MONSE GARY [place], JOAQUIM MCCANN Unavailable Unavailable PATRIZIA PERDOMO MD Unavailable Unavailable MONSE Allison, JOAQUIM Unavailable Unavailable BARNETT CHRISTINA-Ana, TEREZA Unavailable Unavailable Unavailable Unavailable Functional Status [...] Tablet TAKE 1 TABLET DAILY. Quantity: 90 BARNETT P.A., TEREZA * Start [...]
--- OUTSIDE RECORDS SUMMARY | 2020-01-15 14:44 | XMS REPORT | Summary of Care ---
Author Author [facility] Organization [facility] Address Unknown Phone Unavailable Care Team Providers Care Erco Machine Operator Name Role Phone PCP Unavailable Reason for Visit * Reason Comments Hospital Follow-up s/p PFO closure Encounter Details Care Team Description Date Type Department Rosa Elena Saleh AG-ACNP [address] [place] [address] Hospital Follow-up (s/p PFO closure) 10/24/[address] [facility] Cardiology [address], [address] [place] [address] Allergies No Known Allergiesdocumented as of this encounter (statuses as of 11/11/2019) Medications End Date Status Medication Sig Dispensed Refills Start Date 08/16/2020 Active aspirin EC 81 MG tablet Take 81 mg by 0 mouth. 0 08/15/2020 Active atorvastatin (LIPITOR) 80 Take 80 mg by 0 MG tablet mouth. 0 Active fenofibrate (TRICOR) 145 Take 145 mg 0 MG tablet by mouth. Active levothyroxine (SYNTHROID) Daily 0 200 MCG tablet Active Adalimumab (HUMIRA SC) Inject into 0 the skin every 14 days. Active clopidogrel (PLAVIX) 75 Take 1 Tab by 90 Tab 3 MG Tablet mouth daily. 0 11/04/2019 Discontinued (*Alternate the rapy) lisinopril (PRINIVIL, Take 1 Tab by 90 Tab 3 ZESTRIL) 5 MG tablet mouth daily. 0 documented as of this encounter (statuses as of 11/11/2019) Active Problems Problem Noted Date Cryptogenic stroke (HCCode) 09/13/2019 HTN (hypertension) 09/13/2019 HLD (hyperlipidemia) 09/13/2019 Psoriasis 09/13/2019 PFO (patent foramen ovale) 09/13/2019 documented as of this encounter (statuses as of 11/11/2019) Social History Date Tobacco Use Types Packs/Day Years Used Never Smoker Smokeless Tobacco: Never Used Sex Assigned at Date Recorded Not on file Industry Job Start Date Occupation Not on file Not on file Not on file Travel End Travel History Travel Start No recent travel history available. documented as of this encounter Last Filed Vital Signs Reading Time Taken Comments Vital Sign 136/84 10/24/2019 3:32 PM CDT Blood Pressure 81 10/24/2019 3:32 PM CDT Pulse - - Temperature - - Respiratory Rate 99% 10/24/2019 3:32 PM CDT Oxygen Saturation - - Inhaled Oxygen Concentration 147 kg (324 lb) 10/24/2019 3:32 PM CDT Weight 193 cm (6' 4") 10/24/2019 3:32 PM CDT Height 39.44 10/24/2019 3:32 PM CDT Body Mass Index documented in this encounter Patient Instructions * Patient Instructions* Rosa Elena Saleh AG-ACNP - 10/24/2019 3:00 PM CDT Thank you for choosing the [facility]. 1. Please let us know what we can do better. Please provide comments on the surv ey you will receive. We value your feedback. 2. Return to Clinic in 6 months 3. Start taking lisinopril 5 mg daily 4. Echo in 1 year. 5. Call office if new symptoms occur Tell Us About Your Experience You may receive an email or letter from [facility] via our partn er, Summer [employer]. This is a survey about your experience as a patient at [facility]. ? Please take time to fill out the survey as your feedback is important to us. ? If you would like to recognize one of our employees for great service, you can either write this on the Summer Moura survey or call our customer service repres entative at . Call Us You are also welcome to call us at if you would like to speak wit h a Auto Mechanic. Thank you for helping us to improve our service. We look forward to hearing from you. Your team today: ? Eric Appiah MD - Director Multimedia [phone] ? Rosa Elena Saleh NP - Nurse practitioner [phone] ? Jennifer Hubbard CMA - Sugarcane Planter [phone] ? Becca Espinoza, MPH - Academic Vice President [phone] Our Fax Number is [phone] documented in this encounter Progress Notes * Rosa Elena Saleh AG-ACNP - 10/24/2019 3:00 PM CDT Patient name: Barry Ventura : 1970 Today's date: 11/11/19 CHIEF COMPLAINT: PFO closure consult HISTORY OF PRESENT ILLNESS: Patient is a 49 year old male with past medical history significant for Barry J Lorenzo is a 49 y.o. old male with medical history significant for CVA s/p tPA 08/11/19, HTN, HLD, moderate PFO presents for follow-up of ILR for cryptoge darron stroke. Went to OSH with R sided weakness consistent with CVA, tPA was administered and he was transferred to [facility] for further management. Imaging showed R frontopariet [...] Otherwise feels well Denies palpitations, chest pain S/p PFO closure 10/03/2019 Echo today - no residual PFO shunting Dilated aortic root with some previously elevated BPs - will add ACEI for additi onal BP control PAST MEDICAL HISTORY: 1) Cryptogenic stroke - [...] MG tablet Take 80 mg by mouth. clopidogrel (PLAVIX) 75 MG Tablet Take 1 Tab by mouth daily. 90 Tab 3 fenofibrate (TRICOR) 145 MG tablet Take 145 mg by mouth. levothyroxine (SYNTHROID) 200 MCG tablet Daily losartan (COZAAR) 25 MG tablet Take 1 Tab by mouth daily. 90 Tab 3 No current facility-administered medications for this visit. 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 Psychiatric/Behavioral: Negative. PHYSICAL EXAMINATION: BP 136/84 | Pulse 81 | Ht 6' 4" (1.93 m) | Wt (!) 324 lb (147 kg) | SpO2 99% | BMI 39.44 kg/m General Appearance: Alert, cooperative, no distress, appears stated age Head: Normocephalic, without obvious abnormality, atraumatic Eyes: PERRL, conjunctiva/corneas clear Neck: Supple, symmetrical, trachea midline; no carotid bruit or JVD Lungs: Clear to auscultation bilaterally, respirations unlabored [...] lesions Psychiatry : Normal mood and Affect Neurologic: Alert and oriented x4, ANGEL PERTINENT TEST RESULTS: ECHO 10/24/2019 1. Left ventricular chamber size (by vol index) is mildly enlarged (male - LVED vol - 75-89 ml/m2) with no evidence of LV hypertrophy. LVEF by quantitative assessment is normal (55-60%). Normal diastolic function. 2. Normal RV size and systolic function. 3. LA size is moderately enlarged (42-48 ml/m2). RA cavity size is mildly enlarged. 4. A PFO occluder device appears normally deployed with no evidence of R to L shunt on color Doppler imaging. 5. Aortic root size (Sinus of Valsalva diameter) is mildly dilated adjusted to BSA: 4.3 cm. Proximal ascending aorta size is mild to moderately dilated. 4.2 cm. 6. No significant valvular abnormality. 7. Unable to estimate peak systolic PA pressure; inadequate TR velocity signal. No prior exam available for comparison. 10/04/2019 An atrial septal occluder device appears normally deployed. IV saline contrast injection was negative for a residual PFO (patent foramen ovale) at rest and post Valsalva . Normal left ventricular chamber size. No apparent segmental wall motion abnormalities. Estimated LVEF by qualitative assessment is normal (>60%) . Unable to estimate peak systolic PA pressure; inadequate TR velocity signal. 08/12/2019 LV endocardium is adequately visualized with [...] No prior studies available for comparison. WILLIAM 10/03/2019 An atrial septal occluder device appears normally deployed. No residual atrial level shunt noted by color Doppler. No significant pericardial effusion is visualized. 08/15/2019 Summary 1. Hypermobile, redundant interatrial septum [...] ILR Residual expressive aphasia, L arm tingling S/p PFO Closure, 10/03/19 - 25 mm Amplatzer PFO Occluder PFO Moderate shunting on TTE1, TEE08/15/2019 S/p PFO Closure, 10/03/19 - 25 mm Amplatzer PFO Occluder On ASA, plavix Aortic dilatation Mild dilation of aortic root, mild to moderate ascending aortic dilation, Echo 0 10/24/2019 Aggressive BP control HTN HLD On statin, fibrate Psoriasis On Humira PLAN: S/p PFO closure, 10/03/2019 Echo today with no residual PFO shunting Risk factor modification Serial echos to monitor PFO occluder device, aortic dilation BP control - monitor BP at home Start lisinopril 5 mg daily Statin, Fibrate ASA, plavix Weight loss Lifestyle modifications Return to clinic in 6 months Rosa Elena Saleh RN[facility] Nurse Practitioner/Instructor Office Office direct Nurse Practitioner to Eric Appiah MD [facility], [place] [address] documented in this encounter Plan of Treatment Care Team Description Date Type Specialty Lyn Chowdary MD [address] [facility] [address] [place] [address] 11/27/2019 Office Visit Cardiology Health Maintenance Due Date Last Done Comments TETANUS SHOT (ADULT) 1987 BMI FOLLOW UP PLAN 1990 HIV SCREENING 1990 FLU VACCINE > 6 MONTHS 03/14/2019 documented as of this encounter Procedures Comments Procedure Name Priority Date/Time Associated Diag nosis ELECTROCARDIOGRAM Routine 10/30/2019 PFO (patent foramen COMPLETE 3:03 PM CDT ovale) Hyperlipidemia, unspecified hyperlipidemia type documented in this encounter Results * ELECTROCARDIOGRAM COMPLETE (10/30/2019 3:03 PM CDT) Narrative Performed At This result has an attachment that is n ot available. 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
[2020-01-15] MEDS ORDERED: KETOROLAC TROMETHAMINE 30 MG/ML VIAL IV STA (17:28)
[2020-01-15] MEDS ORDERED: ONDANSETRON HCL INJ 2MG/ML 2ML 2 MG/ML VIAL IV STA (17:28)
[2020-01-15] MEDS ORDERED: SODIUM CHLORIDE 0.9% 1000ML 1,000 ML IV SCH (17:30)
[2020-01-15 18:05] LABS: BASOPHILS # (AUTO) 0.1 (0.0-0.1); BASOPHILS % 0.5 % (0.0-1.0); EOSINOPHILS # (AUTO) 0.1 (0.0-0.4); EOSINOPHILS % 0.6 % (0.0-6.0); HEMATOCRIT 44.2 % (38.2-49.6); HEMOGLOBIN 14.6 g/dL (14.0-18.0); LYMPHOCYTES # (AUTO) 1.2 (1.0-3.2); LYMPHOCYTES % 12.3 % (18.0-39.1); MEAN CORPUSCULAR HEMOGLOBIN 29.9 pg (28-32); MEAN CORPUSCULAR VOLUME 90.6 fL (81-99); MONOCYTES # (AUTO) 0.4 (0.2-0.8); MONOCYTES % 4.7 % (4.4-11.3); NEUTROPHILS # (AUTO) 7.7 (2.1-6.9); NEUTROPHILS % 81.6 % (38.7-80.0); PLATELET COUNT 234 x10e3/uL (140-360); RED BLOOD COUNT 4.88 x10e6/uL (4.3-5.7); RED CELL DISTRIBUTION WIDTH 12.7 % (11.7-14.4)
[2020-01-15 18:05] LABS: CLARITY,URINE SL CLOUDY (CLEAR); COLOR,URINE YELLOW (YELLOW); KETONES,URINE NEGATIVE (NEGATIVE); LEUKOCYTE ESTERASE ,URINE NEGATIVE (NEGATIVE); NITRITE,URINE NEGATIVE (NEGATIVE); PROTEIN,URINE DIPSTICK TRACE (NEGATIVE)
[2020-01-15 18:06] LABS: BILIRUBIN,URINE NEGATIVE (NEGATIVE); URINE UROBILINOGEN 0.2 mg/dL (0.2 - 1)
[2020-01-15 18:14] LABS: ALBUMIN 4.7 g/dL (3.5-5.0); ALBUMIN/GLOBULIN RATIO 1.3 (0.8-2.0); ANION GAP 15.3 mmol/L (8-16); CREATININE, SERUM 1.64 mg/dL (0.72-1.25); POTASSIUM 4.3 mmol/L (3.5-5.1)
[2020-01-15 18:15] LABS: AMYLASE 34 U/L (25-125); LIPASE 19 U/L (8-78)
--- NOTE | 2020-01-15 18:29 | Diagnostic Imaging Report ---
EXAM: CT Abdomen and Pelvis WITHOUT contrast INDICATION: Sharp abdominal pain. COMPARISON: None. TECHNIQUE: Abdomen and pelvis were scanned utilizing a multidetector helical scanner from the lung base to the pubic symphysis without administration of IV contrast. Absence of intravenous contrast decreases sensitivity for detection of focal lesions and vascular pathology. Coronal and sagittal reformations were obtained. Renal stone protocol was performed. IV CONTRAST: None. ORAL CONTRAST: Water RADIATION DOSE: Total DLP: 1432.91 mGy*cm Estimated effective dose: (DLP x 0.015 x size factor) mSv COMPLICATIONS: None FINDINGS: LINES and TUBES: None. LOWER THORAX: An atrial septal occlusion device is identified. HEPATOBILIARY: No focal hepatic lesions. No biliary ductal dilation. GALLBLADDER: No radio-opaque stones or sludge. No wall thickening. SPLEEN: No splenomegaly. PANCREAS: No focal masses or ductal dilatation. ADRENALS: No adrenal nodules KIDNEYS/URETERS: 3 mm obstructing calculus in the distal left ureter on image 167 series 3, resulting in mild proximal right hydroureter ureter hydronephrosis. There is also a 2 mm calculi is in the posterior interpolar region of the left kidney on image 79, and a 6 mm nonobstructing calculus in the lower pole of the left kidney on image 92 series 3. There are no right renal calculi. There is a 2.2 cm simple appearing cyst in the lower pole of the right kidney medially on image 95 series 3. GI TRACT: No abnormal distention, wall thickening, or evidence of bowel obstruction. Appendix is normal. PELVIC ORGANS/BLADDER: Punctate prostatic ossifications. LYMPH NODES: No lymphadenopathy. VESSELS: Unremarkable. PERITONEUM / RETROPERITONEUM: No free air or fluid. Mildly increased density of the root of the mesentery with a small mesentery lymph nodes suggestive of mild marian mesentery. BONES: There are degenerative changes in the imaged thoracolumbar spine. SOFT TISSUES: Phleboliths in the spermatic cord bilaterally. IMPRESSION: 1. 3 mm obstructing calculus in the distal left ureter resulting in mild left hydroureteronephrosis. 2. Additional left nephrolithiasis as detailed above. Signed by: Dr. Kristen Zuleta M.D. on 01/15/2020 6:25 PM
[2020-01-15 18:37] LABS: RBC,URINE 0-5 /HPF (0-5)
[2020-01-15 18:38] LABS: BACTERIA,URINE FEW /HPF; EPITHELIAL CELLS,URINE FEW /LPF
--- NOTE | 2020-01-15 19:11 | Emergency Department Note ---
History of Present Illnes History of Present Illness Chief Complaint: Abdominal Complaints History of Present Illness This is a 49 year old male PAIN THIS MORNING IN LLQ ABDOMEN, HAD 4 INSTANCES OF SOFT STOOL. HISTORY OF KIDNEY STONES. DENIES PAINFUL URINATION, DENIES NAUSEA, VOMITING, FEVER. Historian: Patient Arrival Mode: Car [employer] Required: No Onset (how long ago): hour(s) Location: LEFT SIDE ABDOMEN TO GROIN Quality: PAIN Radiation: other (GROIN) Severity: severe Onset quality: sudden Duration (how long): hour(s) Timing of current episode: constant Progression: waxing and waning Chronicity: new Context: recent illness Relieving factors: none Exacerbating factors: none Associated symptoms: denies other symptoms Treatments prior to arrival: none Past Medical/Family History Physician Review I have reviewed the patient's past medical and family history. Any updates have been documented here. Past Medical History Recent Fever: No Clinical Suspicion of Infectio: No New/Unexplained Change in Ment: No Past Medical History: Hypothyroidism, Hyperlipedemia Other Medical History: psoriasis Other Surgery: unk Social History Smoking Cessation: Never Smoker Alcohol Use: None Any Illegal Drug Use: No TB Exposure/Symptoms: No Physically hurt or threatened: No Other Last Tetanus: UTD Any Pre-Existing Lines (PICC,: No Is patient up to date on immun: Yes Last Flu: NO Last Pneumovax: no Review of Systems Review of Systems Constitutional: no symptoms EENTM: no symptoms Cardiovascular: no symptoms Respiratory: no symptoms Gastrointestinal: abdominal pain, nausea Genitourinary: no symptoms Musculoskeletal: no symptoms Neurological: no symptoms Psychological: no symptoms Endocrine: no symptoms Hematological/Lymphatic: no symptoms Review of other systems All other systems reviewed and negative. Physical Exam Related Data Allergies: Coded Allergies: levothyroxine sodium (Verified Allergy, Unknown, 08/11/19) Triage Vital Signs Vital Signs Date Time Temp Pulse Resp B/P (MAP) Pulse Ox O2 Delivery O2 Flow Rate FiO2 01/15/20 15:20 97.4 71 16 118/87 98 Physical Exam CONSTITUTIONAL Constitutional: well-developed, well-nourished HENT HENT: normocephalic, atraumatic, oropharynx clear/moist, nose normal HENT L/R: left ext ear normal, right ext ear normal EYES Eyes: PERRL, conjunctivae normal NECK Neck: ROM normal PULMONARY Pulmonary: effort normal, breath sounds normal CARDIOVASCULAR Cardiovascular: regular rhythm, heart sounds normal, capillary refill normal, normal rate GASTROINTESTINAL Abdominal: soft, nontender, bowel sounds normal; tender, guarding, rebound, left CVA tenderness, right CVA tenderness GENITOURINARY Genitourinary: exam deferred SKIN Skin: warm, dry MUSCULOSKELETAL Musculoskeletal: ROM normal NEUROLOGICAL Neurological: alert, oriented x 3, no gross motor or sensory deficits PSYCHOLOGICAL Psychological: mood/affect normal, judgement normal Results Laboratory Result Diagram: 01/15/20 1735 01/15/20 1735 Laboratory Laboratory Tests Test 01/15/20 17:36 01/15/20 17:35 Urine Color Yellow (YELLOW) Urine Clarity Sl cloudy (CLEAR) Urine pH 5.5 (5 - 7) Urine Specific [place] 1.030 (1.010-1.025) Urine Protein Trace (NEGATIVE) Urine Glucose (UA) Negative (NEGATIVE) Urine Ketones Negative (NEGATIVE) Urine Blood Small (NEGATIVE) Urine Nitrite Negative (NEGATIVE) Urine Bilirubin Negative (NEGATIVE) Urine Urobilinogen 0.2 mg/dL (0.2 - 1) Urine Leukocyte Esterase Negative (NEGATIVE) Urine RBC 0-5 /HPF (0-5) Urine WBC 6-10 /HPF (0-5) Urine Epithelial Cells Few /LPF (NONE) Urine Bacteria Few /HPF (NONE) White Blood Count 9.43 x10e3/uL (4.8-10.8) Red Blood Count 4.88 x10e6/uL (4.3-5.7) Hemoglobin 14.6 g/dL (14.0-18.0) Hematocrit 44.2 % (38.2-49.6) Mean Corpuscular Volume 90.6 fL (81-99) Mean Corpuscular Hemoglobin 29.9 pg (28-32) Mean Corpuscular Hemoglobin Concent 33.0 g/dL (31-35) Red Cell Distribution Width 12.7 % (11.7-14.4) Platelet Count 234 x10e3/uL (140-360) Neutrophils (%) (Auto) 81.6 % (38.7-80.0) Lymphocytes (%) (Auto) 12.3 % (18.0-39.1) Monocytes (%) (Auto) 4.7 % (4.4-11.3) Eosinophils (%) (Auto) 0.6 % (0.0-6.0) Basophils (%) (Auto) 0.5 % (0.0-1.0) Neutrophils # (Auto) 7.7 (2.1-6.9) Lymphocytes # (Auto) 1.2 (1.0-3.2) Monocytes # (Auto) 0.4 (0.2-0.8) Eosinophils # (Auto) 0.1 (0.0-0.4) Basophils # (Auto) 0.1 (0.0-0.1) Absolute Immature Granulocyte (auto 0.03 x10e3/uL (0-0.1) Sodium Level 142 mmol/L (136-145) Potassium Level 4.3 mmol/L (3.5-5.1) Chloride Level 106 mmol/L (98-107) Carbon Dioxide Level 25 mmol/L (22-29) Anion Gap 15.3 mmol/L (8-16) Blood Urea Nitrogen 24 mg/dL (7-26) Creatinine 1.64 mg/dL (0.72-1.25) Estimat Glomerular Filtration Rate 45 ML/MIN (60-) BUN/Creatinine Ratio 15 (6-25) Glucose Level 112 mg/dL (74-118) Calcium Level 10.0 mg/dL (8.4-10.2) Total Bilirubin 1.2 mg/dL (0.2-1.2) Aspartate Amino Transf (AST/SGOT) 34 IU/L (5-34) Alanine Aminotransferase (ALT/SGPT) 35 IU/L (0-55) Alkaline Phosphatase 48 IU/L (40-150) Total Protein 8.2 g/dL (6.5-8.1) Albumin 4.7 g/dL (3.5-5.0) Globulin 3.5 g/dL (2.3-3.5) Albumin/Globulin Ratio 1.3 (0.8-2.0) Amylase Level 34 U/L (25-125) Lipase 19 U/L (8-78) Lab results reviewed: Yes Imaging Imaging results reviewed: Yes Diagnostics Tests Diagnostic test(s) reviewed: Yes Critical Care Time Subsequent provider I assumed direction of critical care for this patient from another provider of my specialty. Assessment & Plan Assessment & Plan Final Impression: (1) CALCULUS OF URETER Assessment & Plan TORADOL UD, TYLENOL #3 UD, PUSH FLUIDS, STRAIN ALL URINE, CEFTIN UD, FLOMAX Depart Disposition: HOME, SELF-CARE Last Vital Signs Date Time Temp Pulse Resp B/P (MAP) Pulse Ox O2 Delivery O2 Flow Rate FiO2 01/15/20 18:29 98.7 78 16 127/83 100 Home Meds Reported Medications Levothyroxine Sodium (LEVOXYL) 200 Mcg Tablet, 250 MCG PO DAILY 06/28/12 Rosuvastatin Calcium (CRESTOR) 10 Mg Tab, 1 TAB PO DAILY 06/28/12 Fenofibrate (TRICOR) 145 Mg Tab, 1 TAB PO DAILY 06/28/12 Medications in the ED Ketorolac Tromethamine 30 mg ONCE STAT IV Last administered on 01/15/20at 17:39; Admin Dose 30 MG; Start 01/15/20 at 17:28; Stop 01/15/20 at 17:34; Status DC Ondansetron HCl 4 mg NOW STAT IV Last administered on 01/15/20at 17:41; Admin Dose 4 MG; Start 01/15/20 at 17:28; Stop 01/15/20 at 17:34; Status DC Sodium Chloride 1,000 ml @ 0 mls/hr Q0M IV Last administered on 01/15/20at 17:40; Admin Dose 999 MLS/HR; Start 01/15/20 at 17:30; Stop 02/14/20 at 17:29 PIYUSH ESPARZA MD Jan 15, 2020 19:11
== END 2020-01-15 19:45 | disposition home or self-care (01) ==
LOC: ER 14:40
DX: R10.32 Left lower quadrant pain (principal); N20.1 Calculus of ureter; E78.5 Hyperlipidemia, unspecified; E03.9 Hypothyroidism, unspecified; L40.9 Psoriasis, unspecified
CPT/HCPCS: 36415; 74176; 80053; 81001; 82150; 83690; 85025; 87086; 99284; J1885; J2405; J7030

== ENCOUNTER → 2020-03-17 | Outpatient (CLI) | payer BC ==
--- NOTE | 2020-03-17 16:16 | Diagnostic Imaging Report ---
Ultrasound testicle HISTORY: Varicocele TECHNIQUE: Grayscale, color flow and Doppler interrogation of the scrotum and bilateral testicles. High frequency linear transducer was used. COMPARISON: None. Number of images submitted: Multiple FINDINGS: Right testicle: Measures 4.9 x 2.2 x 3.2 cm. There is no focal mass or cyst. There is intact arterial and venous flow. The epididymis measures 0.7 x 0.8 x 0.8 cm. There is no cyst. There is no hydrocele. There is a small varicocele. Left testicle: Measures 5.1 x 2.2 x 3.0 cm. There is no focal mass or cyst. There is intact arterial and venous flow. The epididymis measures 1.1 x 0.7 x 0.9 cm. There is no cyst. There is a small hydrocele. There is no varicocele. IMPRESSION: Small isolated right varicocele. Isolated right preprocedure is unusual. Clinical correlation is recommended. Signed by: Jhonatan Monique MD on 03/17/2020 4:12 PM
== END ==
LOC: US 14:40
PROVIDERS: ATTEND Urology
DX: I86.1 Scrotal varices (principal)
CPT/HCPCS: 76870; 93976

== ENCOUNTER → 2020-05-01 | Day surgery (SDC) | payer BC, OTHER ==
[2020-04-28 15:51] LABS: BASOPHILS # (AUTO) 0.1 (0.0-0.1); EOSINOPHILS # (AUTO) 0.3 (0.0-0.4); HEMATOCRIT 42.5 % (38.2-49.6); HEMOGLOBIN 13.8 g/dL (14.0-18.0); LYMPHOCYTES % 42.6 % (18.0-39.1); MEAN CORPUSCULAR HGB CONC 32.5 g/dL (31-35); MEAN CORPUSCULAR VOLUME 89.3 fL (81-99); MONOCYTES # (AUTO) 0.7 (0.2-0.8); MONOCYTES % 9.4 % (4.4-11.3); NEUTROPHILS % 42.9 % (38.7-80.0); PLATELET COUNT 212 x10e3/uL (140-360); RED BLOOD COUNT 4.76 x10e6/uL (4.3-5.7); RED CELL DISTRIBUTION WIDTH 12.6 % (11.7-14.4)
[2020-04-28 16:06] LABS: ANION GAP 13.8 mmol/L (8-16); CALCIUM 9.8 mg/dL (8.4-10.2); CREATININE, SERUM 1.41 mg/dL (0.72-1.25); POTASSIUM 3.8 mmol/L (3.5-5.1)
[~2020-05-01] MED LIST changes: +ACETAMINOPHEN/CODEINE 300MG - 30MG TAB ONE; +ASPIRIN81 MG PO; +ATORVASTATIN CA20 MG PO; +B&O 60MG R/S 60 MG SUPP PR ONE; +CEFTRIAXONE SOD 1 GM/NS 50 ML 50 ML IV ONE; +CLOPIDOGREL75 MG PO; +DEXAMETHASONE SOD PHOS INJ 4 MG/ML VIAL ONE; +FENTANYL CITRATE/PF 100MCG/2 ML INJ ONE; +HUMIRA40 MG/0.8 IM; +HYDROCHLOROTH12.5 MG PO; +IOPAMIDOL 300MG/ML 50ML INFUS..BTL IV ONE; +LIDOCAINE HCL 2% JELLY 5 ML TUBE ONE; +LIDOCAINE HCL 2% LOCAL INJ 5 ML SDV VIAL INJ ONE; +LOSARTAN POTASS25 MG PO; +MIDAZOLAM HCL 2 MG/2 ML VIAL ONE; +ONDANSETRON HCL INJ 2MG/ML 2ML 2 MG/ML VIAL ONE; +SEVOFLURANE INHAL SOLN 250 ML PEN BTL ONE
[2020-05-01 11:30] VITALS: BP 127/80
--- NOTE | 2020-05-15 06:05 | Operative Report ---
DATE OF PROCEDURE: 05/01/2020 SURGEON: Cal Kaplan MD PREOPERATIVE DIAGNOSES: 1. Left nephrolithiasis. 2. Benign prostatic hypertrophy. POSTOPERATIVE DIAGNOSES: 1. Left nephrolithiasis. 2. Benign prostatic hypertrophy. OPERATION PERFORMED: 1. Cystourethroscopy with bilateral ureteral catheterization and retrograde ureteropyelography (separate procedure performed for benign prostatic hypertrophy). 2. Interpretation of retrograde ureteropyelography, no radiologist present. 3. Supervision of fluoroscopy, no radiologist present. 4. Left ureteroscopy with holmium laser lithotripsy and insertion of stent (separate procedure performed for nephrolithiasis). ANESTHESIA: General. COMPLICATIONS: None. CLINICAL SUMMARY: Barry Collins is a 50-year-old man, who has left nephrolithiasis and BPH. He is brought for management. He is aware of the risks of bleeding, infection, injury to adjacent structures, need for additional procedures, and elected to proceed. He also understands he will have a temporary indwelling ureteral stent and requires followup and removal. He understood these risks and elected to proceed. OPERATIVE PROCEDURE IN DETAIL: Informed consent was verified. Barry Collins was properly identified, taken to the operating room, and placed on the cystoscopy table in supine position, where anesthesia was uneventfully begun. The patient was then carefully and gently repositioned in the dorsal lithotomy position with all pressure points well padded. His genitalia were prepared and draped in usual sterile fashion. The cystoscope was inserted under direct vision with visual obturator in place. It was guided down unremarkable urethra, which was significant for some wide caliber bands consistent with not clinically significant urethral stricture disease. We went through the normal sphincteric region through the prostate bed, which was significant for BPH with early development of a median lobe and kissing lateral lobes and into the patient's bladder, where panendoscopy revealed mild trabeculations, but normal ureteral orifices. A ureteral catheter was used to cannulate the right ureter and retrograde ureteropyelograms were performed and was inserted in the left ureter and retrograde ureteropyelograms were performed. A guidewire was then placed into the left side and guided to the level of the patient's kidney. 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 We identified a large lower pole stone and a very small left upper pole stone. We performed holmium laser lithotripsy of the lower pole stone and fragmented them into numerous smaller fragments. We extracted some, but not all the fragments, but all the fragments should be passable given the stent. With cystoscope and fluoroscopic guidance, the left-sided indwelling ureteral stent was then placed, it was coiled in the patient's kidneys as well as the patient's bladder. The retaining suture was cut short. The patient's bladder was drained and cystoscope was withdrawn. Belladonna and opium suppository were placed revealing a 30 g prostate, smooth and nonfluctuant without any nodules. The patient was uneventfully reversed from anesthesia and taken to recovery room in stable condition. There were no complications to the procedure. He tolerated the procedure well. Exclusive postop instructions were given. Plans will be to return the patient to the operating room after several weeks to remove his stent, perform left ureteroscopy, and hopefully render the patient stent free and stone free at that time. Cal Kaplan MD [place]/MODL /[id number]
== END | disposition home or self-care (01) ==
LOC: OR 06:58
PROVIDERS: ATTEND Urology
DX: N20.0 Calculus of kidney (principal); N40.1 Benign prostatic hyperplasia with lower urinary tract symptoms; R39.14 Feeling of incomplete bladder emptying; N28.1 Cyst of kidney, acquired; R80.9 Proteinuria, unspecified; N13.30 Unspecified hydronephrosis; N32.89 Other specified disorders of bladder; N28.89 Other specified disorders of kidney and ureter; E03.9 Hypothyroidism, unspecified; I10 Essential (primary) hypertension; E78.5 Hyperlipidemia, unspecified; E66.9 Obesity, unspecified; I83.90 Asymptomatic varicose veins of unspecified lower extremity; Z88.8 Allergy status to other drugs, medicaments and biological substances; Z01.810 Encounter for preprocedural cardiovascular examination; Z01.812 Encounter for preprocedural laboratory examination; Z11.59 Encounter for screening for other viral diseases; Z79.02 Long term (current) use of antithrombotics/antiplatelets; Z79.82 Long term (current) use of aspirin; Z68.41 Body mass index [BMI] 40.0-44.9, adult; Z86.73 Personal history of transient ischemic attack (TIA), and cerebral infarction without residual deficits; Z84.1 Family history of disorders of kidney and ureter
CPT/HCPCS: 36415; 52356; 74420; 80048; 85025; 88300; 93005; C1766; C1769; C2617; J0696; J1100; J2001 ×2; J2250; J2405; J3010; Q9967; U0002

== ENCOUNTER → 2020-06-12 | Day surgery (SDC) | payer BC, OTHER ==
--- NOTE | 2020-06-09 15:31 | Diagnostic Imaging Report ---
EXAMINATION: CHEST 2 VIEWS INDICATION: Pre-operative COMPARISON: None FINDINGS: LINES/TUBES:None LUNGS:The lungs are well-inflated. No focal consolidation or pulmonary edema. PLEURA:No pleural effusion or pneumothorax. MEDIASTINUM:The cardiomediastinal silhouette appears normal in size and shape. BONES/SOFT TISSUES:No acute osseous injury. ABDOMEN:No free air under the diaphragm. IMPRESSION: No focal pneumonia or pulmonary edema. Signed by: William Younger MD on 06/09/2020 3:28 PM
--- NOTE | 2020-06-09 15:31 | Diagnostic Imaging Report ---
Exam: KUB - 2 views Indication: Urinary calculi Comparison: CT abdomen and pelvis of 01/15/2020 Findings: Left internal nephroureteral stent in place. No radiographically apparent urinary calculi. Nonobstructive bowel gas pattern. Phleboliths in the pelvis. No acute osseous injury. Impression: Left internal nephroureteral stent in place. No radiographically apparent urinary calculi. Signed by: William Younger MD on 06/09/2020 3:27 PM
[2020-06-09 15:33] LABS: BASOPHILS # (AUTO) 0.1 (0.0-0.1); BASOPHILS % 0.9 % (0.0-1.0); EOSINOPHILS # (AUTO) 0.4 (0.0-0.4); EOSINOPHILS % 4.3 % (0.0-6.0); HEMATOCRIT 42.8 % (38.2-49.6); HEMOGLOBIN 14.2 g/dL (14.0-18.0); LYMPHOCYTES # (AUTO) 3.1 (1.0-3.2); LYMPHOCYTES % 36.1 % (18.0-39.1); MEAN CORPUSCULAR HEMOGLOBIN 29.7 pg (28-32); MEAN CORPUSCULAR HGB CONC 33.2 g/dL (31-35); MEAN CORPUSCULAR VOLUME 89.5 fL (81-99); MONOCYTES # (AUTO) 0.7 (0.2-0.8); MONOCYTES % 8.6 % (4.4-11.3); NEUTROPHILS # (AUTO) 4.3 (2.1-6.9); NEUTROPHILS % 49.9 % (38.7-80.0); PLATELET COUNT 248 x10e3/uL (140-360); RED BLOOD COUNT 4.78 x10e6/uL (4.3-5.7); RED CELL DISTRIBUTION WIDTH 12.4 % (11.7-14.4)
[2020-06-09 15:48] LABS: ANION GAP 16.2 mmol/L (8-16); CALCIUM 10.2 mg/dL (8.4-10.2); CREATININE, SERUM 1.29 mg/dL (0.72-1.25); POTASSIUM 4.2 mmol/L (3.5-5.1)
[~2020-06-12] MED LIST changes: +GENTAMICIN 80MG/NS 100 ML 100 ML IV ONE; -LIDOCAINE HCL 2% JELLY 5 ML TUBE ONE; +PROPOFOL IV EMULSION 10 MG/ML 20 ML VIAL ONE
[2020-06-12 11:00] VITALS: BP 123/77
--- NOTE | 2020-06-12 22:08 | Operative Report ---
DATE OF PROCEDURE: 06/12/2020 SURGEON: Cal Kaplan MD PREOPERATIVE DIAGNOSES: 1. Nephrolithiasis. 2. Indwelling ureteral stents. 3. Ureteral stricture disease. POSTOPERATIVE DIAGNOSES: 1. Nephrolithiasis. 2. Indwelling ureteral stents. 3. Urethral stricture disease. OPERATIONS PERFORMED: 1. Cystourethroscopy with calibration and dilation of urethral stricture disease (separate procedure performed for the stricture). 2. Cystourethroscopy with complicated removal of left indwelling ureteral stents (separate procedure performed for the diagnosis of the stent done with separate scope). 3. Left ureteroscopy (separate procedure performed to evaluate for any residual nephrolithiasis). 4. Radiological services for supervision and interpretation of ureteroscopy, no radiologist present. 5. Interpretation of retrograde ureteropyelography, no radiologist present. 6. Supervision of fluoroscopy, no radiologist present. ANESTHESIA: General. COMPLICATIONS: None. CLINICAL SUMMARY: Barry Ventura is a 50-year-old man who had the urolithiasis managed. He has a stent left in place. He is brought for the above procedures. He is aware of the risks of bleeding, infection, injury to adjacent structures, need for additional procedures and elected to proceed. OPERATIVE PROCEDURE IN DETAIL: Informed consent was verified. Barry Ventura was properly identified, taken to the operating room, placed on the cystoscopy table in supine position. Anesthesia was uneventfully begun. The patient was then carefully and gently repositioned in the dorsal lithotomy position with all pressure points well padded. His genitalia were prepared and draped in usual sterile fashion. The 22.5-Turkish cystourethroscope sheath with the visual obturator in place was atraumatically negotiated into the patient's hypospadiac urethral meatus. The patient has urethral stricture. We calibrated the meatus and distal urethra at approximately 18 to 20-Turkish in size and we dilated to 22.5-Turkish utilizing the visual obturator and cystoscope sheath. We then negotiated the cystoscope down the remainder of the urethra, which contained bands consistent with longstanding urethral stricture disease, but there was not significant obstruction. We went through the normal sphincteric region and went through the prostate bed, which was significant for early BPH and we entered the patient's bladder. There were no suspicious lesions and no stones in the stent emerging from the left ureteral orifice. A guidewire was then placed alongside the stent and guided to the level of the patient's kidney. The stent was then grasped, completely removed, and discarded. Semi-rigid ureteroscopy was then performed. The distal ureter did not exhibit any stones. Flexible ureteroscopy was then performed by bringing the ureteroscope over the guidewire into the patient's kidney. Panendoscopy revealed the Lauri's plaques, but no residual stones. We carefully re-examined the ureter as we exited, it exhibited no stones, no strictures, no suspicious lesions. The bladder was drained. Cystoscope was withdrawn. The belladonna and opium suppository were placed revealing a 35 g prostate, smooth and non-fluctuant without any nodules. The patient was then uneventfully reversed from anesthesia and taken to recovery room in stable condition. Interpretation of retrograde ureteropyelography contrast was instilled in retrograde fashion on the left hand side. There were no tumors. There were no suspicious lesions. There was no hydronephrosis. Unobstructed drainage was observed fluoroscopically. Plans will be to follow the patient up in the office on a long-term basis in hopes of keeping the patient stone free. MD COLEEN Patel/ALEX /[id number]
== END | disposition home or self-care (01) ==
LOC: OR 07:55
PROVIDERS: ATTEND Urology
DX: N20.0 Calculus of kidney (principal); N35.911 Unspecified urethral stricture, male, meatal; Z46.6 Encounter for fitting and adjustment of urinary device; N20.1 Calculus of ureter; N13.30 Unspecified hydronephrosis; R80.9 Proteinuria, unspecified; I86.1 Scrotal varices; N28.1 Cyst of kidney, acquired; N40.0 Benign prostatic hyperplasia without lower urinary tract symptoms; N28.89 Other specified disorders of kidney and ureter; L40.9 Psoriasis, unspecified; I10 Essential (primary) hypertension; E03.9 Hypothyroidism, unspecified; E66.01 Morbid (severe) obesity due to excess calories; Z88.8 Allergy status to other drugs, medicaments and biological substances; Z01.812 Encounter for preprocedural laboratory examination; Z01.818 Encounter for other preprocedural examination; Z11.59 Encounter for screening for other viral diseases; Z79.02 Long term (current) use of antithrombotics/antiplatelets; Z79.82 Long term (current) use of aspirin; Z86.73 Personal history of transient ischemic attack (TIA), and cerebral infarction without residual deficits; Z84.1 Family history of disorders of kidney and ureter
CPT/HCPCS: 36415; 52351; 71046; 74018; 74420; 80048; 85025; C1769; J0696; J1100; J1580; J2001; J2250; J2405; J2704; J3010; Q9967; U0002

== ENCOUNTER → 2024-12-12 | Outpatient (REF) | payer BC ==
[~2024-12-12] MED LIST changes: -ACETAMINOPHEN/CODEINE 300MG - 30MG TAB ONE; -B&O 60MG R/S 60 MG SUPP PR ONE; -CEFTRIAXONE SOD 1 GM/NS 50 ML 50 ML IV ONE; -DEXAMETHASONE SOD PHOS INJ 4 MG/ML VIAL ONE; -FENTANYL CITRATE/PF 100MCG/2 ML INJ ONE; -GENTAMICIN 80MG/NS 100 ML 100 ML IV ONE; -IOPAMIDOL 300MG/ML 50ML INFUS..BTL IV ONE; -LIDOCAINE HCL 2% LOCAL INJ 5 ML SDV VIAL INJ ONE; -MIDAZOLAM HCL 2 MG/2 ML VIAL ONE; -ONDANSETRON HCL INJ 2MG/ML 2ML 2 MG/ML VIAL ONE; -PROPOFOL IV EMULSION 10 MG/ML 20 ML VIAL ONE; -SEVOFLURANE INHAL SOLN 250 ML PEN BTL ONE
== END ==
LOC: US 12:54
PROVIDERS: ATTEND Urology
DX: N20.0 Calculus of kidney (principal)
CPT/HCPCS: 74018; 76770; 76857